=== PATIENT | female | born 1930 | race African-American/Black ===

== ENCOUNTER 2017-12-08 20:47 | Inpatient (IN) | payer MEDICARE ==
[~2017-12-08] VITALS: Ht 152.4 cm; Wt 60.7 kg
[2017-12-09] MEDS ORDERED: DONE5TAB7 PO (00:53)
[2017-12-09] MEDS ORDERED: HYDR-3516 PO (00:53)
[2017-12-09 00:59] VITALS: BP 199/84; PULSE 85; RESP 18; TEMP 98.1; O2SAT 94
[2017-12-09] MEDS ORDERED: cloNIDine HCL 0.1 MG TAB PO ONE (01:30)
[2017-12-09] MEDS ORDERED: GLUCAGON 1 MG/ML VIAL OTHER PRN (02:30)
[2017-12-09] MEDS ORDERED: DEXTROSE 50% IN WATER 50 ML VIAL(D50) IV PUSH PRN (02:30)
--- NOTE | 2017-12-09 02:54 | HHI.HP ---
[facility] Service [facility] Hospitalists . Primary Care Physician Dr. Hernández . Admission Diagnosis Biliary Obstruction . Diagnoses: (1) Biliary obstruction (2) Hypertension (3) Neuropathy (4) Diabetic leg ulcer (5) Type 2 diabetes mellitus Chief Complaint: Abdominal pain Travel History International Travel<30 Days: No Contact w/Intl Traveler <30 Da: No History of Present Illness Ms. Petty is an 87 year-old female with a history of diet-controlled DM, hypertension, neuropathy, and chronic left leg diabetic ulcers who presented to [facility] in [place] on 12/07/17 for evaluation for 3 weeks of diffuse abdominal pain with nausea, poor appetite and unintentional 10 pound weight loss in a 3 week period. Had reported 1 melanotic stool that occurred 3 weeks ago with subsequent white-appearing stools. CT of the abdomen showed diffuse colonic wall thickening with mild infiltration of the surrounding fat concerning for pancolitis and also intrahepatic biliary ductal dilation with innumerable cystic lesions involving the body and the tail of the pancreas possibly reflecting malignancy or multiple pseudocysts. Admission bilirubin was 7.2, AST was 217, ALT was 338, and alkaline phosphatase 847. Imaging was suspicious for pancreatic neoplasm partially obstructing the biliary ductal system. ERCP sphincterectomy was attempted 12/08/[address] Lawler that he was unable to get through the obstruction and now plans a percutaneous cholangiogram this morning. Therefore, the patient was transferred from [place] to [facility] for the procedure with admission to the hospitalist service for medical optimization of diabetes and hypertension. Patient reports severe abdominal pain brought her to the ED in [place]. She states she had 7 loose liquid yellow stools in the ED there and the abdominal pain felt better. She also states she had some nausea and vomiting. Currently , all she is complaining of is mild diffuse abdominal pain. She reports adequate relief with IV morphine. She has some mild cognitive impairment c/w dementia. She reports that she has had the Left lower leg wounds r/t diabetes since "just after " 2016 and sees a [place] wound care physician once weekly for this. She states that she takes PRN Craig for the leg wound pain. Review of Systems Except as stated in HPI: all other systems reviewed are Neg Past Family Social History Past Medical History Hyperbilirubinemia, pancolitis, cystic lesions of the body and tail of the pancreas- Suspicion for pancreatic mass - found to 12/07/2017 Type 2 diabetes mellitus, diet controlled History of hypertension Dementia Neuropathy Chronic lower extremity diabetic ulcers . Past Surgical History Hysterectomy Knee surgery . Reported Medications Gabapentin 1 tab by mouth twice a day Donepezil 5 mg by mouth daily Craig 5/325 mg by mouth as needed for pain . Allergies: Coded Allergies: No Known Allergies (Unverified , 12/09/17) Active Ordered Medications Current Medications Donepezil HCl (Aricept) 5 mg HS PO ; Start 12/09/17 at 21:00 Clonidine (Catapres) 0.1 mg ONCE ONCE PO Last administered on 12/09/17at 01:32 ; Start 12/09/17 at 01:30; Stop 12/09/17 at 01:31; Status DC . Family History Mother with CVA Denies family history of CVA . Social History Tobacco: Never smoked Alcohol: Denies Illicit Drugs: Denies . Physical Exam Vital Signs Vital Signs Date Time Temp Pulse Resp B/P (MAP) Pulse Ox O2 Delivery O2 Flow Rate FiO2 12/09/17 00:59 98.1 85 18 199/84 (122) 94 Physical Exam GENERAL: This is a thin elderly female patient, in no apparent distress. SKIN: No rashes. Cool and dry. HEAD: Atraumatic. Normocephalic. EYES: No scleral icterus. No injection or drainage. ENT: Nose without bleeding, purulent drainage. Mucosa dry. NECK: Trachea midline. No JVD or lymphadenopathy. CARDIOVASCULAR: Regular rate and rhythm without murmurs, gallops, or rubs. RESPIRATORY: Clear to auscultation. Breath sounds equal bilaterally. No wheezes , rales, or rhonchi. GASTROINTESTINAL: Normal bowel sounds. Abdomen soft, tender, nondistended. No guarding. MUSCULOSKELETAL: Extremities without clubbing, cyanosis, or edema. No calf tenderness. NEUROLOGICAL: Awake and alert. Motor and sensory grossly within normal limits. Normal speech. . Laboratory Summary from [facility] 12/08/2017 WBC 5.4, hemoglobin 10.3, hematocrit 32.3, platelet count 206,000, INR 1.2, APTT 34.0 Sodium 141, potassium 3.3, chloride 105, carbon dioxide 26, anion gap 14, BUN 6.0, creatinine 0.25, estimated creatinine clearance 112.9, estimated GFR greater than 90, bun/creatinine ratio 24.0, fasting glucose 93, calcium 8.9, lipase on admission was normal at 39 . Imaging Summary from [facility] Abdominal ultrasound 12/08/2017 Gallbladder not visualized. Common bile duct dilated measuring 9 mm in diameter. Intrahepatic ductal dilatation. Diffuse coarsening of the hepatic echotexture compatible with fatty infiltration. Diffusely abnormal pancreas with multiple cystic collections throughout. Largest discrete cyst measuring 1.5 x 1.4 x 2.6 cm. Very little normal parenchyma noted. The prominence of the common bile duct and intrahepatic radicals are suspicious for cystic pancreatic neoplasm partially obstructing the biliary ductal system. CT of abdomen and pelvis with contrast dated 12/07/2017 Apparent cholecystectomy possibly accounting for intrahepatic and common bile duct dilatation though there is appearance of prompt tapering of the distal common bile duct with numerous cystic lesions within the pancreas. Pancreatic neoplasm could not be excluded. Diverticulosis without diverticulitis. Colonic wall thickening versus incomplete distention with possibly an underlying infectious/inflammatory process. Urinalysis performed 12/07/2017 was not consistent with UTI . Course EKG with rate of 64, QTC at 480 ms, sinus rhythm with marked right axis deviation and intraventricular conduction delay and extensive nonspecific ST and T wave changes . Caprini VTE Risk Assessment Caprini VTE Risk Assessment: Mod/High Risk (score >= 2) Caprini Risk Assessment Model Point Value = 1 Point Value = 2 Point Value = 3 Point Value = 5 Age 41-60 Minor surgery BMI > 25 kg/m2 Swollen legs Varicose veins or History of unexplained or recurrent spontaneous Oral contraceptives or hormone replacement Sepsis (< 1 month) Serious lung disease, including pneumonia (< 1 month) Abnormal pulmonary function Acute myocardial infarction Congestive heart failure (< 1 month) History of inflammatory bowel disease Medical patient at bed rest Age 61-74 Arthroscopic surgery Major open surgery (> 45 min) Laparoscopic surgery (> 45 min) Malignancy Confined to bed (> 72 hours) Immobilizing plaster cast Central venous access Age >= 75 History of VTE Family history of VTE Factor V Leiden Prothrombin [id number] Lupus anticoagulant Anticardiolipin antibodies Elevated serum homocysteine Heparin-induced thrombocytopenia Other congenital or acquired thrombophilia Stroke (< 1 month) Elective arthroplasty Hip, pelvis, or leg fracture Acute spinal cord injury (< 1 month) Prophylaxis Regimen Total Risk Factor Score Risk Level Prophylaxis Regimen 0-1 Low Early ambulation 2 Moderate Order ONE of the following: *Sequential Compression Device (SCD) *Heparin 5000 units SQ BID 3-4 Higher Order ONE of the following medications: *Heparin 5000 units SQ TID *Enoxaparin/Lovenox 40 mg SQ daily (WT < 150 kg, CrCl > 30 mL/min) *Enoxaparin/Lovenox 30 mg SQ daily (WT < 150 kg, CrCl > 10-29 mL/min) *Enoxaparin/Lovenox 30 mg SQ BID (WT < 150 kg, CrCl > 30 mL/min) AND/OR *Sequential Compression Device (SCD) 5 or more Highest Order ONE of the following medications: *Heparin 5000 units SQ TID (Preferred with Epidurals) *Enoxaparin/Lovenox 40 mg SQ daily (WT < 150 kg, CrCl > 30 mL/min) *Enoxaparin/Lovenox 30 mg SQ daily (WT < 150 kg, CrCl > 10-29 mL/min) *Enoxaparin/Lovenox 30 mg SQ BID (WT < 150 kg, CrCl > 30 mL/min) AND *Sequential Compression Device (SCD) Assessment and Plan Problem List: (1) Biliary obstruction ICD Code: K83.1 - Obstruction of bile duct (2) Type 2 diabetes mellitus ICD Code: E11.9 - Type 2 diabetes mellitus without complications Status: Chronic (3) Hypertension ICD Code: I10 - Essential (primary) hypertension (4) Neuropathy ICD Code: G62.9 - Polyneuropathy, unspecified (5) Diabetic leg ulcer ICD Code: E11.622 - Type 2 diabetes mellitus with other skin ulcer; L97.909 - Non-pressure chronic ulcer of unspecified part of unspecified lower leg with unspecified severity Assessment and Plan Ms. Petty is an 87 year-old female with a history of diet-controlled DM, hypertension, neuropathy, and chronic left leg diabetic ulcers who presented to [facility] in [place] on 12/07/17 for evaluation for 3 weeks of diffuse abdominal pain with nausea, poor appetite and unintentional 10 pound weight loss in a 3 week period. Had reported 1 melanotic stool that occurred 3 weeks ago with subsequent white-appearing stools. CT of the abdomen showed diffuse colonic wall thickening with mild infiltration of the surrounding fat concerning for pancolitis and also intrahepatic biliary ductal dilation with innumerable cystic lesions involving the body and the tail of the pancreas possibly reflecting malignancy or multiple pseudocysts. Admission bilirubin was 7.2, AST was 217, ALT was 338, and alkaline phosphatase 847. Imaging was suspicious for pancreatic neoplasm partially obstructing the biliary ductal system. ERCP sphincterectomy was attempted 12/08/[address] Lawler that he was unable to get through the obstruction and now plans a percutaneous cholangiogram this morning. Therefore, the patient was transferred from [place] to [facility] for the procedure with admission to the hospitalist service for medical optimization of diabetes and hypertension. Biliary obstruction Suspected pancreatic neoplasm - Dr. Lawler consulted - NPO - NS at 100 cc/hr - Morphine 1 mg IV every 3 hours when necessary for pain Hypertension - Patient's blood pressure was elevated upon arrival - Clonidine 0.1 mg by mouth was given - We'll monitor trends in blood pressure and adjust treatments as indicated - the patient does not appear to be on home medication for this according to the review of the records from [facility] - We will likely need maintenance medication for her blood pressure Type 2 Diabetes Mellitus - Accu-Cheks before meals and at bedtime with low-dose NovoLog sliding scale coverage - PRN Hypoglycemia protocol - Monitor trends and blood glucose readings and adjust treatments as indicated Neuropathy - We'll need to confirm dose of home Neurontin to resume Diabetic leg ulcers - Consult wound care nurse DVT prophylaxis SCDs/TEDs right lower extremity only, contraindicated due to left lower extremity wounds - discussed with RN at patient's bedside - chemoprophylaxis when cleared by GI . Discussed Condition With Patient, RN, and Dr. Riggins . Physician Certification 2 Midnight Certification Type: Admission for Inpatient Services Order for Inpatient Services The services are ordered in accordance with Medicare regulations or non- Medicare payer requirements, as applicable. In the case of services not specified as inpatient-only, they are appropriately provided as inpatient services in accordance with the 2-midnight benchmark. Estimated LOS (days): 3 days is the estimated time the patient will need to remain in the hospital, assuming treatment plan goals are met and no additional complications. Post-Hospital Plan: Not yet determined Niurka Sumner Dec 09, 2017 02:54
[2017-12-09] MEDS: SODIUM CHLOR 0.9% 1000 ML INJ 1,000 ML IV SCH ×3 (03:18→20:13)
[2017-12-09 04:00] VITALS: BP 167/69; PULSE 66; RESP 18; TEMP 98.5; O2SAT 93
[2017-12-09] MEDS: INSULIN ASPART SUPPLEMENTAL SCALE SQ SCH ×4 (07:53→21:00)
[2017-12-09 08:00] VITALS: BP 145/65; PULSE 80; RESP 19; TEMP 98; O2SAT 96
[2017-12-09] MEDS: FAMOTIDINE 20 MG/2 ML VIAL IV PUSH SCH ×2 (09:13→20:42)
[2017-12-09 11:00] LABS: AUTOMATED NEUTROPHIL # 4.1 TH/MM3 (1.8-7.7); BASOPHIL % 0.5 % (0.0-2.0); EOSINOPHIL % 0.4 % (0.0-4.0); HEMATOCRIT 31.2 % (35.0-46.0); HEMOGLOBIN 10.3 GM/DL (11.6-15.3); LYMPH % 20.4 % (9.0-44.0); LYMPHOCYTE # 1.2 TH/MM3 (1.0-4.8); MEAN CELL VOLUME 89.7 FL (80.0-100.0); MEAN CORPUSCULAR HEMOGLOBIN 29.7 PG (27.0-34.0); MEAN CORPUSCULAR HGB CONC 33.1 % (32.0-36.0); MEAN PLATELET VOLUME 9.6 FL (7.0-11.0); MONOCYTE # 0.7 TH/MM3 (0-0.9); NEUT % 67.7 % (16.0-70.0); PLATELET COUNT 220 TH/MM3 (150-450); RED BLOOD COUNT 3.48 MIL/MM3 (4.00-5.30); RED CELL DISTRIBUTION WIDTH 17.2 % (11.6-17.2)
[2017-12-09 11:22] LABS: ALBUMIN 2.4 GM/DL (3.4-5.0); AST (GOT) 170 U/L (15-37); BICARBONATE 28.1 MEQ/L (21.0-32.0); BLOOD UREA NITROGEN 7 MG/DL (7-18); CALCIUM 9.1 MG/DL (8.5-10.1); CHLORIDE 106 MEQ/L (98-107); CREATININE 0.48 MG/DL (0.50-1.00); GLOMERULAR FILTRATION RATE 148 ML/MIN (>89); GLUCOSE,RANDOM 71 MG/DL (74-106); SODIUM (NA) 141 MEQ/L (136-145)
[2017-12-09 11:23] LABS: ALT (GPT) 285 U/L (10-53)
[2017-12-09 11:25] LABS: ALKALINE PHOSPHATASE 823 U/L (45-117); TOTAL PROTEIN 6.4 GM/DL (6.4-8.2)
[2017-12-09 12:00] VITALS: BP 165/74; PULSE 68; RESP 18; TEMP 97.4; O2SAT 99
--- NOTE | 2017-12-09 14:32 | RADRPT ---
EXAM DATE/TIME: 12/09/2017 13:46 [place] COMPARISON: No previous studies available for comparison. INDICATIONS : Pancreatic mass. CONTRAST: 20 cc Omniscan (gadodiamide) IV MEDICAL HISTORY : Hypertension. Diabetes mellitus type 2. SURGICAL HISTORY : Hysterectomy. Knee surgery. ENCOUNTER: Initial ACUITY: 1 day PAIN SCORE: 4/10 LOCATION: Abdomen. TECHNIQUE: Multiplanar, multisequence magnetic resonance imaging of the abdomen was performed. High-resolution 3D dataset was utilized to reconstruct maximum-intensity projection (MIP) images. FINDINGS: INTRAHEPATIC BILE DUCTS: There is mild patient of the biliary tree. EXTRAHEPATIC BILE DUCTS: The common bile duct measures 1.3 cm. No stone or filling defect is identified. However, the distal c ommon bile duct is not well-visualized. However, there is a segment which appears to be tapered sugge stive of a stricture.. GALLBLADDER: Nonvisualized. Most likely surgically removed. LIVER: Normal size and signal intensity. No liver lesion is identified. Portal vein is within normal limits . PANCREAS: There is diffuse dilatation of the pancreatic duct and there are numerous cystic structures throughou t the entire pancreas. This is most likely from chronic pancreatitis. There is a nonspecific increase d soft tissue in the head of the pancreas. This could be a mass. OTHER: The remaining visualized structures demonstrate no acute abnormality. CONCLUSION: 1. There is dilatation of the common bile duct measuring at 1.3 cm. There is narrowing of the distal common bile duct suspicious for a stricture. There is some nonspecific increased soft tissue in the h ead of the pancreas. This is suspicious for a pancreatic mass. Recommend ERCP for further evaluation. 2. There is diffuse dilatation of the main pancreatic duct with numerous cystic type lesions througho ut the entire pancreas. This is probably related to chronic pancreatitis. Fredy De La Fuente MD on December 09, 2017 at 14:19 Board Certified Radiologist. This report was verified electronically.
[2017-12-09] MEDS ORDERED: GADODIAMIDE PF 287 MG/ML 10 ML VIAL (for RAD MRI) IVCONTRAST ONE (15:50)
[2017-12-09 16:00] VITALS: BP 171/77; PULSE 70; RESP 19; TEMP 97.6; O2SAT 100
[2017-12-09 17:58] LABS: INTERNATIONAL NORMALIZED RATIO 1.1 RATIO; PROTHROMBIN TIME - PATIENT 11.6 SEC (9.8-11.6)
--- NOTE | 2017-12-09 18:27 | MB ---
cc: CHRISTINA MONTOYA M.D. DATE OF CONSULTATION: 12/09/2017. REASON FOR CONSULTATION: Obstructive jaundice. DATE OF : 1930. REFERRING PHYSICIAN: Dr. Riggins. HISTORY OF PRESENT ILLNESS: Thank you for the consultation. This is an 87-year-old lady who has multiple medical problems. The patient was at [facility] yesterday for jaundice and general weakness for three weeks with nausea and abdominal pain. She had lost weight in the last few weeks. The patient had one episode of bleeding. The patient had CT scan which showed diffuse colonic wall thickening and questionable pancolitis. Also she has dilated biliary tree with cystic lesion in the body and tail of the pancreas, possibly malignancy, with dilation of biliary tree. The patient had ERCP which showed dilation of the pancreatic duct and abrupt cut in the common bile duct so a stent was not possible to place cause the wire could not go up the duct across the stricture so the patient was transferred to this hospital for radiological procedure with PTC. The patient denies any significant problems. She feels okay at this time. She is still generally weak. REVIEW OF SYSTEMS: All twelve points negative except for the history of present illness. PAST MEDICAL HISTORY: Past medical history significant for: 1. Mild dementia. 2. Neuropathy. 3. Diabetes with diabetic ulcer. 4. Hypertension. 5. Questionable pancolitis. 6. Hysterectomy. 7. Knee surgery. MEDICATIONS: Reviewed in the chart. ALLERGIES: NO KNOWN DRUG ALLERGIES. FAMILY HISTORY: Family history is significant for CVA. SOCIAL HISTORY: No tobacco, drugs or alcohol. PHYSICAL EXAMINATION: GENERAL: Alert, oriented, and in no acute distress. VITAL SIGNS: Vital signs are stable. HEAD, EYES, EARS, NOSE, THROAT: Pupils are round and reactive to light. NECK: The neck is supple. CHEST: Clear to auscultation and percussion. CARDIAC: Regular rate and rhythm. ABDOMEN: Abdomen soft. Mild discomfort throughout the abdomen. Positive bowel sounds. No hepatosplenomegaly. EXTREMITIES: No edema, clubbing or cyanosis. NEUROLOGIC: Neurologically intact. PSYCHIATRIC: Psychologically appropriate. LABORATORY DATA: White count 6.0, hemoglobin 10.3, platelet 220,000. Total bilirubin 7.0. AST 170. ALT 285. Alkaline phosphatase 823. IMAGING STUDIES: MRI showed dilatation of the common bile duct measuring up to 1.3 cm with narrowing of the distal duct suspicious for stricture. Increased soft tissue of the head of the pancreas, questionable pancreatic mass. Multiple cysts throughout the mass. ASSESSMENT AND PLAN: An 87-year-old lady who has obstructive jaundice with common bile duct stricture and dilatation. The patient will need PTC. I discussed the case with Dr. Chaudhari and he is going to plan the procedure tomorrow with possible stent placement. The patient will need to follow on the tumor markers. She might need endoscopic ultrasound with biopsy for the pancreas if she feels that she wants to be aggressive in the treatment. Questionable colitis. The patient denies any diarrhea. No other symptoms. Will consider colonoscopy when the patient is more stable and after done with the issue of the pancreas. MD STANFORD Moy/JOSSELYN /3:35 PM /6:15 PM
[2017-12-09] MEDS: ONDANSETRON HCL 4 MG/2 ML VIAL IV PUSH PRN (20:42)
[2017-12-09 20:45] VITALS: BP 164/70; PULSE 67; RESP 17; TEMP 97.7; O2SAT 97
[2017-12-09] MEDS: DONEPEZIL HCL 5 MG TAB PO SCH (20:48)
[2017-12-10 00:45] VITALS: BP 145/68; PULSE 60; RESP 20; TEMP 98.8; O2SAT 98
[2017-12-10 05:45] VITALS: BP 150/69; PULSE 66; RESP 19; TEMP 97; O2SAT 98
[2017-12-10 08:00] VITALS: BP 155/72; PULSE 66; RESP 19; TEMP 98.2; O2SAT 96
[2017-12-10] MEDS: INSULIN ASPART SUPPLEMENTAL SCALE SQ SCH ×4 (08:00→21:00)
[2017-12-10] MEDS: FAMOTIDINE 20 MG/2 ML VIAL IV PUSH SCH ×2 (08:21→20:13)
--- NOTE | 2017-12-10 10:58 | HHI.PR ---
Subjective Remarks Follow-up for common bile duct obstruction secondary to pancreatic mass Patient stated that she was very sleepy today. She continues abdominal pain. Feels a little nauseous. Denies any vomiting. She remains afebrile. No other concerns. Objective Vitals Vital Signs Date Time Temp Pulse Resp B/P (MAP) Pulse Ox O2 Delivery O2 Flow Rate FiO2 12/10/17 08:00 98.2 66 19 155/72 (99) 96 12/10/17 05:45 97.0 66 19 150/69 (96) 98 12/10/17 00:45 98.8 60 20 145/68 (93) 98 12/09/17 20:45 97.7 67 17 164/70 (101) 97 12/09/17 16:00 97.6 70 19 171/77 (108) 100 12/09/17 12:00 97.4 68 18 165/74 (104) 99 I/O 12/09/17 12/09/17 12/09/17 12/10/17 12/10/17 12/10/17 07:00 15:00 23:00 07:00 15:00 23:00 Intake Total 302 ml 800 ml 0 ml Balance 302 ml 800 ml 0 ml Intake Oral 800 ml 0 ml IV Total 302 ml # Voids 3 0 2 # Bowel Movements 1 0 0 Result Diagram: 12/09/1745 12/09/17844 Objective Remarks GENERAL: thin female in NAD CARDIOVASCULAR: Regular rate and rhythm without murmurs, gallops, or rubs. RESPIRATORY: Breath sounds equal bilaterally. No accessory muscle use. GASTROINTESTINAL: Abdomen soft, TTP with deep palpation in RUQ, nondistended. Negative for any peritoneal signs. Medications and IVs Current Medications Donepezil HCl (Aricept) 5 mg HS PO Last administered on 12/09/17at 20:48; Start 12/09/17 at 21:00 Clonidine (Catapres) 0.1 mg ONCE ONCE PO Last administered on 12/09/17at 01:32 ; Start 12/09/17 at 01:30; Stop 12/09/17 at 01:31; Status DC Famotidine (Pepcid Inj) 10 mg Q12H IV PUSH Last administered on 12/10/17at 08:21 ; Start 12/09/17 at 09:00 Sodium Chloride 1,000 ml @ 100 mls/hr Q10H IV Last administered on 12/09/17at 13:00; Start 12/09/17 at 03:00 Dextrose (D50w (Vial) Inj) 50 ml UNSCH PRN IV PUSH HYPOGLYCEMIA-SEE COMMENTS; Start 12/09/17 at 02:30 Glucagon (Glucagon Inj) 1 mg UNSCH PRN OTHER HYPOGLYCEMIA-SEE COMMENTS; Start 12/09/17 at 02:30 Insulin Aspart (NovoLOG SUPPLEMENTAL SCALE) 1 ACHS SLIDING SCALE SQ ; Start at 08:00 Morphine Sulfate (Morphine Inj) 1 mg Q3H PRN IV PUSH Pain > 3; Start 12/09/17 at 02:30 Ondansetron HCl (Zofran Inj) 4 mg Q6HR PRN IV PUSH NAUSEA OR VOMITING Last administered on 12/09/17at 20:42; Start 12/09/17 at 02:30 Gadodiamide (Omniscan Pf Inj) 9 ml STK-MED ONCE IVCONTRAST Last administered on 12/09/17at 15:50; Start 12/09/17 at 15:50; Stop 12/09/17 at 15:51; Status DC A/P Problem List: (1) Biliary obstruction ICD Code: K83.1 - Obstruction of bile duct (2) Type 2 diabetes mellitus ICD Code: E11.9 - Type 2 diabetes mellitus without complications Status: Chronic (3) Hypertension ICD Code: I10 - Essential (primary) hypertension (4) Neuropathy ICD Code: G62.9 - Polyneuropathy, unspecified (5) Diabetic leg ulcer ICD Code: E11.622 - Type 2 diabetes mellitus with other skin ulcer; L97.909 - Non-pressure chronic ulcer of unspecified part of unspecified lower leg with unspecified severity Assessment and Plan Ms. Petty is an 87 year-old female with a history of diet-controlled DM, hypertension, neuropathy, and chronic left leg diabetic ulcers who presented to [facility] in [place] on 12/07/17 for evaluation for 3 weeks of diffuse abdominal pain with nausea, poor appetite and unintentional 10 pound weight loss in a 3 week period. Had reported 1 melanotic stool that occurred 3 weeks ago with subsequent white-appearing stools. CT of the abdomen showed diffuse colonic wall thickening with mild infiltration of the surrounding fat concerning for pancolitis and also intrahepatic biliary ductal dilation with innumerable cystic lesions involving the body and the tail of the pancreas Biliary obstruction s/p ERCP sphincterectomy was attempted 12/08/[address] 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 Lawler consulted and he consulted IR for PCI. - NPO, on NS at 100 cc/hr, and Morphine 1 mg IV every 3 hours when necessary for pain. -We will repeat labs today. Hypertension - Patient's blood pressure was elevated upon arrival - Clonidine 0.1 mg by mouth was given -Continue current regimen. Type 2 Diabetes Mellitus - Accu-Cheks before meals and at bedtime with low-dose NovoLog sliding scale coverage - PRN Hypoglycemia protocol - Monitor trends and blood glucose readings and adjust treatments as indicated Neuropathy -Pending confirmation for patient's Neurontin dosage. Diabetic leg ulcers - Consult wound care nurse DVT prophylaxis SCDs/TEDs right lower extremity only, contraindicated due to left lower extremity wounds - discussed with RN at patient's bedside - chemoprophylaxis when cleared by GI Discharge Planning Patient scheduled for PCI today with IR. Lanny Ledezma MD Dec 10, 2017 10:57
--- NOTE | 2017-12-10 11:46 | HHI.GIFU ---
Subjective Remarks Up In room Complaints of dysphagia Dates she is planned for EGD today Objective Vitals I&O Vital Signs Date Time Temp Pulse Resp B/P (MAP) Pulse Ox O2 Delivery O2 Flow Rate FiO2 12/10/17 08:00 98.2 66 19 155/72 (99) 96 12/10/17 05:45 97.0 66 19 150/69 (96) 98 12/10/17 00:45 98.8 60 20 145/68 (93) 98 12/09/17 20:45 97.7 67 17 164/70 (101) 97 12/09/17 16:00 97.6 70 19 171/77 (108) 100 12/09/17 12:00 97.4 68 18 165/74 (104) 99 I/O 12/09/17 12/09/17 12/09/17 12/10/17 12/10/17 12/10/17 07:00 15:00 23:00 07:00 15:00 23:00 Intake Total 302 ml 800 ml 0 ml Balance 302 ml 800 ml 0 ml Intake Oral 800 ml 0 ml IV Total 302 ml # Voids 3 0 2 # Bowel Movements 1 0 0 Laboratory Laboratory Tests Test 12/09/17 17:17 Prothrombin Time 11.6 Prothromb Time International Ratio 1.1 Activated Partial Thromboplast Time 21.7 Physical Exam HEENT: Normocephalic atraumatic NECK: Neck is supple, no obvious deformity CHEST: No obvious shortness of breath CARDIAC: Regular rate and rhythm with no murmur gallop or rubs. ABDOMEN: Soft, nondistended, nontender; no hepatosplenomegaly; bowel sounds are present in all four quadrants. EXTREMITIES: No clubbing, cyanosis, or edema. SKIN: Normal; no rash; no jaundice. TRANSMISSION REPAIRER: No focal deficits; alert and oriented times three. Assessment and Plan Plan Plan EGD today, probable dilation will be needed Further recommendations after testing today This was a brief visit per myself, will also be seen per Dr. Santacruz during EGD Pamela Lee Dec 10, 2017 11:46
[2017-12-10 12:00] VITALS: BP 181/82; PULSE 72; RESP 19; TEMP 97.8; O2SAT 96
[2017-12-10] MEDS ORDERED: ONDANSETRON HCL 4 MG/2 ML VIAL IV ONE (12:00)
[2017-12-10] MEDS ORDERED: LABETALOL HCL 100 MG/20 ML VIAL IV ONE (12:00)
[2017-12-10] MEDS ORDERED: PROPOFOL 200 MG/20 ML AMP IV ONE (12:00)
[2017-12-10] MEDS ORDERED: DEXAMETHASONE SOD PHOS 4 MG/ML VIAL IV ONE (12:00)
[2017-12-10] MEDS: amLODIPine BESYLATE 5 MG TAB PO SCH (12:20)
[2017-12-10] MEDS ORDERED: LEVOFLOXACIN 500 MG PREMIX INJ 100 ML IV ONE (13:38)
[2017-12-10] MEDS ORDERED: IOHEXOL 350 MG/ML 50 ML BTL (for RAD DIAG) OTHER ONE (14:09)
--- NOTE | 2017-12-10 14:13 | PD.RAD ---
Post Procedure Progress Note Pre Procedure Diagnosis: (1) Biliary obstruction Post Procedure Diagnosis: (1) Biliary obstruction Procedure Date: Dec 10, 2017 Supervising Radiologist: Bertram Chaudhari Proceduralist/Assist: RT Raji(R) Anesthesia: MAC Plan of Activity Patient to Unit: PACU Patient Condition: Fair See PACS Report for procedural detail/treatment Drainage Procedure Procedure 1 Imaging Guidance: Fluoroscopy Side: Right Procedure Type: Biliary Drainage Procedure: Placement Kyrgyz: 8 Drainage: Marked Tree drainage Fluid Description: Bloody, Bilious Findings: distal CBD mass/stricture Plan cholangiogram with biopsy tomorrow Bertram Chaudhari MD Dec 10, 2017 14:13
[2017-12-10] MEDS ORDERED: *ONDANSETRON 4 MG VIAL PERIprocedural Use ONLY ONE (14:23)
--- NOTE | 2017-12-10 14:31 | RADRPT ---
EXAM DATE/TIME: 12/10/2017 14:38 [facility] COMPARISON: No previous studies available for comparison. INDICATIONS : Patient with a history of biliary obstruction. 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 DEVICE(S): 1.) 8 Kyrgyz internal/external biliary drain Anesthesia and pain control was provided by the Anesthesia department. TECHNIQUE: The patient was placed supine on the fluoroscopy table. Department of anesthesia repre sentatives were present for assistance with monitoring and sedation. The abdomen was prepped in steri le fashion. Full sterile technique was used, including cap, mask, sterile gloves and gown and a large sterile sheet. Hand hygiene and 2% chlorhexidine and/or betadine/alcohol prep was utilized per mariela col for cutaneous antisepsis. The skin and subcutaneous tissues were infiltrated with lidocaine solut ion. A small dermatotomy was made. Under direct fluoroscopic guidance, a 22 gauge Chiba needle was used to puncture into the right lobe of the liver. Small volume test contrast injections were performed. A peripheral biliary radical was fairly quickly identified and a 0.018 inch guidewire was introduced and manipulated into the common b ile duct. An AccuStick dilator was used to assist with insertion of a small caliber dilator. The quiñones sparenchymal tract was tested over a Tograysony-Juliann adapter revealing direct access into the biliary kaushik e with no significant vascular opacification identified. The AccuStick was then additionally used to assist with insertion of a larger dilator which was then used to manipulate a stiff angled Glidewire through a distal obstruction and into the duodenum.. The transparenchymal tract was dilated. An 8 Kyrgyz internal/external biliary drainage catheter was t hen inserted and formed up with loop in the second portion of the duodenum. Side holes extended up in to proximal biliary branch vessels. The catheter was secured with silk suture and connected to gravit y drainage with good return of bile. The patient tolerated the procedure well and was taken to recove ry in stable condition. FINDINGS: Moderate intra-and extrahepatic biliary ductal dilatation. Distal mass/stricture. CONCLUSION: Uncomplicated fluoroscopic guided percutaneous biliary drainage as described in rhoda l above. After adequate decompression of the biliary tree, the patient can return for dedicated chola ngiography and forcep biopsy tomorrow. Bertram Chaudhari MD on December 10, 2017 at 14:26 Board Certified Radiologist. This report was verified electronically.
[2017-12-10] MEDS ORDERED: DO NOT ADM ANY ANTICOAGULANT DRUGS PRN (14:45)
[2017-12-10] MEDS ORDERED: *ENALAPRILAT 1.25 MG/ML VIAL PERIprocedural Use ONLY ONE (15:00)
[2017-12-10 16:00] VITALS: BP 199/81; PULSE 55; RESP 18; TEMP 97.9; O2SAT 96
[2017-12-10] MEDS: cloNIDine HCL 0.1 MG TAB PO PRN (16:15)
[2017-12-10 17:22] LABS: HEMATOCRIT 35.2 % (35.0-46.0); HEMOGLOBIN 11.6 GM/DL (11.6-15.3); MEAN CELL VOLUME 90.3 FL (80.0-100.0); MEAN CORPUSCULAR HEMOGLOBIN 29.8 PG (27.0-34.0); MEAN PLATELET VOLUME 9.7 FL (7.0-11.0); PLATELET COUNT 239 TH/MM3 (150-450); RED CELL DISTRIBUTION WIDTH 17.7 % (11.6-17.2); WHITE BLOOD COUNT 4.8 TH/MM3 (4.0-11.0)
[2017-12-10 17:42] LABS: ALKALINE PHOSPHATASE 930 U/L (45-117); TOTAL BILIRUBIN ADULT 9.2 MG/DL (0.2-1.0); TOTAL PROTEIN 7.5 GM/DL (6.4-8.2)
[2017-12-10 17:44] LABS: ALBUMIN 2.7 GM/DL (3.4-5.0); ALT (GPT) 328 U/L (10-53); AST (GOT) 257 U/L (15-37); BICARBONATE 27.3 MEQ/L (21.0-32.0); BLOOD UREA NITROGEN 5 MG/DL (7-18); CALCIUM 9.1 MG/DL (8.5-10.1); CHLORIDE 103 MEQ/L (98-107); CREATININE 0.52 MG/DL (0.50-1.00); GLOMERULAR FILTRATION RATE 135 ML/MIN (>89); GLUCOSE,RANDOM 143 MG/DL (74-106); SODIUM (NA) 138 MEQ/L (136-145)
[2017-12-10 20:00] VITALS: BP 174/77; PULSE 64; RESP 18; TEMP 99.1; O2SAT 97
[2017-12-10] MEDS: ONDANSETRON HCL 4 MG/2 ML VIAL IV PUSH PRN (20:13)
[2017-12-10] MEDS: DONEPEZIL HCL 5 MG TAB PO SCH (20:13)
[2017-12-11] VITALS (13 sets, daily range): BP systolic 126–180; BP diastolic 64–79; PULSE 62–88; RESP 16–20; TEMP 97.4–98.4; O2SAT 95–98
[2017-12-11] MEDS: SODIUM CHLOR 0.9% 1000 ML INJ 1,000 ML IV SCH ×2 (05:00→17:09)
[2017-12-11 07:11] LABS: HEMOGLOBIN 10.4 GM/DL (11.6-15.3); MEAN CELL VOLUME 88.1 FL (80.0-100.0); MEAN CORPUSCULAR HEMOGLOBIN 29.6 PG (27.0-34.0); MEAN CORPUSCULAR HGB CONC 33.6 % (32.0-36.0); MEAN PLATELET VOLUME 9.1 FL (7.0-11.0); PLATELET COUNT 225 TH/MM3 (150-450); RED BLOOD COUNT 3.52 MIL/MM3 (4.00-5.30); RED CELL DISTRIBUTION WIDTH 17.2 % (11.6-17.2); WHITE BLOOD COUNT 5.8 TH/MM3 (4.0-11.0)
[2017-12-11 07:53] LABS: ALBUMIN 2.5 GM/DL (3.4-5.0); ALKALINE PHOSPHATASE 869 U/L (45-117); ALT (GPT) 274 U/L (10-53); AST (GOT) 151 U/L (15-37); BICARBONATE 28.6 MEQ/L (21.0-32.0); BLOOD UREA NITROGEN 6 MG/DL (7-18); CALCIUM 9.3 MG/DL (8.5-10.1); CHLORIDE 105 MEQ/L (98-107); CREATININE 0.49 MG/DL (0.50-1.00); GLOMERULAR FILTRATION RATE 145 ML/MIN (>89); GLUCOSE,RANDOM 128 MG/DL (74-106); SODIUM (NA) 140 MEQ/L (136-145); TOTAL BILIRUBIN ADULT 3.9 MG/DL (0.2-1.0); TOTAL PROTEIN 6.7 GM/DL (6.4-8.2)
[2017-12-11] MEDS: INSULIN ASPART SUPPLEMENTAL SCALE SQ SCH ×4 (08:00→20:48)
[2017-12-11] MEDS: FAMOTIDINE 20 MG/2 ML VIAL IV PUSH SCH ×2 (08:11→20:48)
[2017-12-11] MEDS: amLODIPine BESYLATE 5 MG TAB PO SCH (08:11)
[2017-12-11] MEDS: MORPHINE SULFATE 2 MG/ML INJ IV PUSH PRN (08:12)
[2017-12-11] MEDS ORDERED: POTASSIUM CHLORIDE 25 MEQ EFFERVESCENT TAB PO ONE (08:30)
--- NOTE | 2017-12-11 10:04 | HHI.PR ---
Subjective Remarks Follow-up for common bile duct dilatation Patient stated that she continues to have abdominal pain and that it is the same. She rates it about 6 out of 10. Denies any nausea or vomiting. She ate after the procedure yesterday. Patient currently n.p.o. at the moment because she is scheduled for cholangiogram today. Her nurses at the bedside during the interview. She has no other complaints. Objective Vitals Vital Signs Date Time Temp Pulse Resp B/P (MAP) Pulse Ox O2 Delivery O2 Flow Rate FiO2 12/11/17 08:24 98.3 69 20 171/75 (107) 98 12/11/17 08:19 16 12/11/17 08:01 96 Nasal Cannula 2.00 12/11/17 04:00 98.4 78 17 156/72 (100) 96 12/11/17 00:00 98.0 68 19 180/79 (112) 98 12/10/17 20:00 99.1 64 18 174/77 (109) 97 12/10/17 16:00 97.9 55 18 199/81 (120) 96 12/10/17 15:05 97.1 54 16 176/98 (124) 100 Nasal Cannula 2 12/10/17 15:00 56 17 176/86 (116) 100 Nasal Cannula 2 12/10/17 14:45 59 17 182/75 (110) 100 Nasal Cannula 2 12/10/17 14:34 96.2 55 15 199/91 (127) 100 Nasal Cannula 2 12/10/17 12:00 97.8 72 19 181/82 (115) 96 I/O 12/10/17 12/10/17 12/10/17 12/11/17 12/11/17 12/11/17 07:00 15:00 23:00 07:00 15:00 23:00 Intake Total 0 ml 50 ml Output Total 40 ml Balance 0 ml 50 ml -40 ml Intake Oral 0 ml IV Total 50 ml Output Drainage Total 40 ml # Voids 2 3 # Bowel Movements 0 Result Diagram: 12/11/1762712/11/17627 Objective Remarks GENERAL: thin female in NAD CARDIOVASCULAR: Regular rate and rhythm without murmurs, gallops, or rubs. RESPIRATORY: Breath sounds equal bilaterally. No accessory muscle use. GASTROINTESTINAL: Abdomen soft, TTP with deep palpation in RUQ, nondistended. Negative for any peritoneal signs. Medications and IVs Current Medications Donepezil HCl (Aricept) 5 mg HS PO Last administered on 12/10/17at 20:13; Start 12/09/17 at 21:00 Clonidine (Catapres) 0.1 mg ONCE ONCE PO Last administered on 12/09/17at 01:32 ; Start 12/09/17 at 01:30; Stop 12/09/17 at 01:31; Status DC Famotidine (Pepcid Inj) 10 mg Q12H IV PUSH Last administered on 12/11/17at 08:11 ; Start 12/09/17 at 09:00 Sodium Chloride 1,000 ml @ 100 mls/hr Q10H IV Last administered on 12/09/17at 20:13; Start 12/09/17 at 03:00 Dextrose (D50w (Vial) Inj) 50 ml UNSCH PRN IV PUSH HYPOGLYCEMIA-SEE COMMENTS; Start 12/09/17 at 02:30 Glucagon (Glucagon Inj) 1 mg UNSCH PRN OTHER HYPOGLYCEMIA-SEE COMMENTS; Start 12/09/17 at 02:30 Insulin Aspart (NovoLOG SUPPLEMENTAL SCALE) 1 ACHS SLIDING SCALE SQ ; Start at 08:00 Morphine Sulfate (Morphine Inj) 1 mg Q3H PRN IV PUSH Pain > 3 Last administered on 12/11/17at 08:12; Start 12/09/17 at 02:30 Ondansetron HCl (Zofran Inj) 4 mg Q6HR PRN IV PUSH NAUSEA OR VOMITING Last administered on 12/10/17at 20:13; Start 12/09/17 at 02:30 Gadodiamide (Omniscan Pf Inj) 9 ml STK-MED ONCE IVCONTRAST Last administered on 12/09/17at 15:50; Start 12/09/17 at 15:50; Stop 12/09/17 at 15:51; Status DC Amlodipine Besylate (Norvasc) 5 mg DAILY PO Last administered on 12/11/17at 08: 11; Start 12/10/17 at 12:00; Stop 12/11/17 at 08:22; Status DC Fentanyl Citrate (fentaNYL INJ) 100 mcg STK-MED ONCE .ROUTE ; Start 12/10/17 at 12:52; Stop 12/10/17 at 12:53; Status DC Levofloxacin/ Dextrose 100 ml @ As Directed STK-MED ONCE IV ; Start 12/10/17 at 13:38; Stop 12/10/17 at 13:39; Status DC Iohexol (Omnipaque 350 Inj) 20 ml STK-MED ONCE OTHER Last administered on at 14:09; Start 12/10/17 at 14:09; Stop 12/10/17 at 14:10; Status DC Ondansetron HCl (*ZOFRAN INJ PERIprocedural ONLY) 4 mg STK-MED ONCE .ROUTE Last administered on 12/10/17at 14:23; Start 12/10/17 at 14:23; Stop 12/10/17 at 14:24; Status DC Miscellaneous Information ALL NURSING DEPARTME... UNSCH PRN .XX SEE LABEL COMMENTS; Start 12/10/17 at 14:45; Stop 12/11/17 at 14:44 Enalaprilat (*VASOTEC INJ PERIprocedural Use ONLY) 1.25 mg STK-MED ONCE .ROUTE Last administered on 12/10/17at 15:00; Start 12/10/17 at 15:00; Stop 12/10/17 at 15:01; Status DC Enalaprilat (Vasotec Inj) 2.5 mg Q6H PRN IV PUSH SBP>180 or DBP>100; Start at 16:00 Clonidine (Catapres) 0.1 mg Q8HR PRN PO SBP>180 or DBP>100 Last administered on 12/10/17at 16:15; Start 12/10/17 at 16:00 Potassium Bicarb/ Potassium Chloride (K-Lyte Cl Eff) 50 meq ONCE ONCE PO Last administered on 12/11/17at 08:56; Start 12/11/17 at 08:30; Stop 12/11/17 at 08:42; Status DC Amlodipine Besylate (Norvasc) 10 mg DAILY PO Last administered on 12/11/17at 08: 59; Start 12/11/17 at 09:00 A/P Problem List: (1) Biliary obstruction ICD Code: K83.1 - Obstruction of bile duct (2) Type 2 diabetes mellitus ICD Code: E11.9 - Type 2 diabetes mellitus without complications Status: Chronic (3) Hypertension ICD Code: I10 - Essential (primary) hypertension (4) Neuropathy ICD Code: G62.9 - Polyneuropathy, unspecified (5) Diabetic leg ulcer ICD Code: E11.622 - Type 2 diabetes mellitus with other skin ulcer; L97.909 - Non-pressure chronic ulcer of unspecified part of unspecified lower leg with unspecified severity Assessment and Plan Ms. Petty is an 87 year-old female with a history of diet-controlled DM, hypertension, neuropathy, and chronic left leg diabetic ulcers who presented to [facility] in [place] on 12/07/17 for evaluation for 3 weeks of diffuse abdominal pain with nausea, poor appetite and unintentional 10 pound weight loss in a 3 week period. Had reported 1 melanotic stool that occurred 3 weeks ago with subsequent white-appearing stools. CT of the abdomen showed diffuse colonic wall thickening with mild infiltration of the surrounding fat concerning for pancolitis and also intrahepatic biliary ductal dilation with innumerable cystic lesions involving the body and the tail of the pancreas Biliary obstruction s/p ERCP sphincterectomy was attempted 12/08/[address] 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 Lawler consulted and following. -Status post biliary drain placement by IR yesterday. Patient scheduled for cholangiogram today. Hypertension -Increase amlodipine to 10 mg p.o. daily. Continue with Vasotec and clonidine as needed. Type 2 Diabetes Mellitus - Accu-Cheks before meals and at bedtime with low-dose NovoLog sliding scale coverage - PRN Hypoglycemia protocol - Monitor trends and blood glucose readings and adjust treatments as indicated Neuropathy -Pending confirmation for patient's Neurontin dosage. Diabetic leg ulcers - Consult wound care nurse DVT prophylaxis SCDs/TEDs right lower extremity only, contraindicated due to left lower extremity wounds - chemoprophylaxis when cleared by GI Discharge Planning Patient scheduled for a cholangiogram today. Lanny Ledezma MD Dec 11, 2017 10:04
[2017-12-11] MEDS ORDERED: MIDAZOLAM HCL 2 MG/2 ML VIAL ONE ×2 (13:01→14:02)
[2017-12-11] MEDS ORDERED: LEVOFLOXACIN 500 MG PREMIX INJ 100 ML IV ONE (13:56)
[2017-12-11] MEDS ORDERED: IOHEXOL 350 MG/ML 50 ML BTL (for RAD DIAG) OTHER ONE (14:00)
--- NOTE | 2017-12-11 14:36 | PD.RAD ---
Post Procedure Progress Note Pre Procedure Diagnosis: (1) Biliary obstruction Post Procedure Diagnosis: (1) Biliary obstruction Procedure Date: Dec 11, 2017 Supervising Radiologist: Bertram Chaudhari Proceduralist/Assist: RT Raji(R) Anesthesia: Local, Conscious Sedation Plan of Activity Patient to Unit: ROPU Patient Condition: Fair See PACS Report for procedural detail/treatment Drainage Procedure Procedure 1 Imaging Guidance: Fluoroscopy Procedure Type: Biliary Drainage Procedure: Exchange Thai: 8 Drainage: [place] drainage Biopsy Imaging Guidance: Fluoroscopy Site: distal bile duct mass Specimen: Core Biopsy Bertram Chaudhari MD Dec 11, 2017 14:36
--- NOTE | 2017-12-11 15:46 | RADRPT ---
EXAM DATE/TIME: 12/11/2017 14:34 [facility] COMPARISON: No previous studies available for comparison. INDICATIONS : Patient with pancreatic mass and common bile duct stricture in need of biopsy. MEDICAL HISTORY : HTN, Diabetes, Neuropathy, Chronic left leg diabetic ulcers, Cystic lesions of the body and tail of t he pancreas, Hyperbilirubinemia, Pancolitis SURGICAL HISTORY : Knee surgery, Hysterectomy ENCOUNTER: Subsequent ACUITY: 4 - 6 days PAIN SCORE: 7/10 LOCATION: Biliary tube site FLUORO TIME: 4.3 minutes IMAGE SERIES: 4 SEDATION TIME: 30 minutes CONTRAST: 15 cc Omnipaque (iohexol) 350 MEDICATION(S): 1.) 4 mg midazolam (Versed) IV 2.) 200 mcg fentanyl (Sublimaze) IV Prophylactic antibiotics were administered with appropriate pre-procedure timing. Vancomycin within 2 hours of procedure, Ancef (or alternative) within 1 hour of procedure. DEVICE(S): 1.) 6 Bolivian EndoJaw disposable biopsy forceps 2.) 8 Bolivian X35CM biliary drain PROCEDURE : 1. Cholangiogram through existing catheter. 2. Biliary stent change. 3. Conscious sedation with continuous EKG and oximetry monitoring. 4. Fluoroscopic guided bile duct forceps biopsy The risks, benefits and alternatives to the procedure were explained and verbal and written consent w as obtained. The site was prepped in sterile fashion. Full sterile technique was used, including ca p, mask, sterile gloves and gown and a large sterile sheet. Hand hygiene and 2% chlorhexidine and/or betadine/alcohol prep was utilized per protocol for cutaneous antisepsis. The skin and subcutaneous tissues were infiltrated with local anesthetic solution. Under fluoroscopic guidance, a stiff angled Glidewire was manipulated through the patient's existing biliary drainage catheter and into the duodenum to maintain good stable access. The catheter was bambi [place] intact. A 7 Bolivian vascular sheath was inserted and manipulated into the duodenum. A second Reynolds guidewire was positioned well out into the distal duodenum. The sheath was removed and then replaced over the Glidewire leaving the Reynolds wire in as a safety wire. Tube cholangiography was then perform ed with digital imaging in multiple projections. 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 A forcep biopsy catheter was introduced and 3 separate samplings were obtained from the region of the mass. The specimens were submitted in formalin for pathologic evaluation. The sheath and Glidewire were removed and a new 8 Bolivian internal/external biliary drainage catheter was reintroduced over the Reynolds wire. The catheter was positioned with retention loop in the duodenum and sideholes extending up into the right intrahepatic ducts. The catheter was secured with silk sut ure and connected to gravity drainage. Conscious sedation was performed with the prescribed dosages and duration as above in the presence of an independent trained radiology nurse to assist in the monitoring of the patient. EKG and oximetry remained stable throughout the procedure. The patient tolerated the procedure well and there were n o complications. The patient was sent to post anesthesia recovery in stable condition. CONCLUSION: Uncomplicated tube cholangiography and biliary biopsy with internal/external drainage catheter exchan ge as described in detail above.. Bertram Chaudhari MD on December 11, 2017 at 15:39 Board Certified Radiologist. This report was verified electronically.
[2017-12-11] MEDS: DONEPEZIL HCL 5 MG TAB PO SCH (20:48)
[2017-12-12] VITALS (7 sets, daily range): BP systolic 125–186; BP diastolic 68–84; PULSE 76–99; RESP 18; TEMP 97.2–98.5; O2SAT 93–98
[2017-12-12] MEDS: SODIUM CHLOR 0.9% 1000 ML INJ 1,000 ML IV SCH (01:39)
[2017-12-12] MEDS: MORPHINE SULFATE 2 MG/ML INJ IV PUSH PRN (06:33)
[2017-12-12 07:19] LABS: HEMATOCRIT 34.8 % (35.0-46.0); HEMOGLOBIN 11.7 GM/DL (11.6-15.3); MEAN CELL VOLUME 88.3 FL (80.0-100.0); MEAN CORPUSCULAR HEMOGLOBIN 29.6 PG (27.0-34.0); MEAN CORPUSCULAR HGB CONC 33.5 % (32.0-36.0); MEAN PLATELET VOLUME 9.7 FL (7.0-11.0); PLATELET COUNT 245 TH/MM3 (150-450); RED BLOOD COUNT 3.94 MIL/MM3 (4.00-5.30); RED CELL DISTRIBUTION WIDTH 17.2 % (11.6-17.2); WHITE BLOOD COUNT 7.4 TH/MM3 (4.0-11.0)
[2017-12-12 07:36] LABS: ALBUMIN 2.7 GM/DL (3.4-5.0); AST (GOT) 88 U/L (15-37); BICARBONATE 27.8 MEQ/L (21.0-32.0); BLOOD UREA NITROGEN 7 MG/DL (7-18); CALCIUM 9.6 MG/DL (8.5-10.1); CHLORIDE 101 MEQ/L (98-107); CREATININE 0.54 MG/DL (0.50-1.00); GLOMERULAR FILTRATION RATE 129 ML/MIN (>89); GLUCOSE,RANDOM 176 MG/DL (74-106); SODIUM (NA) 136 MEQ/L (136-145)
[2017-12-12 07:40] LABS: ALKALINE PHOSPHATASE 838 U/L (45-117); ALT (GPT) 237 U/L (10-53); TOTAL BILIRUBIN ADULT 3.1 MG/DL (0.2-1.0); TOTAL PROTEIN 7.4 GM/DL (6.4-8.2)
[2017-12-12] MEDS: INSULIN ASPART SUPPLEMENTAL SCALE SQ SCH ×4 (08:00→21:00)
[2017-12-12] MEDS: FAMOTIDINE 20 MG/2 ML VIAL IV PUSH SCH ×2 (08:13→20:50)
[2017-12-12] MEDS ORDERED: POTASSIUM CHLORIDE 25 MEQ EFFERVESCENT TAB PO ONE (10:00)
--- NOTE | 2017-12-12 14:31 | HHI.PR ---
Subjective Remarks Follow-up for common bile duct obstruction and pancreatic mass Patient has no complaints. She said her pain has improved. Patient is tolerating oral intake. She remains afebrile. No other complaints. Patient's nurse Rogelio at the bedside during the interview. Objective Vitals Vital Signs Date Time Temp Pulse Resp B/P (MAP) Pulse Ox O2 Delivery O2 Flow Rate FiO2 12/12/17 13:07 98.5 76 18 125/74 (91) 98 12/12/17 08:30 98.3 82 18 145/68 (93) 93 12/12/17 07:19 96 21 12/12/17 05:26 97.2 99 18 156/76 (102) 97 12/12/17 00:44 97.4 87 18 167/76 (106) 97 12/11/17 21:17 98.0 88 18 155/74 (101) 95 12/11/17 17:25 98 Nasal Cannula 2.00 12/11/17 17:00 97.4 70 20 172/75 (107) 98 12/11/17 15:30 63 20 146/65 (92) 98 12/11/17 15:00 62 20 140/64 (89) 97 12/11/17 14:48 64 20 140/64 (89) 97 12/11/17 14:35 97.6 69 20 126/65 (85) 97 12/11/17 14:30 97.6 71 16 126/65 (85) 97 I/O 12/11/17 12/11/17 12/11/17 12/12/17 12/12/17 12/12/17 07:00 15:00 23:00 07:00 15:00 23:00 Output Total 40 ml 350 ml Balance -40 ml -350 ml Output Drainage Total 40 ml 350 ml # Voids 10 4 Result Diagram: 12/12/17 0550 12/12/17 0550 Objective Remarks GENERAL: thin female in NAD CARDIOVASCULAR: Regular rate and rhythm without murmurs, gallops, or rubs. RESPIRATORY: Breath sounds equal bilaterally. No accessory muscle use. GASTROINTESTINAL: Abdomen soft, no TTP in RUQ, nondistended. biliary drainage in place. Negative for any peritoneal signs. Medications and IVs Current Medications Donepezil HCl (Aricept) 5 mg HS PO Last administered on 12/11/17at 20:48; Start 12/09/17 at 21:00 Clonidine (Catapres) 0.1 mg ONCE ONCE PO Last administered on 12/09/17at 01:32 ; Start 12/09/17 at 01:30; Stop 12/09/17 at 01:31; Status DC Famotidine (Pepcid Inj) 10 mg Q12H IV PUSH Last administered on 12/11/17at 08:11 ; Start 12/09/17 at 09:00; Stop 12/11/17 at 14:53; Status DC Sodium Chloride 1,000 ml @ 100 mls/hr Q10H IV Last administered on 12/12/17at 01:39; Start 12/09/17 at 03:00; Stop 12/12/17 at 09:36; Status DC Dextrose (D50w (Vial) Inj) 50 ml UNSCH PRN IV PUSH HYPOGLYCEMIA-SEE COMMENTS; Start 12/09/17 at 02:30 Glucagon (Glucagon Inj) 1 mg UNSCH PRN OTHER HYPOGLYCEMIA-SEE COMMENTS; Start 12/09/17 at 02:30 Insulin Aspart (NovoLOG SUPPLEMENTAL SCALE) 1 ACHS SLIDING SCALE SQ ; Start at 08:00 Morphine Sulfate (Morphine Inj) 1 mg Q3H PRN IV PUSH Pain > 3 Last administered on 12/12/17at 06:33; Start 12/09/17 at 02:30 Ondansetron HCl (Zofran Inj) 4 mg Q6HR PRN IV PUSH NAUSEA OR VOMITING Last administered on 12/10/17at 20:13; Start 12/09/17 at 02:30 Gadodiamide (Omniscan Pf Inj) 9 ml STK-MED ONCE IVCONTRAST Last administered on 12/09/17at 15:50; Start 12/09/17 at 15:50; Stop 12/09/17 at 15:51; Status DC Amlodipine Besylate (Norvasc) 5 mg DAILY PO Last administered on 12/11/17at 08: 11; Start 12/10/17 at 12:00; Stop 12/11/17 at 08:22; Status DC Fentanyl Citrate (fentaNYL INJ) 100 mcg STK-MED ONCE .ROUTE ; Start 12/10/17 at 12:52; Stop 12/10/17 at 12:53; Status DC Levofloxacin/ Dextrose 100 ml @ As Directed STK-MED ONCE IV ; Start 12/10/17 at 13:38; Stop 12/10/17 at 13:39; Status DC Iohexol (Omnipaque 350 Inj) 20 ml STK-MED ONCE OTHER Last administered on at 14:09; Start 12/10/17 at 14:09; Stop 12/10/17 at 14:10; Status DC Ondansetron HCl (*ZOFRAN INJ PERIprocedural ONLY) 4 mg STK-MED ONCE .ROUTE Last administered on 12/10/17at 14:23; Start 12/10/17 at 14:23; Stop 12/10/17 at 14:24; Status DC Miscellaneous Information ALL NURSING DEPARTME... UNSCH PRN .XX SEE LABEL COMMENTS; Start 12/10/17 at 14:45; Stop 12/11/17 at 14:44; Status DC Enalaprilat (*VASOTEC INJ PERIprocedural Use ONLY) 1.25 mg STK-MED ONCE .ROUTE Last administered on 12/10/17at 15:00; Start 12/10/17 at 15:00; Stop 12/10/17 at 15:01; Status DC Enalaprilat (Vasotec Inj) 2.5 mg Q6H PRN IV PUSH SBP>180 or DBP>100; Start at 16:00 Clonidine (Catapres) 0.1 mg Q8HR PRN PO SBP>180 or DBP>100 Last administered on 12/10/17at 16:15; Start 12/10/17 at 16:00 Potassium Bicarb/ Potassium Chloride (K-Lyte Cl Eff) 50 meq ONCE ONCE PO Last administered on 12/11/17at 08:56; Start 12/11/17 at 08:30; Stop 12/11/17 at 08:42; Status DC Amlodipine Besylate (Norvasc) 10 mg DAILY PO Last administered on 12/12/17at 08: 13; Start 12/11/17 at 09:00 Fentanyl Citrate (fentaNYL INJ) 100 mcg STK-MED ONCE .ROUTE Last administered on 12/11/17at 13:01; Start 12/11/17 at 13:01; Stop 12/11/17 at 13:02; Status DC Midazolam HCl (Versed Inj) 2 mg STK-MED ONCE .ROUTE Last administered on at 13:01; Start 12/11/17 at 13:01; Stop 12/11/17 at 13:02; Status DC Levofloxacin/ Dextrose 100 ml @ As Directed STK-MED ONCE IV Last administered on 12/11/17at 13:56; Start 12/11/17 at 13:56; Stop 12/11/17 at 13:57; Status DC Midazolam HCl (Versed Inj) 2 mg STK-MED ONCE .ROUTE Last administered on at 14:02; Start 12/11/17 at 14:02; Stop 12/11/17 at 14:03; Status DC Fentanyl Citrate (fentaNYL INJ) 100 mcg STK-MED ONCE .ROUTE Last administered on 12/11/17at 14:07; Start 12/11/17 at 14:07; Stop 12/11/17 at 14:08; Status DC Iohexol (Omnipaque 350 Inj) 15 ml STK-MED ONCE OTHER Last administered on at 14:00; Start 12/11/17 at 14:00; Stop 12/11/17 at 14:30; Status DC Famotidine (Pepcid Inj) 20 mg Q12H IV PUSH Last administered on 12/12/17at 08:13 ; Start 12/11/17 at 21:00 Potassium Bicarb/ Potassium Chloride (K-Lyte Cl Eff) 50 meq ONCE ONCE PO Last administered on 12/12/17at 09:12; Start 12/12/17 at 10:00; Stop 12/12/17 at 10:01; Status DC A/P Problem List: (1) Biliary obstruction ICD Code: K83.1 - Obstruction of bile duct (2) Type 2 diabetes mellitus ICD Code: E11.9 - Type 2 diabetes mellitus without complications Status: Chronic (3) Hypertension ICD Code: I10 - Essential (primary) hypertension (4) Neuropathy ICD Code: G62.9 - Polyneuropathy, unspecified (5) Diabetic leg ulcer ICD Code: E11.622 - Type 2 diabetes mellitus with other skin ulcer; L97.909 - Non-pressure chronic ulcer of unspecified part of unspecified lower leg with unspecified severity Assessment and Plan Ms. Petty is an 87 year-old female with a history of diet-controlled DM, hypertension, neuropathy, and chronic left leg diabetic ulcers who presented to [facility] in [place] on 12/07/17 for evaluation for 3 weeks of diffuse abdominal pain with nausea, poor appetite and unintentional 10 pound weight loss in a 3 week period. Had reported 1 melanotic stool that occurred 3 weeks ago with subsequent white-appearing stools. CT of the abdomen showed diffuse colonic wall thickening with mild infiltration of the surrounding fat concerning for pancolitis and also intrahepatic biliary ductal dilation with innumerable cystic lesions involving the body and the tail of the pancreas Biliary obstruction s/p ERCP sphincterectomy was attempted 12/08/[address] 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 Lawler consulted and following. -Status post biliary drain placement by IR on 12/10 and cholangiogram done on . -Discussed case with MELANY Rosalind Sandy she stated that Dr. Lawler wants patient to wait in the hospital for the biopsy results due to concern for cancer. He also wants oncologist and palliative care consult. Will place consult. Hypertension -Better control. Continue with amlodipine to 10 mg p.o. daily. Continue with Vasotec and clonidine as needed. Type 2 Diabetes Mellitus - Accu-Cheks before meals and at bedtime with low-dose NovoLog sliding scale coverage - PRN Hypoglycemia protocol - Monitor trends and blood glucose readings and adjust treatments as indicated Neuropathy -Pending confirmation for patient's Neurontin dosage. Diabetic leg ulcers - Consult wound care nurse DVT prophylaxis SCDs/TEDs right lower extremity only, contraindicated due to left lower extremity wounds - chemoprophylaxis when cleared by GI Discharge Planning Per GI recommend for patient to stay in hospital pending biospy results due to concerns for cancer. Lanny Ledezma MD Dec 12, 2017 14:31
--- NOTE | 2017-12-12 14:35 | PD.WCN.NOT ---
Wound Consult Description: Received consult from Niurka POWER for wound management of Left lower ext. diabetic ulcers x 2 Communicated with: RN Aakash lauri and Doctor Lanny Ledezma Recommendation: 1.Please cleanse wounds to L lower extremity with wound cleanser or normal saline and pat dry. 2. Please cover wounds to LLE with Optifoam gentle border dressing and change every 3 days or as needed if saturated or dislodged. Additional Information: Patient seen on for evaluation of wound management of L lower extremity diabetic ulcers x 2. Removed bordered gauze in place to reveal wounds to L lower extremity. Medial L ankle wound presents with 100% red granulation tissue. Wound margins are even and well defined with some maceration from 2 to 9 o'clock . Wound has an oval shape. Wound drainage is scant and sero- sanguinous without odor. Periwound is unremarkable. Wound measures 5.6cm x 2.1cm x ~0.1cm. L medial lower leg wound measures 1cm x 0.5cm x ~0.1cm. Wound bed presents with ~80% pink tissue, and ~20% yellow tissue. Wound drainage is scant and sero- sanguinous with out odor. Wound margins are poorly defined. Periwound is unremarkable. L lateral lower leg wound presents with 100% red granulated tissue. Wound measures 2cm x0.6cm x~0.1cm. Wound drainage is scant, sero-sanguinous without odor. Wound margins are even and well defined with some maceration between 4 and 7 o'clock. Periwound is unremarkable. Cleansed all wounds to LLE with normal saline and patted dry. Applied Optifoam gentle border 6x6 over medial L lower leg wounds and covered wound to lateral lower leg with Optifoam gentle 4x4. Heels were floated with pillow. While patient was sitting in recliner. Amena Barrios [facility] Dec 12, 2017 14:35
--- NOTE | 2017-12-12 14:42 | HHI.GIFU ---
Subjective Remarks Pt OOB to chair. has some RUQ tenderness intermittently at site of her drain. (Lu Sandy) Objective Vitals I&O Vital Signs Date Time Temp Pulse Resp B/P (MAP) Pulse Ox O2 Delivery O2 Flow Rate FiO2 12/12/17 13:07 98.5 76 18 125/74 (91) 98 12/12/17 08:30 98.3 82 18 145/68 (93) 93 12/12/17 07:19 96 21 12/12/17 05:26 97.2 99 18 156/76 (102) 97 12/12/17 00:44 97.4 87 18 167/76 (106) 97 12/11/17 21:17 98.0 88 18 155/74 (101) 95 12/11/17 17:25 98 Nasal Cannula 2.00 12/11/17 17:00 97.4 70 20 172/75 (107) 98 12/11/17 15:30 63 20 146/65 (92) 98 12/11/17 15:00 62 20 140/64 (89) 97 12/11/17 14:48 64 20 140/64 (89) 97 12/11/17 14:35 97.6 69 20 126/65 (85) 97 I/O 12/11/17 12/11/17 12/11/17 12/12/17 12/12/17 12/12/17 07:00 15:00 23:00 07:00 15:00 23:00 Output Total 40 ml 350 ml Balance -40 ml -350 ml Output Drainage Total 40 ml 350 ml # Voids 10 4 Laboratory Laboratory Tests Test 12/12/17 05:50 White Blood Count 7.4 Red Blood Count 3.94 Hemoglobin 11.7 Hematocrit 34.8 Mean Corpuscular Volume 88.3 Mean Corpuscular Hemoglobin 29.6 Mean Corpuscular Hemoglobin Concent 33.5 Red Cell Distribution Width 17.2 Platelet Count 245 Mean Platelet Volume 9.7 Blood Urea Nitrogen 7 Creatinine 0.54 Random Glucose 176 Total Protein 7.4 Albumin 2.7 Calcium Level 9.6 Alkaline Phosphatase 838 Aspartate Amino Transf (AST/SGOT) 88 Alanine Aminotransferase (ALT/SGPT) 237 Total Bilirubin 3.1 Sodium Level 136 Potassium Level 3.1 Chloride Level 101 Carbon Dioxide Level 27.8 Anion Gap 7 Estimat Glomerular Filtration Rate 129 Imaging Last Impressions Catheter Change 12/11/17 0000 Signed Impressions: Service Date/Time: Monday, December 11, 2017 14:34 - CONCLUSION: Uncomplicated tube cholangiography and biliary biopsy with internal/external drainage catheter exchange as described in detail above.. Bertram Chaudhari MD Bile Duct Drainage 12/10/17 0000 Signed Impressions: Service Date/Time: Sunday, December 10, 2017 14:38 - CONCLUSION: Uncomplicated fluoroscopic guided percutaneous biliary drainage as described in detail above. After adequate decompression of the biliary tree, the patient can return for dedicated cholangiography and forcep biopsy tomorrow. Bertram Chaudhari MD Cholangiopancreatography MRI 12/09/17 0000 Signed Impressions: Service Date/Time: Saturday, December 09, 2017 13:46 - CONCLUSION: 1. There is dilatation of the common bile duct measuring at 1.3 cm. There is narrowing of the distal common bile duct suspicious for a stricture. There is some nonspecific increased soft tissue in the head of the pancreas. This is suspicious for a pancreatic mass. Recommend ERCP for further evaluation. 2. There is diffuse dilatation of the main pancreatic duct with numerous cystic type lesions throughout the entire pancreas. This is probably related to chronic pancreatitis. Fredy De La Fuente MD Physical Exam HEENT: Normocephalic atraumatic CHEST: CTA respirations shallow CARDIAC: RRR ABDOMEN: Soft, nondistended, nontender; no hepatosplenomegaly; bowel sounds are present in all four quadrants. RUQ drain reservoir with copious bilious drainage EXTREMITIES: No clubbing, cyanosis, or edema. SKIN: Normal; no rash; no jaundice. 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 (Lu Sandy [facility]) Assessment and Plan Plan ASSESSMENT An 87-year-old lady who has obstructive jaundice with common bile duct stricture and dilatation. The patient will need PTC. I discussed the case with Dr. Chaudhari and he is going to plan the procedure tomorrow with possible stent placement. The patient will need to follow on the tumor markers. She might need endoscopic ultrasound with biopsy for the pancreas if she feels that she wants to be aggressive in the treatment. Questionable colitis. The patient denies any diarrhea. No other symptoms. Will consider colonoscopy when the patient is more stable and after done with the issue of the pancreas. 12/12/17 Had biliary drain placement by IR 12/10, biliary drain exchange and biopsy distal bile duct mass 12/11/17, results pending. tbil is decreased today, pt does not appear jaundiced. Dr Lawler d/w radiology. med oncology consult pending PLAN - await CBD mass bx - monitor labs - await oncology consult - supportive care pt seen by myself and Dr Lawler and this note is on his behalf (Lu Sandy) Plan Patient was seen and examined, agree with above Notes, plan depends on the biopsy result, and what the patient would like to proceed with, I had a discussion with her and her granddaughter about the possibility of this being malignancy, and the need for a stent to be converted to an internal stent, if the biopsy came negative, we will consider endoscopic ultrasound for further biopsying (Kwasi Lawler MD) Lu Sandy Dec 12, 2017 14:42 Kwasi Lawler MD Dec 13, 2017 10:43
[2017-12-12] MEDS: traMADol HCL 50 MG TAB PO PRN (16:57)
[2017-12-12] MEDS ORDERED: LACTULOSE SYRUP 20 GM/30 ML CUP PO ONE (19:30)
[2017-12-12] MEDS ORDERED: DIATRIZOATE MEGLUM/DIATRIZOATE SOD 9 ML CUP PO ONE (20:15)
[2017-12-12] MEDS: DONEPEZIL HCL 5 MG TAB PO SCH (20:51)
[2017-12-12] MEDS: cloNIDine HCL 0.1 MG TAB PO PRN (21:03)
[2017-12-12] MEDS ORDERED: IOHEXOL 350 MG/ML 10 ML VIAL (for RAD DIAG) IVCONTRAST ONE (22:35)
--- NOTE | 2017-12-12 22:50 | RADRPT ---
EXAM DATE/TIME: 12/12/2017 22:22 [facility] COMPARISON: MRCP W & W/O CONTRAST, December 09, 2017, 13:46. INDICATIONS : Evaluate for metastatic disease. IV CONTRAST: 100 cc Omnipaque 350 (iohexol) IV ; Cumulative dose for multiple exams. ORAL CONTRAST: Partial prescribed oral contrast ingested. RADIATION DOSE: 6.22 CTDIvol (mGy) ; Combined studies - Thorax/Abdomen/Pelvis MEDICAL HISTORY : Hypertension. Dementia. SURGICAL HISTORY : Hysterectomy. ENCOUNTER: Initial ACUITY: 1 day PAIN SCALE: 5/10 LOCATION: Bilateral abdomen TECHNIQUE: Volumetric scanning of the abdomen and pelvis was performed. Using automated exposure control and ad justment of the mA and/or kV according to patient size, radiation dose was kept as low as reasonably achievable to obtain optimal diagnostic quality images. DICOM format image data is available electro nically for review and comparison. FINDINGS: Right basilar atelectasis is present. There is elevation of the right hemidiaphragm. The liver and sp shane are normal in size and no focal defects are identified. Internal/external biliary stent is in pl [place] without ductal dilatation. There is severe cystic change of the entire pancreas as seen on the MR I no solid pancreatic tissue present except for a small volume in the uncinate process. Tail of the p ancreas and splenic hilum is a more focal area of solid and cystic components mucinous cystic neoplas m is not excluded. Examination of the pelvis demonstrates no evidence of free fluid or pelvic mass. No abnormally enlarg ed inguinal or retroperitoneal lymph nodes are present. The bladder is unremarkable. There is diverti culosis without evidence of diverticulitis. A pessary is present. CONCLUSION: 1. Severe cystic change throughout the entire pancreas, mucinous cystic neoplasm is not excluded part icularly in tail where it extends into the splenic hilum. No hepatic lesions are identified Ken Miller MD on December 12, 2017 at 22:41 Board Certified Radiologist. This report was verified electronically.
--- NOTE | 2017-12-12 22:57 | RADRPT ---
EXAM DATE/TIME: 12/12/2017 22:22 [facility] COMPARISON: No previous studies available for comparison. INDICATIONS : Evaluate for metastatic disease. IV CONTRAST: 100 cc Omnipaque 350 (iohexol) IV ; Cumulative dose for multiple exams. RADIATION DOSE: 6.22 CTDIvol (mGy) ; Combined studies - Thorax/Abdomen/Pelvis MEDICAL HISTORY : Hypertension. Dementia. SURGICAL HISTORY : Hysterectomy. ENCOUNTER: Initial ACUITY: 1 day PAIN SCALE: 5/10 LOCATION: Bilateral chest TECHNIQUE: Volumetric scanning of the chest was performed. Using automated exposure control and adjustment of t he mA and/or kV according to patient size, radiation dose was kept as low as reasonably achievable to obtain optimal diagnostic quality images. DICOM format image data is available electronically for review and comparison. Follow-up recommendations for detected pulmonary nodules are based at a minimum on nodule size and pa tient risk factors according to Fleischner Society Guidelines. FINDINGS: No pulmonary nodules are identified. There is subsegmental atelectasis in the both bases. No pleural effusions are identified. Examination of the mediastinum demonstrates no abnormally enlarged lymph nodes by CT criteria. No axi llary or hilar abnormalities are identified. Coronary artery calcifications are present. There is a 4.2 cm mass in the left lobe of the thyroid gland with calcification central process. This likely reflects goiter though neoplasm is not entirely excluded. This would be accessible to percuta neous biopsy.There is substernal extension. There is enlargement of the right lobe of the thyroid gla nd as well CONCLUSION: 1. No evidence of metastatic disease. 2. Right basilar atelectasis 3. 4.2 cm mass in the left lobe of thyroid which may reflect goiter or less likely neoplasm. Ken Miller MD on December 12, 2017 at 22:52 Board Certified Radiologist. This report was verified electronically.
[2017-12-13] VITALS (7 sets, daily range): BP systolic 118–145; BP diastolic 60–66; PULSE 69–99; RESP 18–20; TEMP 97.1–98.4; O2SAT 96–98
[2017-12-13] MEDS: INSULIN ASPART SUPPLEMENTAL SCALE SQ SCH ×4 (08:00→21:06)
[2017-12-13] MEDS: FAMOTIDINE 20 MG/2 ML VIAL IV PUSH SCH (08:47)
--- NOTE | 2017-12-13 09:33 | MB ---
cc: Tess Altamirano MD DATE OF CONSULT: 12/12/2017 CHIEF COMPLAINT: Suspicious pancreatic lesion. HISTORY OF PRESENT ILLNESS: Ms. Petty is an 87-year-old lady with a history of diabetes mellitus type 2, hypertension, neuropathy, chronic left leg diabetic ulcers, who was admitted to the hospital with a several week history of diffuse abdominal pain accompanied nausea, decreased appetite, unintentional weight loss and white stools. CT scan of the abdomen showed diffuse colonic wall thickening, with mild infiltration of surrounding fat, concerning for pancolitis and also intrahepatic biliary ductal dilation with enumerable cystic lesions involving the body and tail of the pancreas, possibly reflecting malignancy or multiple pseudocysts. Admission bilirubin was 7.2, AST 217, ALT 338 and alkaline phosphatase was 847. Imaging was suspicious for pancreatic neoplasm, partially obstructing the biliary ductal system. ERCP was attempted on 12/08/[address] Lawler, but he was unable to get through the obstruction and now plans a percutaneous cholangiogram. MRCP with dilation of the common bile duct measuring up to 1.3 centimeters, with narrowing of the distal duct, suspicious for stricture, increased soft tissue of the head of the pancreas, questionable pancreatic mass, multiple cysts throughout the pancreas. She is status post percutaneous drain placement by Interventional Radiology. LABORATORY DATA: From today, show sodium 136, potassium 3.1, creatinine 0.54, glucose 176, total bilirubin is 3.1, AST 88, ALT 237, alkaline phosphatase 838,000, albumin 2.7, total protein is 7.4. White blood cell count 7.4, hemoglobin 11.7 and a platelet count of 245,000. She had a biopsy performed, which showed acutely and chronically inflamed fibrous tissue, fibrin debris, attached fragments of benign ductal epithelium. Lung disease not identified. This biopsy was of the common bile duct stricture. PAST MEDICAL HISTORY: 1. Type 2 diabetes mellitus. 2. Hypertension. 3. Mild dementia. 4. Neuropathy. 5. Chronic lower extremity diabetic ulcers. PAST SURGICAL HISTORY: 1. Hysterectomy. 2. Knee surgery. HOME MEDICATIONS: Gabapentin, donepezil, [place]. ALLERGIES: NO KNOWN DRUG ALLERGIES. FAMILY HISTORY: No known family history of malignancy. SOCIAL HISTORY: Denies tobacco, alcohol, illegal drug use. PHYSICAL EXAMINATION: GENERAL: Thin, elderly lady, in no distress. SKIN: With no rashes. HEAD: Atraumatic, normocephalic. EYES: No scleral icterus. No injection or drainage. ENT: Clear oropharynx. NECK: Supple, with no palpable lymphadenopathy. RESPIRATORY: Clear to auscultation bilaterally. ABDOMEN: Soft, nontender, nondistended, bowel sounds present. NEUROLOGIC: Grossly nonfocal. PSYCHIATRIC: Appropriate mood and affect. ASSESSMENT AND PLAN: 1. Pancreatic lesions suspicious for an underlying malignancy. We will order CT scan of the chest, abdomen and pelvis. She has had a previous biopsy of the bile duct stricture, which has returned with no evidence of malignancy. We will also order a CA 19-9. Discussed treatment of pancreatic cancer with the patient and discussed that if it was found to be locally advanced best treatment would be to move forward with surgery. Discussed that the surgery is quite intense and difficult surgery, that given her age and other comorbid medical conditions, that she may not be able to survive. Also discussed treatment of metastatic pancreatic cancer with chemotherapy. The patient reports that she would like to obtain a true diagnosis and biopsy and once we have the diagnosis, we will sit down and have an honest discussion of the risks versus benefits of each available treatment option to give the patient the treatment option to be able to make the best decision for her. 2. Hyperbilirubinemia, status post placement of percutaneous drain by the GI team. MD EDOUARD Cummins/SCOTT , 07:38 PM , 08:12 PM [place]
--- NOTE | 2017-12-13 10:01 | PD.ONC.PN ---
Subjective Subjective Remarks Patient seen at bedside this morning. Resting comfortably in bed in no distress. She reports that she ate dinner last night and did not experience any GI symptoms. She has mild pain around insertion site of PTC. CT scan with 4.2 cm mass in thyroid could represent goiter vs less likely malignancy. CT abdomen/pelvis with severe cystic change throughout the pancreas. Objective Data Date Time Temp Pulse Resp B/P (MAP) Pulse Ox O2 Delivery O2 Flow Rate FiO2 12/13/17 08:06 97.8 70 18 135/63 (87) 97 12/13/17 05:11 98.2 74 18 140/65 (90) 96 12/13/17 00:24 97.6 73 18 140/65 (90) 98 12/12/17 20:56 97.7 85 18 186/84 (118) 96 12/12/17 18:00 16 12/12/17 16:42 98.4 85 18 145/83 (103) 98 12/12/17 13:07 98.5 76 18 125/74 (91) 98 Result Diagram: 12/12/17 0550 12/12/17 1528 Laboratory Results Laboratory Tests Test 12/12/17 15:28 12/13/17 07:07 Potassium Level 3.7 MEQ/L Magnesium Level 2.0 MG/DL Administered Medications Medications (Trade) Dose Ordered Sig/Jesús Route PRN Reason Start Time Stop Time Status Last Admin Dose Admin Donepezil HCl (Aricept) 5 mg HS PO 12/09/17 21:00 12/12/17 20:51 Ondansetron HCl (Zofran Inj) 4 mg Q6HR PRN IV PUSH NAUSEA OR VOMITING 12/09/17 02:30 12/10/17 20:13 Clonidine (Catapres) 0.1 mg Q8HR PRN PO SBP>180 or DBP>100 12/10/17 16:00 12/12/17 21:03 Amlodipine Besylate (Norvasc) 10 mg DAILY PO 12/11/17 09:00 12/13/17 08:47 Famotidine (Pepcid Inj) 20 mg Q12H IV PUSH 12/11/17 21:00 12/13/17 08:47 Tramadol HCl (Ultram) 50 mg Q4H PRN PO pain 3-10 12/12/17 14:45 12/12/17 16:57 Objective Remarks GENERAL: thin, elderly lady in no distress. SKIN: Warm and dry. HEAD: Normocephalic. NECK: Supple, trachea midline. No JVD or lymphadenopathy. LYMPHATIC: No adenopathy. RESPIRATORY: No accessory muscle use. GASTROINTESTINAL: percutaenous drain in place EXTREMITIES: No cyanosis, or edema. MUSCULOSKELETAL: Adequate muscle tone. NEUROLOGICAL: No obvious focal deficit. Awake, alert, and oriented x3. PSYCHIATRIC: Appropriate mood and affect; insight and judgment normal. Assessment/Plan Assessment 1. Pancreatic lesion suspicious for malignancy: no evidence of metastatic disease. CA 19-9 pending. S/p biopsy of CBD which is unrevealing. Will need to have repeat biopsy under the direction of the GI or IR services. Will ask for input of GI team on best way to achieve biopsy and diagnosis. Discussed treatment of pancreatic cancer with patient and friend at bedside. Discussed that this pancreatic lesion is suspicous for malignancy, however we do not have a pathologic diagnosis. Discussed that the ideal treatment for locally advanced pancreatic is surgical resection. Discussed that given advanced age, comorbid medical conditions she would not be an ideal candidate for surgery. She voiced understanding and reports that she would like a diagnosis. Once the diagnosis is obtained will discuss treatment options. 2. Elevated bili: due to bile duct stricture. S/p placement of drain with improvement in bili. 3. Thyroid mass/goiter seen on CT chest: will order TSH, free T4 and thyroid ultrasound. Inpatient oncology team will continue to follow. Tess Altamirano MD Dec 13, 2017 10:01
--- NOTE | 2017-12-13 11:20 | HHI.PR ---
Subjective Remarks Follow-up for pancreatic mass and common bile duct dilatation Patient continues to complain about 6 out of 10 pain. She stated this is the same. Denies nausea or vomiting. She has no other complaints. Objective Vitals Vital Signs Date Time Temp Pulse Resp B/P (MAP) Pulse Ox O2 Delivery O2 Flow Rate FiO2 12/13/17 08:06 97.8 70 18 135/63 (87) 97 12/13/17 05:11 98.2 74 18 140/65 (90) 96 12/13/17 00:24 97.6 73 18 140/65 (90) 98 12/12/17 20:56 97.7 85 18 186/84 (118) 96 12/12/17 18:00 16 12/12/17 16:42 98.4 85 18 145/83 (103) 98 12/12/17 13:07 98.5 76 18 125/74 (91) 98 I/O 12/12/17 12/12/17 12/12/17 12/13/17 12/13/17 12/13/17 07:00 15:00 23:00 07:00 15:00 23:00 Output Total 500 ml Balance -500 ml Output Drainage Total 500 ml # Voids 4 1 1 Result Diagram: 12/12/17 0550 12/12/17 1528 Imaging Last Impressions Chest CT 12/12/17 0000 Signed Impressions: Service Date/Time: Tuesday, December 12, 2017 22:22 - CONCLUSION: 1. No evidence of metastatic disease. 2. Right basilar atelectasis 3. 4.2 cm mass in the left lobe of thyroid which may reflect goiter or less likely neoplasm. Ken Miller MD Abdomen/Pelvis CT 12/12/17 0000 Signed Impressions: Service Date/Time: Tuesday, December 12, 2017 22:22 - CONCLUSION: 1. Severe cystic change throughout the entire pancreas, mucinous cystic neoplasm is not excluded particularly in tail where it extends into the splenic hilum. No hepatic lesions are identified Ken Miller MD Catheter Change 12/11/17 0000 Signed Impressions: Service Date/Time: Monday, December 11, 2017 14:34 - CONCLUSION: Uncomplicated tube cholangiography and biliary biopsy with internal/external drainage catheter exchange as described in detail above.. Bertram Chaudhari MD Bile Duct Drainage 12/10/17 0000 Signed Impressions: Service Date/Time: Sunday, December 10, 2017 14:38 - CONCLUSION: Uncomplicated fluoroscopic guided percutaneous biliary drainage as described in detail above. After adequate decompression of the biliary tree, the patient can return for dedicated cholangiography and forcep biopsy tomorrow. Bertram Chaudhari MD Cholangiopancreatography MRI 12/09/17 0000 Signed Impressions: Service Date/Time: Saturday, December 09, 2017 13:46 - CONCLUSION: 1. There is dilatation of the common bile duct measuring at 1.3 cm. There is narrowing of the distal common bile duct suspicious for a stricture. There is some nonspecific increased soft tissue in the head of the pancreas. This is suspicious for a pancreatic mass. Recommend ERCP for further evaluation. 2. There is diffuse dilatation of the main pancreatic duct with numerous cystic type lesions throughout the entire pancreas. This is probably related to chronic pancreatitis. Fredy De La Fuente MD Objective Remarks GENERAL: thin female in NAD CARDIOVASCULAR: Regular rate and rhythm without murmurs, gallops, or rubs. RESPIRATORY: Breath sounds equal bilaterally. No accessory muscle use. GASTROINTESTINAL: Abdomen soft, no TTP in RUQ, nondistended. biliary drainage in place. Negative for any peritoneal signs. Medications and IVs Current Medications Donepezil HCl (Aricept) 5 mg HS PO Last administered on 12/12/17at 20:51; Start 12/09/17 at 21:00 Clonidine (Catapres) 0.1 mg ONCE ONCE PO Last administered on 12/09/17at 01:32 ; Start 12/09/17 at 01:30; Stop 12/09/17 at 01:31; Status DC Famotidine (Pepcid Inj) 10 mg Q12H IV PUSH Last administered on 12/11/17at 08:11 ; Start 12/09/17 at 09:00; Stop 12/11/17 at 14:53; Status DC Sodium Chloride 1,000 ml @ 100 mls/hr Q10H IV Last administered on 12/12/17at 01:39; Start 12/09/17 at 03:00; Stop 12/12/17 at 09:36; Status DC Dextrose (D50w (Vial) Inj) 50 ml UNSCH PRN IV PUSH HYPOGLYCEMIA-SEE COMMENTS; Start 12/09/17 at 02:30 Glucagon (Glucagon Inj) 1 mg UNSCH PRN OTHER HYPOGLYCEMIA-SEE COMMENTS; Start 12/09/17 at 02:30 Insulin Aspart (NovoLOG SUPPLEMENTAL SCALE) 1 ACHS SLIDING SCALE SQ ; Start at 08:00 Morphine Sulfate (Morphine Inj) 1 mg Q3H PRN IV PUSH Pain > 3 Last administered on 12/12/17at 06:33; Start 12/09/17 at 02:30; Stop 12/12/17 at 14:32 ; Status DC Ondansetron HCl (Zofran Inj) 4 mg Q6HR PRN IV PUSH NAUSEA OR VOMITING Last administered on 12/10/17at 20:13; Start 12/09/17 at 02:30 Gadodiamide (Omniscan Pf Inj) 9 ml STK-MED ONCE IVCONTRAST Last administered on 12/09/17at 15:50; Start 12/09/17 at 15:50; Stop 12/09/17 at 15:51; Status DC Amlodipine Besylate (Norvasc) 5 mg DAILY PO Last administered on 12/11/17at 08: 11; Start 12/10/17 at 12:00; Stop 12/11/17 at 08:22; Status DC Fentanyl Citrate (fentaNYL INJ) 100 mcg STK-MED ONCE .ROUTE ; Start 12/10/17 at 12:52; Stop 12/10/17 at 12:53; Status DC Levofloxacin/ Dextrose 100 ml @ As Directed STK-MED ONCE IV ; Start 12/10/17 at 13:38; Stop 12/10/17 at 13:39; Status DC Iohexol (Omnipaque 350 Inj) 20 ml STK-MED ONCE OTHER Last administered on at 14:09; Start 12/10/17 at 14:09; Stop 12/10/17 at 14:10; Status DC Ondansetron HCl (*ZOFRAN INJ PERIprocedural ONLY) 4 mg STK-MED ONCE .ROUTE Last administered on 12/10/17at 14:23; Start 12/10/17 at 14:23; Stop 12/10/17 at 14:24; Status DC Miscellaneous Information ALL NURSING DEPARTME... UNSCH PRN .XX SEE LABEL COMMENTS; Start 12/10/17 at 14:45; Stop 12/11/17 at 14:44; Status DC Enalaprilat (*VASOTEC INJ PERIprocedural Use ONLY) 1.25 mg STK-MED ONCE .ROUTE Last administered on 12/10/17at 15:00; Start 12/10/17 at 15:00; Stop 12/10/17 at 15:01; Status DC Enalaprilat (Vasotec Inj) 2.5 mg Q6H PRN IV PUSH SBP>180 or DBP>100; Start at 16:00 Clonidine (Catapres) 0.1 mg Q8HR PRN PO SBP>180 or DBP>100 Last administered on 12/12/17at 21:03; Start 12/10/17 at 16:00 Potassium Bicarb/ Potassium Chloride (K-Lyte Cl Eff) 50 meq ONCE ONCE PO Last administered on 12/11/17at 08:56; Start 12/11/17 at 08:30; Stop 12/11/17 at 08:42; Status DC Amlodipine Besylate (Norvasc) 10 mg DAILY PO Last administered on 12/13/17at 08: 47; Start 12/11/17 at 09:00 Fentanyl Citrate (fentaNYL INJ) 100 mcg STK-MED ONCE .ROUTE Last administered on 12/11/17 13:01; Start 12/11/17 at 13:01; Stop 12/11/17 at 13:02; Status DC Midazolam HCl (Versed Inj) 2 mg STK-MED ONCE .ROUTE Last administered on at 13:01; Start 12/11/17 at 13:01; Stop 12/11/17 at 13:02; Status DC Levofloxacin/ Dextrose 100 ml @ As Directed STK-MED ONCE IV Last administered on 12/11/17 13:56; Start 12/11/17 at 13:56; Stop 12/11/17 at 13:57; Status DC Midazolam HCl (Versed Inj) 2 mg STK-MED ONCE .ROUTE Last administered on at 14:02; Start 12/11/17 at 14:02; Stop 12/11/17 at 14:03; Status DC Fentanyl Citrate (fentaNYL INJ) 100 mcg STK-MED ONCE .ROUTE Last administered on 12/11/17at 14:07; Start 12/11/17 at 14:07; Stop 12/11/17 at 14:08; Status DC Iohexol (Omnipaque 350 Inj) 15 ml STK-MED ONCE OTHER Last administered on at 14:00; Start 12/11/17 at 14:00; Stop 12/11/17 at 14:30; Status DC Famotidine (Pepcid Inj) 20 mg Q12H IV PUSH Last administered on 12/13/17at 08:47 ; Start 12/11/17 at 21:00 Potassium Bicarb/ Potassium Chloride (K-Lyte Cl Eff) 50 meq ONCE ONCE PO Last administered on 12/12/17at 09:12; Start 12/12/17 at 10:00; Stop 12/12/17 at 10:01; Status DC Tramadol HCl (Ultram) 50 mg Q4H PRN PO pain 3-10 Last administered on at 16:57; Start 12/12/17 at 14:45 Lactulose (Lactulose Liq) 30 ml NOW ONCE PO Last administered on 12/12/17at 20: 50; Start 12/12/17 at 19:30; Stop 12/12/17 at 19:50; Status DC Diatrizoate Meglum/ Diatrizoate Sod ( Gastroview Liq) 18 ml ONCE ONCE PO Last administered on 12/12/17at 20:49; Start 12/12/17 at 20:15; Stop 12/12/17 at 20:16; Status DC Iohexol (Omnipaque 350 Inj) 100 ml STK-MED ONCE IVCONTRAST Last administered on 12/12/17at 22:35; Start 12/12/17 at 22:35; Stop 12/12/17 at 22:36; Status DC A/P Problem List: (1) Biliary obstruction ICD Code: K83.1 - Obstruction of bile duct (2) Type 2 diabetes mellitus ICD Code: E11.9 - Type 2 diabetes mellitus without complications Status: Chronic (3) Hypertension ICD Code: I10 - Essential (primary) hypertension (4) Neuropathy ICD Code: G62.9 - Polyneuropathy, unspecified (5) Diabetic leg ulcer ICD Code: E11.622 - Type 2 diabetes mellitus with other skin ulcer; L97.909 - Non-pressure chronic ulcer of unspecified part of unspecified lower leg with unspecified severity Assessment and Plan Ms. Petty is an 87 year-old female with a history of diet-controlled DM, hypertension, neuropathy, and chronic left leg diabetic ulcers who presented to [facility] in [place] on 12/07/17 for evaluation for 3 weeks of diffuse abdominal pain with nausea, poor appetite and unintentional 10 pound weight loss in a 3 week period. Had reported 1 melanotic stool that occurred 3 weeks ago with subsequent white-appearing stools. CT of the abdomen showed diffuse colonic wall thickening with mild infiltration of the surrounding fat concerning for pancolitis and also intrahepatic biliary ductal dilation with innumerable cystic lesions involving the body and the tail of the pancreas Biliary obstruction s/p ERCP sphincterectomy was attempted 12/08/[address] 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 Lawler consulted and following. -Status post biliary drain placement by IR on 12/10 and cholangiogram done on . -Oncologist consulted Dr. Altamirano. CT scan of the chest abdomen and pelvis showed severe cystic changes throughout the entire pancreas and 4.2 cm left thyroid mass. Common bile duct cultures negative for any malignancy. Per Dr. Altamirano patient will need another biopsy but GI needs to determine what type of biopsy. Discussed case with Rosalind Sandy and stated that she will speak to Dr. Lawler in regards to this. Left thyroid mass -Thyroid ultrasound placed by Dr. Altamirano. TSH and free T4 ordered. Hypertension -controlled. Continue with amlodipine to 10 mg p.o. daily. Continue with Vasotec and clonidine as needed. Type 2 Diabetes Mellitus - Accu-Cheks before meals and at bedtime with low-dose NovoLog sliding scale coverage - PRN Hypoglycemia protocol - Monitor trends and blood glucose readings and adjust treatments as indicated Neuropathy -Pending confirmation for patient's Neurontin dosage. Diabetic leg ulcers - Consult wound care nurse DVT prophylaxis SCDs/TEDs right lower extremity only, contraindicated due to left lower extremity wounds - chemoprophylaxis when cleared by GI Discharge Planning patient will need re biospy to be determined by GI. Lanny Ledezma MD Dec 13, 2017 11:20
--- NOTE | 2017-12-13 14:26 | HHI.GIFU ---
Subjective Remarks Pt OOB to chair eating lunch. d/w her doing EUS and she wants to talk to her family first. c/o of mild RUQ pain. (Lu Sandy) Objective Vitals I&O Vital Signs Date Time Temp Pulse Resp B/P (MAP) Pulse Ox O2 Delivery O2 Flow Rate FiO2 12/13/17 11:44 98.3 69 18 145/66 (92) 97 12/13/17 08:06 97.8 70 18 135/63 (87) 97 12/13/17 05:11 98.2 74 18 140/65 (90) 96 12/13/17 00:24 97.6 73 18 140/65 (90) 98 12/12/17 20:56 97.7 85 18 186/84 (118) 96 12/12/17 18:00 16 12/12/17 16:42 98.4 85 18 145/83 (103) 98 I/O 12/12/17 12/12/17 12/12/17 12/13/17 12/13/17 12/13/17 06:59 14:59 22:59 06:59 14:59 22:59 Output Total 500 ml Balance -500 ml Output Drainage Total 500 ml # Voids 4 1 1 Laboratory Laboratory Tests Test 12/12/17 15:28 12/13/17 07:07 Potassium Level 3.7 Magnesium Level 2.0 CA 19-9 Antigen 320.6 Imaging Last Impressions Chest CT 12/12/17 0000 Signed Impressions: Service Date/Time: Tuesday, December 12, 2017 22:22 - CONCLUSION: 1. No evidence of metastatic disease. 2. Right basilar atelectasis 3. 4.2 cm mass in the left lobe of thyroid which may reflect goiter or less likely neoplasm. Ken Miller MD Abdomen/Pelvis CT 12/12/17 0000 Signed Impressions: Service Date/Time: Tuesday, December 12, 2017 22:22 - CONCLUSION: 1. Severe cystic change throughout the entire pancreas, mucinous cystic neoplasm is not excluded particularly in tail where it extends into the splenic hilum. No hepatic lesions are identified Ken Miller MD Catheter Change 12/11/17 0000 Signed Impressions: Service Date/Time: Monday, December 11, 2017 14:34 - CONCLUSION: Uncomplicated tube cholangiography and biliary biopsy with internal/external drainage catheter exchange as described in detail above.. Bertram Chaudhari MD Bile Duct Drainage 12/10/17 0000 Signed Impressions: Service Date/Time: Sunday, December 10, 2017 14:38 - CONCLUSION: Uncomplicated fluoroscopic guided percutaneous biliary drainage as described in detail above. After adequate decompression of the biliary tree, the patient can return for dedicated cholangiography and forcep biopsy tomorrow. Bertram Chaudhari MD Cholangiopancreatography MRI 12/09/17 0000 Signed Impressions: Service Date/Time: Saturday, December 09, 2017 13:46 - CONCLUSION: 1. There is dilatation of the common bile duct measuring at 1.3 cm. There is narrowing of the distal common bile duct suspicious for a stricture. There is some nonspecific increased soft tissue in the head of the pancreas. This is suspicious for a pancreatic mass. Recommend ERCP for further evaluation. 2. There is diffuse dilatation of the main pancreatic duct with numerous cystic type lesions throughout the entire pancreas. This is probably related to chronic pancreatitis. Fredy De La Fuente MD Physical Exam HEENT: Normocephalic atraumatic CHEST: CTA respirations shallow CARDIAC: RRR ABDOMEN: Soft, nondistended, mild RUQ TTP; no hepatosplenomegaly; bowel sounds are present in all four quadrants. RUQ drain reservoir with copious bilious drainage EXTREMITIES: No clubbing, cyanosis, or edema. SKIN: Normal; no rash; no jaundice. 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 (Lu Sandy [facility]) Assessment and Plan Plan ASSESSMENT An 87-year-old lady who has obstructive jaundice with common bile duct stricture and dilatation. The patient will need PTC. I discussed the case with Dr. Chaudhari and he is going to plan the procedure tomorrow with possible stent placement. The patient will need to follow on the tumor markers. She might need endoscopic ultrasound with biopsy for the pancreas if she feels that she wants to be aggressive in the treatment. Questionable colitis. The patient denies any diarrhea. No other symptoms. Will consider colonoscopy when the patient is more stable and after done with the issue of the pancreas. 12/12/17 Had biliary drain placement by IR 12/10, biliary drain exchange and biopsy distal bile duct mass 12/11/17, results pending. tbil is decreased today, pt does not appear jaundiced. Dr Lawler d/w radiology. med oncology consult pending 12/13/17 bx was negative, will try EUS if pt is amenable, she wants to d/w her family first. CA 19-[address] showed severe cystic change pancreas, mucinous cystic neoplasm not excluded. oncology now following. PLAN - EUS tomorrow if pt agrees - will make NPO after MN - obtain consent - monitor labs - supportive care pt seen by myself and Dr Lawler and this note is on his behalf (Lu Sandy) Plan Patient was seen and examined, agree with above-noted, I had a discussion with her about different options and she would like to proceed to try to get definitive diagnosis since her biopsy was negative she will need to have endoscopic ultrasound and she is agreeable to have that tomorrow, her CA 199 is elevated which is most likely consistent with malignancy, Dr. Contreras will perform the procedure tomorrow (Kwasi Lawler MD) Lu Sandy Dec 13, 2017 14:26 Kwasi Lawler MD Dec 13, 2017 17:58
[2017-12-13] MEDS: traMADol HCL 50 MG TAB PO PRN (17:20)
[2017-12-13] MEDS ORDERED: METOPROLOL TARTRATE 25 MG TAB PO PRN (20:00)
[2017-12-13] MEDS ORDERED: LACTATED RINGER'S 1000 ML IV PRN (20:00)
[2017-12-13] MEDS ORDERED: CHLORHEXIDINE GLUCONATE 2 % 1 PACK (2 CLOTHS) TOPICAL PRN (20:00)
[2017-12-13] MEDS ORDERED: INSULIN HUMAN REGULAR 1,000 UNITS/10 ML VIAL SQ PRN (20:00)
[2017-12-13] MEDS ORDERED: POVIDONE IODINE 5% (ANTISEPSIS KIT) 4 APPLICATIONS EACH NARE PRN (20:00)
[2017-12-13] MEDS ORDERED: SODIUM CHLORID 0.9% 500 ML IV PRN (20:00)
[2017-12-13] MEDS: FAMOTIDINE 20 MG TAB PO SCH (21:05)
[2017-12-13] MEDS: DONEPEZIL HCL 5 MG TAB PO SCH (21:06)
[2017-12-14] VITALS (7 sets, daily range): BP systolic 111–186; BP diastolic 60–88; PULSE 68–98; RESP 18; TEMP 97.1–98.8; O2SAT 94–98
[2017-12-14] MEDS: INSULIN ASPART SUPPLEMENTAL SCALE SQ SCH ×4 (08:00→20:38)
--- NOTE | 2017-12-14 08:06 | HHI.PR ---
Subjective Remarks in no acute distress. denies pain. awaiting biopsy today. Objective Vitals Vital Signs Date Time Temp Pulse Resp B/P (MAP) Pulse Ox O2 Delivery O2 Flow Rate FiO2 12/14/17 04:00 97.1 90 18 126/60 (82) 94 12/14/17 00:00 97.2 77 18 111/65 (80) 98 12/13/17 20:00 97.1 99 18 118/60 (79) 97 12/13/17 17:51 97 21 12/13/17 16:24 98.4 78 20 136/60 (85) 97 12/13/17 11:44 98.3 69 18 145/66 (92) 97 12/13/17 08:06 97.8 70 18 135/63 (87) 97 I/O 12/13/17 12/13/17 12/13/17 12/14/17 12/14/17 12/14/17 07:00 15:00 23:00 07:00 15:00 23:00 Output Total 40 ml Balance -40 ml Output Drainage Total 40 ml # Voids 1 2 4 Result Diagram: 12/12/17 0550 12/12/17 1528 Imaging Last Impressions Chest CT 12/12/17 0000 Signed Impressions: Service Date/Time: Tuesday, December 12, 2017 22:22 - CONCLUSION: 1. No evidence of metastatic disease. 2. Right basilar atelectasis 3. 4.2 cm mass in the left lobe of thyroid which may reflect goiter or less likely neoplasm. Ken Miller MD Abdomen/Pelvis CT 12/12/17 0000 Signed Impressions: Service Date/Time: Tuesday, December 12, 2017 22:22 - CONCLUSION: 1. Severe cystic change throughout the entire pancreas, mucinous cystic neoplasm is not excluded particularly in tail where it extends into the splenic hilum. No hepatic lesions are identified Ken Miller MD Catheter Change 12/11/17 0000 Signed Impressions: Service Date/Time: Monday, December 11, 2017 14:34 - CONCLUSION: Uncomplicated tube cholangiography and biliary biopsy with internal/external drainage catheter exchange as described in detail above.. Bertram Chaudhari MD Bile Duct Drainage 12/10/17 0000 Signed Impressions: Service Date/Time: Sunday, December 10, 2017 14:38 - CONCLUSION: Uncomplicated fluoroscopic guided percutaneous biliary drainage as described in detail above. After adequate decompression of the biliary tree, the patient can return for dedicated cholangiography and forcep biopsy tomorrow. Bertram Chaudhari MD Cholangiopancreatography MRI 12/09/17 0000 Signed Impressions: Service Date/Time: Saturday, December 09, 2017 13:46 - CONCLUSION: 1. There is dilatation of the common bile duct measuring at 1.3 cm. There is narrowing of the distal common bile duct suspicious for a stricture. There is some nonspecific increased soft tissue in the head of the pancreas. This is suspicious for a pancreatic mass. Recommend ERCP for further evaluation. 2. There is diffuse dilatation of the main pancreatic duct with numerous cystic type lesions throughout the entire pancreas. This is probably related to chronic pancreatitis. Fredy De La Fuente MD Objective Remarks GENERAL: elderly female, in no apparent distress. CARDIOVASCULAR: Regular rate and regular rhythm without murmurs, gallops, or rubs. RESPIRATORY: Clear to auscultation. Breath sounds equal bilaterally. No wheezes , rales, or rhonchi. GASTROINTESTINAL: Abdomen soft, non-tender, nondistended. Normal, active bowel sounds MUSCULOSKELETAL: Extremities without clubbing, cyanosis, or edema. NEURO: Alert & Oriented x4 to person, place, time, situation. Moves all ext x4 Procedures ERCP/ biliary drain placement. Medications and IVs Inpatient Medications Amlodipine Besylate (Norvasc) 10 mg DAILY PO Last administered on 12/13/17at 08: 47; Start 12/11/17 at 09:00 Chlorhexidine Gluconate (Chlorhexidine 2% Cloth) 3 pack RELAY MOTORMAN PRN TOPICAL SEE LABEL COMMENTS; Start 12/13/17 at 20:00; Stop 12/16/17 at 19:59 Clonidine (Catapres) 0.1 mg Q8HR PRN PO SBP>180 or DBP>100 Last administered on 12/12/17at 21:03; Start 12/10/17 at 16:00 Dextrose (D50w (Vial) Inj) 50 ml UNSCH PRN IV PUSH HYPOGLYCEMIA-SEE COMMENTS; Start 12/09/17 at 02:30 Diatrizoate Meglum/ Diatrizoate Sod ( Gastroview Liq) 18 ml ONCE ONCE PO Last administered on 12/12/17at 20:49; Start 12/12/17 at 20:15; Stop 12/12/17 at 20:16; Status DC Donepezil HCl (Aricept) 5 mg HS PO Last administered on 12/13/17at 21:06; Start 12/09/17 at 21:00 Enalaprilat (Vasotec Inj) 2.5 mg Q6H PRN IV PUSH SBP>180 or DBP>100; Start at 16:00 Famotidine (Pepcid Inj) 20 mg Q12H IV PUSH Last administered on 12/13/17at 08:47 ; Start 12/11/17 at 21:00; Stop 12/13/17 at 14:32; Status DC Famotidine (Pepcid) 20 mg BID PO Last administered on 12/13/17at 21:05; Start at 21:00 Glucagon (Glucagon Inj) 1 mg UNSCH PRN OTHER HYPOGLYCEMIA-SEE COMMENTS; Start 12/09/17 at 02:30 Insulin Aspart (NovoLOG SUPPLEMENTAL SCALE) 1 ACHS SLIDING SCALE SQ Last administered on 12/13/17at 18:47; Start 12/09/17 at 08:00 Insulin Human Regular (NovoLIN R INJ) See Protocol Table ... RELAY MOTORMAN PRN SQ SEE PROTOCOL TABLE; Start 12/13/17 at 20:00; Stop 12/16/17 at 19:59 Lactated Ringer's 1,000 ml @ 30 mls/hr Q24H PRN IV SEE LABEL COMMENTS; Start at 20:00; Stop 12/16/17 at 19:59 Lactulose (Lactulose Liq) 30 ml NOW ONCE PO Last administered on 12/12/17at 20: 50; Start 12/12/17 at 19:30; Stop 12/12/17 at 19:50; Status DC Metoprolol Tartrate (Lopressor) 25 mg RELAY MOTORMAN PRN PO SEE LABEL COMMENTS; Start 12/13/17 at 20:00; Stop 12/16/17 at 19:59 Miscellaneous Information ALL NURSING DEPARTME... UNSCH PRN .XX SEE LABEL COMMENTS; Start 12/10/17 at 14:45; Stop 12/11/17 at 14:44; Status DC Morphine Sulfate (Morphine Inj) 1 mg Q3H PRN IV PUSH Pain > 3 Last administered on 12/12/17at 06:33; Start 12/09/17 at 02:30; Stop 12/12/17 at 14:32 ; Status DC Ondansetron HCl (Zofran Inj) 4 mg Q6HR PRN IV PUSH NAUSEA OR VOMITING Last administered on 12/10/17at 20:13; Start 12/09/17 at 02:30 Potassium Bicarb/ Potassium Chloride (K-Lyte Cl Eff) 50 meq ONCE ONCE PO Last administered on 12/12/17at 09:12; Start 12/12/17 at 10:00; Stop 12/12/17 at 10:01; Status DC Povidone Iodine (Betadine 5% Antisepsis Kit) 1 applic RELAY MOTORMAN PRN EACH NARE SEE LABEL COMMENTS; Start 12/13/17 at 20:00; Stop 12/16/17 at 19:59 Sodium Chloride 500 ml @ 30 mls/hr [id number] PRN IV SEE LABEL COMMENTS; Start at 20:00; Stop 12/16/17 at 19:59 Tramadol HCl (Ultram) 50 mg Q4H PRN PO pain 3-10 Last administered on at 17:20; Start 12/12/17 at 14:45 A/P Problem List: (1) Biliary obstruction ICD Code: K83.1 - Obstruction of bile duct (2) Type 2 diabetes mellitus ICD Code: E11.9 - Type 2 diabetes mellitus without complications Status: Chronic (3) Hypertension ICD Code: I10 - Essential (primary) hypertension (4) Neuropathy ICD Code: G62.9 - Polyneuropathy, unspecified (5) Diabetic leg ulcer ICD Code: E11.622 - Type 2 diabetes mellitus with other skin ulcer; L97.909 - Non-pressure chronic ulcer of unspecified part of unspecified lower leg with unspecified severity Assessment and Plan A/P Biliary obstruction s/p ERCP sphincterectomy was attempted 12/08/[address] 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 -Oncologist consulted Dr. Altamirano. CT scan of the chest abdomen and pelvis showed severe cystic changes throughout the entire pancreas and 4.2 cm left thyroid mass. Common bile duct pathology negative for any malignancy. plan for endoscopic ultrasound today. GI and oncology following. Left thyroid mass -Thyroid ultrasound placed by Dr. Altamirano. TSH and free T4 ordered. Hypertension -controlled. Continue with amlodipine to 10 mg p.o. daily. Continue with Vasotec and clonidine as needed. Type 2 Diabetes Mellitus - Accu-Cheks before meals and at bedtime with low-dose NovoLog sliding scale coverage - PRN Hypoglycemia protocol - Monitor trends and blood glucose readings and adjust treatments as indicated Neuropathy -Pending confirmation for patient's Neurontin dosage. Diabetic leg ulcers - Consulted wound care nurse DVT prophylaxis SCDs/TEDs right lower extremity only, contraindicated due to left lower extremity wounds - chemoprophylaxis when cleared by GI Discharge Planning work-up in progress. dc planning when work-up is completed and cleared by GI and Oncology. Yen Stern MD Dec 14, 2017 08:06
[2017-12-14 08:22] LABS: AUTOMATED NEUTROPHIL # 3.6 TH/MM3 (1.8-7.7); BASOPHIL % 0.5 % (0.0-2.0); EOSINOPHIL # 0.1 TH/MM3 (0-0.4); EOSINOPHIL % 1.2 % (0.0-4.0); HEMATOCRIT 33.6 % (35.0-46.0); HEMOGLOBIN 11.2 GM/DL (11.6-15.3); LYMPHOCYTE # 1.7 TH/MM3 (1.0-4.8); MEAN CELL VOLUME 88.9 FL (80.0-100.0); MEAN CORPUSCULAR HEMOGLOBIN 29.6 PG (27.0-34.0); MEAN CORPUSCULAR HGB CONC 33.3 % (32.0-36.0); MEAN PLATELET VOLUME 9.2 FL (7.0-11.0); MONO % 10.3 % (0.0-8.0); MONOCYTE # 0.6 TH/MM3 (0-0.9); PLATELET COUNT 237 TH/MM3 (150-450); RED BLOOD COUNT 3.78 MIL/MM3 (4.00-5.30); RED CELL DISTRIBUTION WIDTH 17.4 % (11.6-17.2)
[2017-12-14 08:37] LABS: ALBUMIN 2.5 GM/DL (3.4-5.0); ALT (GPT) 135 U/L (10-53); AST (GOT) 39 U/L (15-37); BICARBONATE 25.7 MEQ/L (21.0-32.0); BLOOD UREA NITROGEN 8 MG/DL (7-18); CALCIUM 9.1 MG/DL (8.5-10.1); CHLORIDE 106 MEQ/L (98-107); CREATININE 0.49 MG/DL (0.50-1.00); GLOMERULAR FILTRATION RATE 145 ML/MIN (>89); GLUCOSE,RANDOM 120 MG/DL (74-106); SODIUM (NA) 139 MEQ/L (136-145)
[2017-12-14 08:47] LABS: ALKALINE PHOSPHATASE 612 U/L (45-117); FREE T4 1.59 NG/DL (0.76-1.46); TOTAL BILIRUBIN ADULT 2.1 MG/DL (0.2-1.0); TOTAL PROTEIN 6.9 GM/DL (6.4-8.2)
[2017-12-14] MEDS: FAMOTIDINE 20 MG TAB PO SCH ×2 (09:22→20:38)
--- NOTE | 2017-12-14 11:36 | PD.PROCEDR ---
GI Procedure PROCEDURE PERFORMED Endoscopic ultrasound with FNA INDICATION FOR PROCEDURE Biliary compression with abnormal findings on CT suggestive of a pancreatic mass PROCEDURE: The procedure, risks and benefits were discussed with Ms. Petty and informed consent was obtained. Anesthesia sedated her with Diprivan. She was placed in the left lateral decubitus position. Endoscopic ultrasound: The Pentax videoscope was introduced through the oropharynx and advanced to the second portion of the duodenum. FINDINGS: The pancreas appeared to be diffusely abnormal from head to tail showing a very dilated pancreatic duct at [address] to the toenail with multiple cysts noted throughout the pancreatic body tail and head there was some soft tissue noted in the pancreatic head of unclear significance isoechoic this was biopsied with the FNA no clear lymph nodes were noted The bile duct was decompressed with a noted stent ESTIMATED BLOOD LOSS: Minimal SPECIMENS REMOVED: Fine-needle aspiration of the pancreatic head COMPLICATIONS: None IMPRESSION: Diffusely abnormal pancreas with a cystic appearance and a dilated pancreatic duct Abnormal pancreatic head of unclear significance PLAN: Await biopsies Continue with current supportive care Monitor labs Bo Contreras MD Dec 14, 2017 11:36
[2017-12-14] MEDS ORDERED: LIDOCAINE HCL 1% PF 5 ML SYRINGE OTHER ONE (12:00)
[2017-12-14] MEDS ORDERED: PHENYLEPH/NS 1000 MCG/10 ML SYR IV ONE (12:00)
[2017-12-14] MEDS ORDERED: GLYCOPYRROLATE 1 MG/5 ML SYRINGE IV PUSH ONE (12:00)
[2017-12-14] MEDS ORDERED: PROPOFOL 200 MG/20 ML AMP IV ONE (12:00)
[2017-12-14] MEDS: ONDANSETRON HCL 4 MG/2 ML VIAL IV PUSH PRN (12:33)
[2017-12-14] MEDS: traMADol HCL 50 MG TAB PO PRN (12:35)
[2017-12-14] MEDS: ACETAMINOPHEN/HYDROcodone 325 MG/5 MG TAB PO PRN ×2 (17:16→20:47)
[2017-12-14] MEDS: ENALAPRILAT 2.5 MG/2 ML VIAL IV PUSH PRN (17:24)
[2017-12-14] MEDS: DONEPEZIL HCL 5 MG TAB PO SCH (20:38)
[2017-12-15 00:10] VITALS: BP 125/76; PULSE 66; RESP 19; TEMP 97.6; O2SAT 97
[2017-12-15 05:15] VITALS: BP 120/80; PULSE 69; RESP 20; TEMP 98; O2SAT 96
[2017-12-15] MEDS: INSULIN ASPART SUPPLEMENTAL SCALE SQ SCH ×4 (08:00→21:37)
[2017-12-15 08:04] VITALS: BP 126/59; PULSE 72; RESP 16; TEMP 97.6; O2SAT 98
[2017-12-15] MEDS ORDERED: OXYC1CAP PO (08:09)
--- NOTE | 2017-12-15 08:09 | HHI.PR ---
Subjective Remarks in no acute distress. has some abdominal pain. no other complaints. Objective Vitals Vital Signs Date Time Temp Pulse Resp B/P (MAP) Pulse Ox O2 Delivery O2 Flow Rate FiO2 12/15/17 05:15 98.0 69 20 120/80 (93) 96 12/15/17 00:10 97.6 66 19 125/76 (92) 97 12/14/17 21:36 96 12/14/17 21:00 98.8 68 18 129/88 (102) 96 12/14/17 16:54 97.7 98 18 181/83 (115) 96 186/77 (113) 12/14/17 12:17 95 12/14/17 11:45 91 20 119/69 (86) 95 12/14/17 11:40 97.4 85 20 138/67 (90) 95 12/14/17 08:27 98.4 96 18 156/72 (100) 97 I/O 12/14/17 12/14/17 12/14/17 12/15/17 12/15/17 12/15/17 07:00 15:00 23:00 07:00 15:00 23:00 Intake Total 500 ml 1100 ml 550 ml Output Total 40 ml 200 ml 30 ml Balance -40 ml 500 ml 900 ml 520 ml Intake Oral 1100 ml 550 ml Other 500 ml Output Drainage Total 40 ml 200 ml 30 ml # Voids 4 2 3 1 # Bowel Movements 1 0 Result Diagram: 12/14/17 0730 12/14/17 0730 Imaging Last Impressions Chest CT 12/12/17 0000 Signed Impressions: Service Date/Time: Tuesday, December 12, 2017 22:22 - CONCLUSION: 1. No evidence of metastatic disease. 2. Right basilar atelectasis 3. 4.2 cm mass in the left lobe of thyroid which may reflect goiter or less likely neoplasm. Ken Miller MD Abdomen/Pelvis CT 12/12/17 0000 Signed Impressions: Service Date/Time: Tuesday, December 12, 2017 22:22 - CONCLUSION: 1. Severe cystic change throughout the entire pancreas, mucinous cystic neoplasm is not excluded particularly in tail where it extends into the splenic hilum. No hepatic lesions are identified Ken Miller MD Catheter Change 12/11/17 0000 Signed Impressions: Service Date/Time: Monday, December 11, 2017 14:34 - CONCLUSION: Uncomplicated tube cholangiography and biliary biopsy with internal/external drainage catheter exchange as described in detail above.. Bertram Chaudhari MD Bile Duct Drainage 12/10/17 0000 Signed Impressions: Service Date/Time: Sunday, December 10, 2017 14:38 - CONCLUSION: Uncomplicated fluoroscopic guided percutaneous biliary drainage as described in detail above. After adequate decompression of the biliary tree, the patient can return for dedicated cholangiography and forcep biopsy tomorrow. Bertram Chaudhari MD Cholangiopancreatography MRI 12/09/17 0000 Signed Impressions: Service Date/Time: Saturday, December 09, 2017 13:46 - CONCLUSION: 1. There is dilatation of the common bile duct measuring at 1.3 cm. There is narrowing of the distal common bile duct suspicious for a stricture. There is some nonspecific increased soft tissue in the head of the pancreas. This is suspicious for a pancreatic mass. Recommend ERCP for further evaluation. 2. There is diffuse dilatation of the main pancreatic duct with numerous cystic type lesions throughout the entire pancreas. This is probably related to chronic pancreatitis. Fredy De La Fuente MD Objective Remarks GENERAL: elderly female, in no apparent distress. CARDIOVASCULAR: Regular rate and regular rhythm without murmurs, gallops, or rubs. RESPIRATORY: Clear to auscultation. Breath sounds equal bilaterally. No wheezes , rales, or rhonchi. GASTROINTESTINAL: Abdomen soft,mild lower abdominal tenderness, nondistended. Normal, active bowel sounds MUSCULOSKELETAL: Extremities without clubbing, cyanosis, or edema. NEURO: Alert & Oriented x4 to person, place, time, situation. Moves all ext x4 Procedures ERCP/ biliary drain placement/ endoscopic ultrasound with FNA Medications and IVs Inpatient Medications Acetaminophen/ Hydrocodone Bitart ([place] 5-325 Mg) 1 tab Q4H PRN PO PAIN 1-10 Last administered on 12/14/17at 20:47; Start 12/14/17 at 16:30 Amlodipine Besylate (Norvasc) 10 mg DAILY PO Last administered on 12/14/17at 09: 22; Start 12/11/17 at 09:00 Chlorhexidine Gluconate (Chlorhexidine 2% Cloth) 3 pack PRODUCTION QUALITY ANALYST PRN TOPICAL SEE LABEL COMMENTS; Start 12/13/17 at 20:00; Stop 12/16/17 at 19:59 Clonidine (Catapres) 0.1 mg Q8HR PRN PO SBP>180 or DBP>100 Last administered on 12/12/17at 21:03; Start 12/10/17 at 16:00 Dextrose (D50w (Vial) Inj) 50 ml UNSCH PRN IV PUSH HYPOGLYCEMIA-SEE COMMENTS; Start 12/09/17 at 02:30 Diatrizoate Meglum/ Diatrizoate Sod ( Gastroview Liq) 18 ml ONCE ONCE PO Last administered on 12/12/17at 20:49; Start 12/12/17 at 20:15; Stop 12/12/17 at 20:16; Status DC Donepezil HCl (Aricept) 5 mg HS PO Last administered on 12/14/17at 20:38; Start 12/09/17 at 21:00 Enalaprilat (Vasotec Inj) 2.5 mg Q6H PRN IV PUSH SBP>180 or DBP>100 Last administered on 12/14/17at 17:24; Start 12/10/17 at 16:00 Famotidine (Pepcid Inj) 20 mg Q12H IV PUSH Last administered on 12/13/17at 08:47 ; Start 12/11/17 at 21:00; Stop 12/13/17 at 14:32; Status DC Famotidine (Pepcid) 20 mg BID PO Last administered on 12/14/17at 20:38; Start at 21:00 Glucagon (Glucagon Inj) 1 mg UNSCH PRN OTHER HYPOGLYCEMIA-SEE COMMENTS; Start 12/09/17 at 02:30 Insulin Aspart (NovoLOG SUPPLEMENTAL SCALE) 1 ACHS SLIDING SCALE SQ Last administered on 12/14/17at 12:33; Start 12/09/17 at 08:00 Insulin Human Regular (NovoLIN R INJ) See Protocol Table ... PRODUCTION QUALITY ANALYST PRN SQ SEE PROTOCOL TABLE; Start 12/13/17 at 20:00; Stop 12/16/17 at 19:59 Lactated Ringer's 1,000 ml @ 30 mls/hr Q24H PRN IV SEE LABEL COMMENTS; Start at 20:00; Stop 12/16/17 at 19:59 Lactulose (Lactulose Liq) 30 ml NOW ONCE PO Last administered on 12/12/17at 20: 50; Start 12/12/17 at 19:30; Stop 12/12/17 at 19:50; Status DC Metoprolol Tartrate (Lopressor) 25 mg PRODUCTION QUALITY ANALYST PRN PO SEE LABEL COMMENTS; Start 12/13/17 at 20:00; Stop 12/16/17 at 19:59 Miscellaneous Information ALL NURSING DEPARTME... UNSCH PRN .XX SEE LABEL COMMENTS; Start 12/10/17 at 14:45; Stop 12/11/17 at 14:44; Status DC Morphine Sulfate (Morphine Inj) 1 mg Q3H PRN IV PUSH Pain > 3 Last administered on 12/12/17at 06:33; Start 12/09/17 at 02:30; Stop 12/12/17 at 14:32 ; Status DC Ondansetron HCl (Zofran Inj) 4 mg Q6HR PRN IV PUSH NAUSEA OR VOMITING Last administered on 12/14/17at 12:33; Start 12/09/17 at 02:30 Potassium Bicarb/ Potassium Chloride (K-Lyte Cl Eff) 50 meq ONCE ONCE PO Last administered on 12/12/17at 09:12; Start 12/12/17 at 10:00; Stop 12/12/17 at 10:01; Status DC Povidone Iodine (Betadine 5% Antisepsis Kit) 1 applic PRODUCTION QUALITY ANALYST PRN EACH NARE SEE LABEL COMMENTS; Start 12/13/17 at 20:00; Stop 12/16/17 at 19:59 Sodium Chloride 500 ml @ 30 mls/hr [id number] PRN IV SEE LABEL COMMENTS; Start at 20:00; Stop 12/16/17 at 19:59 Tramadol HCl (Ultram) 50 mg Q4H PRN PO pain 3-10 Last administered on 12/14/17at 12:35; Start 12/12/17 at 14:45; Stop 12/14/17 at 16:24; Status DC A/P Problem List: (1) Biliary obstruction ICD Code: K83.1 - Obstruction of bile duct (2) Type 2 diabetes mellitus ICD Code: E11.9 - Type 2 diabetes mellitus without complications Status: Chronic (3) Hypertension ICD Code: I10 - Essential (primary) hypertension (4) Neuropathy ICD Code: G62.9 - Polyneuropathy, unspecified (5) Diabetic leg ulcer ICD Code: E11.622 - Type 2 diabetes mellitus with other skin ulcer; L97.909 - Non-pressure chronic ulcer of unspecified part of unspecified lower leg with unspecified severity Assessment and Plan A/P Biliary obstruction s/p ERCP sphincterectomy was attempted 12/08/[address] 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 -s/p endoscopic US with FNA with : Diffusely abnormal pancreas with a cystic appearance and a dilated pancreatic duct/Abnormal pancreatic head of unclear significance - CT scan of the chest abdomen and pelvis showed severe cystic changes throughout the entire pancreas and 4.2 cm left thyroid mass. Common bile duct pathology negative for any malignancy. GI and oncology following. Left thyroid mass -TSH WNL- f/u as outpatient. Hypertension -controlled. Continue with amlodipine to 10 mg p.o. daily. Continue with Vasotec and clonidine as needed. Type 2 Diabetes Mellitus - Accu-Cheks before meals and at bedtime with low-dose NovoLog sliding scale coverage - Monitor trends and blood glucose readings and adjust treatments as indicated Neuropathy -Pending confirmation for patient's Neurontin dosage. Diabetic leg ulcers - Consulted wound care nurse DVT prophylaxis SCDs/TEDs right lower extremity only, contraindicated due to left lower extremity wounds - chemoprophylaxis when cleared by GI Discharge Planning work-up in progress. dc planning when work-up is completed and cleared by GI and Oncology. Yen Stern MD Dec 15, 2017 08:09
[2017-12-15 08:35] LABS: HEMOGLOBIN 10.8 GM/DL (11.6-15.3); MEAN CELL VOLUME 89.4 FL (80.0-100.0); MEAN CORPUSCULAR HEMOGLOBIN 29.2 PG (27.0-34.0); MEAN CORPUSCULAR HGB CONC 32.7 % (32.0-36.0); MEAN PLATELET VOLUME 8.8 FL (7.0-11.0); PLATELET COUNT 242 TH/MM3 (150-450); RED BLOOD COUNT 3.69 MIL/MM3 (4.00-5.30); RED CELL DISTRIBUTION WIDTH 17.2 % (11.6-17.2); WHITE BLOOD COUNT 16.2 TH/MM3 (4.0-11.0)
[2017-12-15] MEDS: FAMOTIDINE 20 MG TAB PO SCH ×2 (08:46→21:22)
[2017-12-15] MEDS: ACETAMINOPHEN/HYDROcodone 325 MG/5 MG TAB PO PRN ×3 (08:53→21:38)
[2017-12-15 09:18] LABS: ALBUMIN 2.6 GM/DL (3.4-5.0); ALKALINE PHOSPHATASE 523 U/L (45-117); ALT (GPT) 112 U/L (10-53); AST (GOT) 32 U/L (15-37); BICARBONATE 26.5 MEQ/L (21.0-32.0); BLOOD UREA NITROGEN 10 MG/DL (7-18); CALCIUM 9.4 MG/DL (8.5-10.1); CHLORIDE 97 MEQ/L (98-107); CREATININE 0.57 MG/DL (0.50-1.00); GLOMERULAR FILTRATION RATE 121 ML/MIN (>89); GLUCOSE,RANDOM 166 MG/DL (74-106); SODIUM (NA) 135 MEQ/L (136-145); TOTAL BILIRUBIN ADULT 2.1 MG/DL (0.2-1.0)
[2017-12-15 12:14] VITALS: BP 140/65; PULSE 76; RESP 16; TEMP 97.4; O2SAT 97
--- NOTE | 2017-12-15 12:46 | HHI.GIFU ---
Subjective Remarks Pt resting in bed in NAD. Admits some mild upper abd pain. offers no other complaints. (Lu Sandy) Objective Vitals I&O Vital Signs Date Time Temp Pulse Resp B/P (MAP) Pulse Ox O2 Delivery O2 Flow Rate FiO2 12/15/17 12:14 97.4 76 16 140/65 (90) 97 12/15/17 08:04 97.6 72 16 126/59 (81) 98 12/15/17 05:15 98.0 69 20 120/80 (93) 96 12/15/17 00:10 97.6 66 19 125/76 (92) 97 12/14/17 21:36 96 12/14/17 21:00 98.8 68 18 129/88 (102) 96 12/14/17 16:54 97.7 98 18 181/83 (115) 96 186/77 (113) I/O 12/14/17 12/14/17 12/14/17 12/15/17 12/15/17 12/15/17 07:00 15:00 23:00 07:00 15:00 23:00 Intake Total 500 ml 1100 ml 550 ml Output Total 40 ml 200 ml 30 ml 275 ml Balance -40 ml 500 ml 900 ml 520 ml -275 ml Intake Oral 1100 ml 550 ml Other 500 ml Output Urine Total 275 ml Drainage Total 40 ml 200 ml 30 ml # Voids 4 2 3 1 1 # Bowel Movements 1 0 Laboratory Laboratory Tests Test 12/15/17 06:25 White Blood Count 16.2 Red Blood Count 3.69 Hemoglobin 10.8 Hematocrit 33.0 Mean Corpuscular Volume 89.4 Mean Corpuscular Hemoglobin 29.2 Mean Corpuscular Hemoglobin Concent 32.7 Red Cell Distribution Width 17.2 Platelet Count 242 Mean Platelet Volume 8.8 Blood Urea Nitrogen 10 Creatinine 0.57 Random Glucose 166 Total Protein 7.0 Albumin 2.6 Calcium Level 9.4 Alkaline Phosphatase 523 Aspartate Amino Transf (AST/SGOT) 32 Alanine Aminotransferase (ALT/SGPT) 112 Total Bilirubin 2.1 Sodium Level 135 Potassium Level 3.6 Chloride Level 97 Carbon Dioxide Level 26.5 Anion Gap 12 Estimat Glomerular Filtration Rate 121 Imaging Last Impressions Chest CT 12/12/17 0000 Signed Impressions: Service Date/Time: Tuesday, December 12, 2017 22:22 - CONCLUSION: 1. No evidence of metastatic disease. 2. Right basilar atelectasis 3. 4.2 cm mass in the left lobe of thyroid which may reflect goiter or less likely neoplasm. Ken Miller MD Abdomen/Pelvis CT 12/12/17 0000 Signed Impressions: Service Date/Time: Tuesday, December 12, 2017 22:22 - CONCLUSION: 1. Severe cystic change throughout the entire pancreas, mucinous cystic neoplasm is not excluded particularly in tail where it extends into the splenic hilum. No hepatic lesions are identified Ken Miller MD Catheter Change 12/11/17 0000 Signed Impressions: Service Date/Time: Monday, December 11, 2017 14:34 - CONCLUSION: Uncomplicated tube cholangiography and biliary biopsy with internal/external drainage catheter exchange as described in detail above.. Bertram Chaudhari MD Bile Duct Drainage 12/10/17 0000 Signed Impressions: Service Date/Time: Sunday, December 10, 2017 14:38 - CONCLUSION: Uncomplicated fluoroscopic guided percutaneous biliary drainage as described in detail above. After adequate decompression of the biliary tree, the patient can return for dedicated cholangiography and forcep biopsy tomorrow. Bertram Chaudhari MD Cholangiopancreatography MRI 12/09/17 0000 Signed Impressions: Service Date/Time: Saturday, December 09, 2017 13:46 - CONCLUSION: 1. There is dilatation of the common bile duct measuring at 1.3 cm. There is narrowing of the distal common bile duct suspicious for a stricture. There is some nonspecific increased soft tissue in the head of the pancreas. This is suspicious for a pancreatic mass. Recommend ERCP for further evaluation. 2. There is diffuse dilatation of the main pancreatic duct with numerous cystic type lesions throughout the entire pancreas. This is probably related to chronic pancreatitis. Fredy De La Fuente MD Physical Exam HEENT: Normocephalic atraumatic CHEST: CTA respirations shallow CARDIAC: RRR ABDOMEN: Soft, nondistended, mild RUQ TTP; no hepatosplenomegaly; bowel sounds are present in all four quadrants. RUQ drain reservoir with bilious drainage EXTREMITIES: No clubbing, cyanosis, or edema. SKIN: Normal; no rash; no jaundice. ACETYLENE PLANT OPERATOR: No focal deficits; alert and oriented times three. (Lu Sandy [facility]) Assessment and Plan Plan ASSESSMENT An 87-year-old lady who has obstructive jaundice with common bile duct stricture and dilatation. The patient will need PTC. I discussed the case with Dr. Chaudhari and he is going to plan the procedure tomorrow with possible stent placement. The patient will need to follow on the tumor markers. She might need endoscopic ultrasound with biopsy for the pancreas if she feels that she wants to be aggressive in the treatment. Questionable colitis. The patient denies any diarrhea. No other symptoms. Will consider colonoscopy when the patient is more stable and after done with the issue of the pancreas. 12/12/17 Had biliary drain placement by IR 12/10, biliary drain exchange and biopsy distal bile duct mass 12/11/17, results pending. tbil is decreased today, pt does not appear jaundiced. Dr Lawler d/w radiology. med oncology consult pending 12/13/17 bx was negative, will try EUS if pt is amenable, she wants to d/w her family first. CA 19-[address] showed severe cystic change pancreas, mucinous cystic neoplasm not excluded. oncology now following. 12/15/17 s/p EUS with FNA, foudn abnormal pancreas, cystic appearance, dilated pancreatic duct, abnormal pancreatic head. WBC up today, pt afebrile, no complaints. 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
[2017-12-15] MEDS ORDERED: PILL SPLITTER OTHER PRN (14:45)
[2017-12-15 16:15] VITALS: BP 129/94; PULSE 99; RESP 17; TEMP 97.5; O2SAT 94
[2017-12-15] MEDS: DONEPEZIL HCL 5 MG TAB PO SCH (21:23)
[2017-12-15 21:50] VITALS: BP 128/59; PULSE 79; RESP 19; TEMP 98; O2SAT 96
[2017-12-16 04:45] VITALS: BP 126/60; PULSE 67; RESP 20; TEMP 97.8; O2SAT 97
[2017-12-16 07:37] LABS: ALBUMIN 2.6 GM/DL (3.4-5.0); AST (GOT) 30 U/L (15-37); BICARBONATE 27.3 MEQ/L (21.0-32.0); BLOOD UREA NITROGEN 9 MG/DL (7-18); CALCIUM 9.7 MG/DL (8.5-10.1); CHLORIDE 100 MEQ/L (98-107); CREATININE 0.59 MG/DL (0.50-1.00); GLOMERULAR FILTRATION RATE 117 ML/MIN (>89); GLUCOSE,RANDOM 109 MG/DL (74-106); SODIUM (NA) 137 MEQ/L (136-145)
[2017-12-16 07:38] LABS: ALT (GPT) 91 U/L (10-53)
[2017-12-16 07:41] LABS: ALKALINE PHOSPHATASE 507 U/L (45-117); TOTAL PROTEIN 7.1 GM/DL (6.4-8.2)
[2017-12-16] MEDS: INSULIN ASPART SUPPLEMENTAL SCALE SQ SCH ×4 (08:00→22:34)
--- NOTE | 2017-12-16 08:04 | HHI.PR ---
Subjective Remarks in no acute distress. complaining of some pain to the left leg wound. has mild RUQ pain. no fever. d/w the RN at the bedside. Objective Vitals Vital Signs Date Time Temp Pulse Resp B/P (MAP) Pulse Ox O2 Delivery O2 Flow Rate FiO2 12/16/17 04:45 97.8 67 20 126/60 (82) 97 12/15/17 21:50 98.0 79 19 128/59 (82) 96 12/15/17 16:15 97.5 99 17 129/94 (106) 94 12/15/17 12:14 97.4 76 16 140/65 (90) 97 12/15/17 08:04 97.6 72 16 126/59 (81) 98 I/O 12/15/17 12/15/17 12/15/17 12/16/17 12/16/17 12/16/17 07:00 15:00 23:00 07:00 15:00 23:00 Intake Total 550 ml 550 ml 810 ml Output Total 30 ml 275 ml 750 ml 20 ml Balance 520 ml -275 ml 550 ml 60 ml -20 ml Intake Oral 550 ml 550 ml 810 ml Output Urine Total 275 ml 750 ml Drainage Total 30 ml 20 ml # Voids 1 2 2 1 # Bowel Movements 0 0 0 Result Diagram: 12/15/17 0625 12/16/17 0550 Imaging Last Impressions Chest CT 12/12/17 0000 Signed Impressions: Service Date/Time: Tuesday, December 12, 2017 22:22 - CONCLUSION: 1. No evidence of metastatic disease. 2. Right basilar atelectasis 3. 4.2 cm mass in the left lobe of thyroid which may reflect goiter or less likely neoplasm. Ken Miller MD Abdomen/Pelvis CT 12/12/17 0000 Signed Impressions: Service Date/Time: Tuesday, December 12, 2017 22:22 - CONCLUSION: 1. Severe cystic change throughout the entire pancreas, mucinous cystic neoplasm is not excluded particularly in tail where it extends into the splenic hilum. No hepatic lesions are identified Ken Miller MD Catheter Change 12/11/17 0000 Signed Impressions: Service Date/Time: Monday, December 11, 2017 14:34 - CONCLUSION: Uncomplicated tube cholangiography and biliary biopsy with internal/external drainage catheter exchange as described in detail above.. Bertram Chaudhari MD Bile Duct Drainage 12/10/17 0000 Signed Impressions: Service Date/Time: Sunday, December 10, 2017 14:38 - CONCLUSION: Uncomplicated fluoroscopic guided percutaneous biliary drainage as described in detail above. After adequate decompression of the biliary tree, the patient can return for dedicated cholangiography and forcep biopsy tomorrow. Bertram Chaudhari MD Cholangiopancreatography MRI 12/09/17 0000 Signed Impressions: Service Date/Time: Saturday, December 09, 2017 13:46 - CONCLUSION: 1. There is dilatation of the common bile duct measuring at 1.3 cm. There is narrowing of the distal common bile duct suspicious for a stricture. There is some nonspecific increased soft tissue in the head of the pancreas. This is suspicious for a pancreatic mass. Recommend ERCP for further evaluation. 2. There is diffuse dilatation of the main pancreatic duct with numerous cystic type lesions throughout the entire pancreas. This is probably related to chronic pancreatitis. Fredy De La Fuente MD Objective Remarks GENERAL: elderly female, in no apparent distress. CARDIOVASCULAR: Regular rate and regular rhythm without murmurs, gallops, or rubs. RESPIRATORY: Clear to auscultation. Breath sounds equal bilaterally. No wheezes , rales, or rhonchi. GASTROINTESTINAL: Abdomen soft,mild lower abdominal tenderness, nondistended. Normal, active bowel sounds MUSCULOSKELETAL: Extremities without clubbing, cyanosis, or edema. NEURO: Alert & Oriented x4 to person, place, time, situation. Moves all ext x4 Procedures ERCP/ biliary drain placement/ endoscopic ultrasound with FNA Medications and IVs Inpatient Medications Acetaminophen/ Hydrocodone Bitart ([place] 5-325 Mg) 1 tab Q4H PRN PO PAIN 1-10 Last administered on 12/15/17at 21:38; Start 12/14/17 at 16:30 Amlodipine Besylate (Norvasc) 10 mg DAILY PO Last administered on 12/15/17at 08: 46; Start 12/11/17 at 09:00 Chlorhexidine Gluconate (Chlorhexidine 2% Cloth) 3 pack CASKET ASSEMBLER PRN TOPICAL SEE LABEL COMMENTS; Start 12/13/17 at 20:00; Stop 12/16/17 at 19:59 Clonidine (Catapres) 0.1 mg Q8HR PRN PO SBP>180 or DBP>100 Last administered on 12/12/17at 21:03; Start 12/10/17 at 16:00 Dextrose (D50w (Vial) Inj) 50 ml UNSCH PRN IV PUSH HYPOGLYCEMIA-SEE COMMENTS; Start 12/09/17 at 02:30 Diatrizoate Meglum/ Diatrizoate Sod ( Gastroview Liq) 18 ml ONCE ONCE PO Last administered on 12/12/17at 20:49; Start 12/12/17 at 20:15; Stop 12/12/17 at 20:16; Status DC Donepezil HCl (Aricept) 5 mg HS PO Last administered on 12/15/17at 21:23; Start 12/09/17 at 21:00 Enalaprilat (Vasotec Inj) 2.5 mg Q6H PRN IV PUSH SBP>180 or DBP>100 Last administered on 12/14/17at 17:24; Start 12/10/17 at 16:00 Famotidine (Pepcid Inj) 20 mg Q12H IV PUSH Last administered on 12/13/17at 08:47 ; Start 12/11/17 at 21:00; Stop 12/13/17 at 14:32; Status DC Famotidine (Pepcid) 10 mg BID PO Last administered on 12/15/17at 21:22; Start 12/15/17 at 21:00 Glucagon (Glucagon Inj) 1 mg UNSCH PRN OTHER HYPOGLYCEMIA-SEE COMMENTS; Start 12/09/17 at 02:30 Insulin Aspart (NovoLOG SUPPLEMENTAL SCALE) 1 ACHS SLIDING SCALE SQ Last administered on 12/15/17at 21:37; Start 12/09/17 at 08:00 Insulin Human Regular (NovoLIN R INJ) See Protocol Table ... CASKET ASSEMBLER PRN SQ SEE PROTOCOL TABLE; Start 12/13/17 at 20:00; Stop 12/16/17 at 19:59 Lactated Ringer's 1,000 ml @ 30 mls/hr Q24H PRN IV SEE LABEL COMMENTS; Start at 20:00; Stop 12/16/17 at 19:59 Lactulose (Lactulose Liq) 30 ml NOW ONCE PO Last administered on 12/12/17at 20: 50; Start 12/12/17 at 19:30; Stop 12/12/17 at 19:50; Status DC Metoprolol Tartrate (Lopressor) 25 mg CASKET ASSEMBLER PRN PO SEE LABEL COMMENTS; Start 12/13/17 at 20:00; Stop 12/16/17 at 19:59 Miscellaneous (Pill Splitter) 1 ea UNSCH PRN OTHER SEE LABEL COMMENTS; Start at 14:45 Miscellaneous Information ALL NURSING DEPARTME... UNSCH PRN .XX SEE LABEL COMMENTS; Start 12/10/17 at 14:45; Stop 12/11/17 at 14:44; Status DC Morphine Sulfate (Morphine Inj) 1 mg Q3H PRN IV PUSH Pain > 3 Last administered on 12/12/17at 06:33; Start 12/09/17 at 02:30; Stop 12/12/17 at 14:32 ; Status DC Ondansetron HCl (Zofran Inj) 4 mg Q6HR PRN IV PUSH NAUSEA OR VOMITING Last administered on 12/14/17at 12:33; Start 12/09/17 at 02:30 Potassium Bicarb/ Potassium Chloride (K-Lyte Cl Eff) 50 meq ONCE ONCE PO Last administered on 12/12/17at 09:12; Start 12/12/17 at 10:00; Stop 12/12/17 at 10:01; Status DC Povidone Iodine (Betadine 5% Antisepsis Kit) 1 applic CASKET ASSEMBLER PRN EACH NARE SEE LABEL COMMENTS; Start 12/13/17 at 20:00; Stop 12/16/17 at 19:59 Sodium Chloride 500 ml @ 30 mls/hr [id number] PRN IV SEE LABEL COMMENTS; Start at 20:00; Stop 12/16/17 at 19:59 Tramadol HCl (Ultram) 50 mg Q4H PRN PO pain 3-10 Last administered on 12/14/17at 12:35; Start 12/12/17 at 14:45; Stop 12/14/17 at 16:24; Status DC A/P Problem List: (1) Biliary obstruction ICD Code: K83.1 - Obstruction of bile duct (2) Type 2 diabetes mellitus ICD Code: E11.9 - Type 2 diabetes mellitus without complications Status: Chronic (3) Hypertension ICD Code: I10 - Essential (primary) hypertension (4) Neuropathy ICD Code: G62.9 - Polyneuropathy, unspecified (5) Diabetic leg ulcer ICD Code: E11.622 - Type 2 diabetes mellitus with other skin ulcer; L97.909 - Non-pressure chronic ulcer of unspecified part of unspecified lower leg with unspecified severity Assessment and Plan A/P pancreatic cancer Biliary obstruction s/p ERCP sphincterectomy was attempted 12/08/[address] 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 -s/p endoscopic US with FNA with : Diffusely abnormal pancreas with a cystic appearance and a dilated pancreatic duct/Abnormal pancreatic head of unclear significance. pathology with poorly differentiated adenocarcinoma - CT scan of the chest abdomen and pelvis showed severe cystic changes throughout the entire pancreas and 4.2 cm left thyroid mass. Common bile duct pathology negative for any malignancy. GI and oncology following. Left thyroid mass -TSH WNL- f/u as outpatient. Hypertension -controlled. Continue with amlodipine to 10 mg p.o. daily. Continue with Vasotec and clonidine as needed. Type 2 Diabetes Mellitus -change to [address] [place] ADA - Accu-Cheks before meals and at bedtime with low-dose NovoLog sliding scale coverage - Monitor trends and blood glucose readings and adjust treatments as indicated Diabetic leg ulcers - Consulted wound care nurse DVT prophylaxis SCDs/TEDs right lower extremity only, contraindicated due to left lower extremity wounds - chemoprophylaxis when cleared by GI Discharge Planning awaiting oncology f/u and recommendations. Yen Stern MD Dec 16, 2017 08:04
[2017-12-16 08:36] VITALS: BP 147/67; PULSE 89; RESP 20; TEMP 98.5; O2SAT 96
[2017-12-16] MEDS: FAMOTIDINE 20 MG TAB PO SCH ×2 (09:10→22:09)
[2017-12-16 11:46] VITALS: BP 143/64; PULSE 83; RESP 20; TEMP 98.4; O2SAT 96
[2017-12-16] MEDS: ACETAMINOPHEN/HYDROcodone 325 MG/5 MG TAB PO PRN ×2 (12:35→16:55)
[2017-12-16 16:07] VITALS: BP 142/64; PULSE 78; RESP 20; TEMP 99.2; O2SAT 100
[2017-12-16 20:30] VITALS: BP 132/80; PULSE 87; RESP 17; TEMP 97.4; O2SAT 97
[2017-12-16] MEDS: DONEPEZIL HCL 5 MG TAB PO SCH (22:35)
[2017-12-17 00:37] VITALS: BP 128/59; PULSE 74; RESP 17; TEMP 98; O2SAT 99
[2017-12-17 05:22] VITALS: BP 148/59; PULSE 88; RESP 17; TEMP 99; O2SAT 99
[2017-12-17] MEDS: INSULIN ASPART SUPPLEMENTAL SCALE SQ SCH ×4 (08:00→21:54)
--- NOTE | 2017-12-17 08:01 | HHI.PR ---
Subjective Remarks in no acute distress. has some pain to the left foot wound but looks somewhat more comfortable today. has minimal abdominal pain. Objective Vitals Vital Signs Date Time Temp Pulse Resp B/P (MAP) Pulse Ox O2 Delivery O2 Flow Rate FiO2 12/17/17 05:22 99.0 88 17 148/59 (88) 99 12/17/17 00:37 98.0 74 17 128/59 (82) 99 12/16/17 20:30 97.4 87 17 132/80 (97) 97 12/16/17 18:30 20 12/16/17 16:07 99.2 78 20 142/64 (90) 100 12/16/17 11:46 98.4 83 20 143/64 (90) 96 12/16/17 08:36 98.5 89 20 147/67 (93) 96 I/O 12/16/17 12/16/17 12/16/17 12/17/17 12/17/17 12/17/17 07:00 15:00 23:00 07:00 15:00 23:00 Intake Total 810 ml 660 ml 240 ml Output Total 750 ml 20 ml Balance 60 ml -20 ml 660 ml 240 ml Intake Oral 810 ml 660 ml 240 ml Output Urine Total 750 ml Drainage Total 20 ml # Voids 1 4 # Bowel Movements 0 1 1 Result Diagram: 12/15/17 0625 12/16/17 0550 Imaging Last Impressions Chest CT 12/12/17 0000 Signed Impressions: Service Date/Time: Tuesday, December 12, 2017 22:22 - CONCLUSION: 1. No evidence of metastatic disease. 2. Right basilar atelectasis 3. 4.2 cm mass in the left lobe of thyroid which may reflect goiter or less likely neoplasm. Ken Miller MD Abdomen/Pelvis CT 12/12/17 0000 Signed Impressions: Service Date/Time: Tuesday, December 12, 2017 22:22 - CONCLUSION: 1. Severe cystic change throughout the entire pancreas, mucinous cystic neoplasm is not excluded particularly in tail where it extends into the splenic hilum. No hepatic lesions are identified Ken Miller MD Catheter Change 12/11/17 0000 Signed Impressions: Service Date/Time: Monday, December 11, 2017 14:34 - CONCLUSION: Uncomplicated tube cholangiography and biliary biopsy with internal/external drainage catheter exchange as described in detail above.. Bertram Chaudhari MD Bile Duct Drainage 12/10/17 0000 Signed Impressions: Service Date/Time: Sunday, December 10, 2017 14:38 - CONCLUSION: Uncomplicated fluoroscopic guided percutaneous biliary drainage as described in detail above. After adequate decompression of the biliary tree, the patient can return for dedicated cholangiography and forcep biopsy tomorrow. Bertram Chaudhari MD Cholangiopancreatography MRI 12/09/17 0000 Signed Impressions: Service Date/Time: Saturday, December 09, 2017 13:46 - CONCLUSION: 1. There is dilatation of the common bile duct measuring at 1.3 cm. There is narrowing of the distal common bile duct suspicious for a stricture. There is some nonspecific increased soft tissue in the head of the pancreas. This is suspicious for a pancreatic mass. Recommend ERCP for further evaluation. 2. There is diffuse dilatation of the main pancreatic duct with numerous cystic type lesions throughout the entire pancreas. This is probably related to chronic pancreatitis. Fredy De La Fuente MD Objective Remarks GENERAL: elderly female, in no apparent distress. CARDIOVASCULAR: Regular rate and regular rhythm without murmurs, gallops, or rubs. RESPIRATORY: Clear to auscultation. Breath sounds equal bilaterally. No wheezes , rales, or rhonchi. GASTROINTESTINAL: Abdomen soft,mild lower abdominal tenderness, nondistended. Normal, active bowel sounds MUSCULOSKELETAL: Extremities without clubbing, cyanosis, or edema. NEURO: Alert & Oriented x4 to person, place, time, situation. Moves all ext x4 Procedures ERCP/ biliary drain placement/ endoscopic ultrasound with FNA Medications and IVs Inpatient Medications Acetaminophen/ Hydrocodone Bitart ([place] 5-325 Mg) 2 tab Q4H PRN PO PAIN 6-10 Last administered on 12/16/17at 16:55; Start 12/16/17 at 08:15 Amlodipine Besylate (Norvasc) 10 mg DAILY PO Last administered on 12/16/17at 09: 10; Start 12/11/17 at 09:00 Chlorhexidine Gluconate (Chlorhexidine 2% Cloth) 3 pack SEAM PRESS OPERATOR PRN TOPICAL SEE LABEL COMMENTS; Start 12/13/17 at 20:00; Stop 12/16/17 at 19:59; Status DC Clonidine (Catapres) 0.1 mg Q8HR PRN PO SBP>180 or DBP>100 Last administered on 12/12/17at 21:03; Start 12/10/17 at 16:00 Dextrose (D50w (Vial) Inj) 50 ml UNSCH PRN IV PUSH HYPOGLYCEMIA-SEE COMMENTS; Start 12/09/17 at 02:30 Diatrizoate Meglum/ Diatrizoate Sod ( Gastroview Liq) 18 ml ONCE ONCE PO Last administered on 12/12/17at 20:49; Start 12/12/17 at 20:15; Stop 12/12/17 at 20:16; Status DC Donepezil HCl (Aricept) 5 mg HS PO Last administered on 12/16/17at 22:35; Start 12/09/17 at 21:00 Enalaprilat (Vasotec Inj) 2.5 mg Q6H PRN IV PUSH SBP>180 or DBP>100 Last administered on 12/14/17at 17:24; Start 12/10/17 at 16:00 Famotidine (Pepcid Inj) 20 mg Q12H IV PUSH Last administered on 12/13/17at 08:47 ; Start 12/11/17 at 21:00; Stop 12/13/17 at 14:32; Status DC Famotidine (Pepcid) 10 mg BID PO Last administered on 12/16/17at 22:09; Start 12/15/17 at 21:00 Glucagon (Glucagon Inj) 1 mg UNSCH PRN OTHER HYPOGLYCEMIA-SEE COMMENTS; Start 12/09/17 at 02:30 Insulin Aspart (NovoLOG SUPPLEMENTAL SCALE) 1 ACHS SLIDING SCALE SQ Last administered on 12/16/17at 22:34; Start 12/09/17 at 08:00 Insulin Human Regular (NovoLIN R INJ) See Protocol Table ... SEAM PRESS OPERATOR PRN SQ SEE PROTOCOL TABLE; Start 12/13/17 at 20:00; Stop 12/16/17 at 19:59; Status DC Lactated Ringer's 1,000 ml @ 30 mls/hr Q24H PRN IV SEE LABEL COMMENTS; Start at 20:00; Stop 12/16/17 at 19:59; Status DC Lactulose (Lactulose Liq) 30 ml NOW ONCE PO Last administered on 12/12/17at 20: 50; Start 12/12/17 at 19:30; Stop 12/12/17 at 19:50; Status DC Metoprolol Tartrate (Lopressor) 25 mg SEAM PRESS OPERATOR PRN PO SEE LABEL COMMENTS; Start 12/13/17 at 20:00; Stop 12/16/17 at 19:59; Status DC Miscellaneous (Pill Splitter) 1 ea UNSCH PRN OTHER SEE LABEL COMMENTS; Start at 14:45 Miscellaneous Information ALL NURSING DEPARTME... UNSCH PRN .XX SEE LABEL COMMENTS; Start 12/10/17 at 14:45; Stop 12/11/17 at 14:44; Status DC Morphine Sulfate (Morphine Inj) 1 mg Q3H PRN IV PUSH Pain > 3 Last administered on 12/12/17at 06:33; Start 12/09/17 at 02:30; Stop 12/12/17 at 14:32 ; Status DC Ondansetron HCl (Zofran Inj) 4 mg Q6HR PRN IV PUSH NAUSEA OR VOMITING Last administered on 12/14/17at 12:33; Start 12/09/17 at 02:30 Potassium Bicarb/ Potassium Chloride (K-Lyte Cl Eff) 50 meq ONCE ONCE PO Last administered on 12/12/17at 09:12; Start 12/12/17 at 10:00; Stop 12/12/17 at 10:01; Status DC Povidone Iodine (Betadine 5% Antisepsis Kit) 1 applic SEAM PRESS OPERATOR PRN EACH NARE SEE LABEL COMMENTS; Start 12/13/17 at 20:00; Stop 12/16/17 at 19:59; Status DC Sodium Chloride 500 ml @ 30 mls/hr [id number] PRN IV SEE LABEL COMMENTS; Start at 20:00; Stop 12/16/17 at 19:59; Status DC Tramadol HCl (Ultram) 50 mg Q4H PRN PO pain 3-10 Last administered on 12/14/17at 12:35; Start 12/12/17 at 14:45; Stop 12/14/17 at 16:24; Status DC A/P Problem List: (1) Biliary obstruction ICD Code: K83.1 - Obstruction of bile duct (2) Type 2 diabetes mellitus ICD Code: E11.9 - Type 2 diabetes mellitus without complications Status: Chronic (3) Hypertension ICD Code: I10 - Essential (primary) hypertension (4) Neuropathy ICD Code: G62.9 - Polyneuropathy, unspecified (5) Diabetic leg ulcer ICD Code: E11.622 - Type 2 diabetes mellitus with other skin ulcer; L97.909 - Non-pressure chronic ulcer of unspecified part of unspecified lower leg with unspecified severity Assessment and Plan A/P pancreatic cancer Biliary obstruction s/p ERCP sphincterectomy was attempted 12/08/[address] Lawler -Status post biliary drain placement by IR on 12/10 and cholangiogram done on . -s/p endoscopic US with FNA with : Diffusely abnormal pancreas with a cystic appearance and a dilated pancreatic duct/Abnormal pancreatic head of unclear significance. pathology with poorly differentiated adenocarcinoma - CT scan of the chest abdomen and pelvis showed severe cystic changes throughout the entire pancreas and 4.2 cm left thyroid mass. Common bile duct pathology negative for any malignancy. GI and oncology following. Left thyroid mass -TSH WNL- f/u as outpatient. Hypertension -controlled. Continue with amlodipine to 10 mg p.o. daily. Continue with Vasotec and clonidine as needed. Type 2 Diabetes Mellitus -changed to 1800 ham[address] ADA - Accu-Cheks before meals and at bedtime with low-dose NovoLog sliding scale coverage - Monitor trends and blood glucose readings and adjust treatments as indicated Diabetic leg ulcers - Consulted wound care nurse DVT prophylaxis SCDs/TEDs right lower extremity only, contraindicated due to left lower extremity wounds - chemoprophylaxis when cleared by GI Discharge Planning awaiting oncology f/u and recommendations. Yen Stern MD Dec 17, 2017 08:00
[2017-12-17] MEDS: FAMOTIDINE 20 MG TAB PO SCH ×2 (08:44→21:44)
[2017-12-17 08:45] VITALS: BP 142/63; PULSE 86; RESP 18; TEMP 98.9; O2SAT 96
[2017-12-17 08:48] LABS: AUTOMATED NEUTROPHIL # 4.8 TH/MM3 (1.8-7.7); BASOPHIL # 0.1 TH/MM3 (0-0.2); BASOPHIL % 0.7 % (0.0-2.0); EOSINOPHIL % 0.7 % (0.0-4.0); HEMATOCRIT 32.8 % (35.0-46.0); LYMPH % 21.2 % (9.0-44.0); LYMPHOCYTE # 1.5 TH/MM3 (1.0-4.8); MEAN CELL VOLUME 89.7 FL (80.0-100.0); MEAN CORPUSCULAR HEMOGLOBIN 30.1 PG (27.0-34.0); MEAN CORPUSCULAR HGB CONC 33.5 % (32.0-36.0); MEAN PLATELET VOLUME 9.2 FL (7.0-11.0); MONO % 9.6 % (0.0-8.0); MONOCYTE # 0.7 TH/MM3 (0-0.9); NEUT % 67.8 % (16.0-70.0); PLATELET COUNT 280 TH/MM3 (150-450); RED BLOOD COUNT 3.66 MIL/MM3 (4.00-5.30); RED CELL DISTRIBUTION WIDTH 17.1 % (11.6-17.2)
[2017-12-17] MEDS: ACETAMINOPHEN/HYDROcodone 325 MG/5 MG TAB PO PRN ×2 (12:16→18:08)
[2017-12-17 12:42] VITALS: BP 118/56; PULSE 83; RESP 18; TEMP 98.8; O2SAT 97
[2017-12-17 16:35] VITALS: BP 142/72; PULSE 98; RESP 18; TEMP 97.6; O2SAT 97
[2017-12-17 21:02] VITALS: BP 155/67; PULSE 78; RESP 17; TEMP 98.4; O2SAT 98
[2017-12-17] MEDS: DONEPEZIL HCL 5 MG TAB PO SCH (21:44)
[2017-12-18 00:41] VITALS: BP 166/81; PULSE 83; RESP 17; TEMP 98; O2SAT 98
[2017-12-18 05:11] VITALS: BP 176/81; PULSE 98; RESP 17; TEMP 98.2; O2SAT 97
[2017-12-18 08:00] VITALS: BP 154/67; PULSE 92; RESP 16; TEMP 98.6; O2SAT 97
[2017-12-18] MEDS: FAMOTIDINE 20 MG TAB PO SCH ×2 (08:24→22:10)
[2017-12-18] MEDS: INSULIN ASPART SUPPLEMENTAL SCALE SQ SCH ×4 (08:25→22:27)
[2017-12-18] MEDS ORDERED: AMLO10 PO (08:38)
--- NOTE | 2017-12-18 08:38 | HHI.PR ---
Subjective Remarks in no acute distress. pain is fairly controlled. no new complaints. d/w the RN and no acute issues over night. Objective Vitals Vital Signs Date Time Temp Pulse Resp B/P (MAP) Pulse Ox O2 Delivery O2 Flow Rate FiO2 12/18/17 05:11 98.2 98 17 176/81 (112) 97 12/18/17 00:41 98.0 83 17 166/81 (109) 98 12/17/17 21:02 98.4 78 17 155/67 (96) 98 12/17/17 19:08 18 12/17/17 16:35 97.6 98 18 142/72 (95) 97 12/17/17 12:42 98.8 83 18 118/56 (76) 97 12/17/17 08:45 98.9 86 18 142/63 (89) 96 I/O 12/17/17 12/17/17 12/17/17 12/18/17 12/18/17 12/18/17 07:00 15:00 23:00 07:00 15:00 23:00 Intake Total 240 ml 480 ml 360 ml Output Total 15 ml Balance 240 ml 480 ml -15 ml 360 ml Intake Oral 240 ml 480 ml 360 ml Drainage Total 15 ml # Voids 4 2 3 # Bowel Movements 1 Result Diagram: 12/17/17 0653 12/16/17 0550 Imaging Last Impressions Chest CT 12/12/17 0000 Signed Impressions: Service Date/Time: Tuesday, December 12, 2017 22:22 - CONCLUSION: 1. No evidence of metastatic disease. 2. Right basilar atelectasis 3. 4.2 cm mass in the left lobe of thyroid which may reflect goiter or less likely neoplasm. Ken Miller MD Abdomen/Pelvis CT 12/12/17 0000 Signed Impressions: Service Date/Time: Tuesday, December 12, 2017 22:22 - CONCLUSION: 1. Severe cystic change throughout the entire pancreas, mucinous cystic neoplasm is not excluded particularly in tail where it extends into the splenic hilum. No hepatic lesions are identified Ken Miller MD Catheter Change 12/11/17 0000 Signed Impressions: Service Date/Time: Monday, December 11, 2017 14:34 - CONCLUSION: Uncomplicated tube cholangiography and biliary biopsy with internal/external drainage catheter exchange as described in detail above.. Bertram Chaudhari MD Bile Duct Drainage 12/10/17 0000 Signed Impressions: Service Date/Time: Sunday, December 10, 2017 14:38 - CONCLUSION: Uncomplicated fluoroscopic guided percutaneous biliary drainage as described in detail above. After adequate decompression of the biliary tree, the patient can return for dedicated cholangiography and forcep biopsy tomorrow. Bertram Chaudhari MD Cholangiopancreatography MRI 12/09/17 0000 Signed Impressions: Service Date/Time: Saturday, December 09, 2017 13:46 - CONCLUSION: 1. There is dilatation of the common bile duct measuring at 1.3 cm. There is narrowing of the distal common bile duct suspicious for a stricture. There is some nonspecific increased soft tissue in the head of the pancreas. This is suspicious for a pancreatic mass. Recommend ERCP for further evaluation. 2. There is diffuse dilatation of the main pancreatic duct with numerous cystic type lesions throughout the entire pancreas. This is probably related to chronic pancreatitis. Fredy De La Fuente MD Objective Remarks GENERAL: elderly female, in no apparent distress. CARDIOVASCULAR: Regular rate and regular rhythm without murmurs, gallops, or rubs. RESPIRATORY: Clear to auscultation. Breath sounds equal bilaterally. No wheezes , rales, or rhonchi. GASTROINTESTINAL: Abdomen soft,mild lower abdominal tenderness, nondistended. Normal, active bowel sounds MUSCULOSKELETAL: Extremities without clubbing, cyanosis, or edema. NEURO: Alert & Oriented x4 to person, place, time, situation. Moves all ext x4 Procedures ERCP/ biliary drain placement/ endoscopic ultrasound with FNA Medications and IVs Inpatient Medications Acetaminophen/ Hydrocodone Bitart ([place] 5-325 Mg) 2 tab Q4H PRN PO PAIN 6-10 Last administered on 12/16/17at 16:55; Start 12/16/17 at 08:15 Amlodipine Besylate (Norvasc) 10 mg DAILY PO Last administered on 12/18/17at 08: 24; Start 12/11/17 at 09:00 Chlorhexidine Gluconate (Chlorhexidine 2% Cloth) 3 pack PAINT GRINDER PRN TOPICAL SEE LABEL COMMENTS; Start 12/13/17 at 20:00; Stop 12/16/17 at 19:59; Status DC Clonidine (Catapres) 0.1 mg Q8HR PRN PO SBP>180 or DBP>100 Last administered on 12/12/17at 21:03; Start 12/10/17 at 16:00 Dextrose (D50w (Vial) Inj) 50 ml UNSCH PRN IV PUSH HYPOGLYCEMIA-SEE COMMENTS; Start 12/09/17 at 02:30 Diatrizoate Meglum/ Diatrizoate Sod ( Gastroview Liq) 18 ml ONCE ONCE PO Last administered on 12/12/17at 20:49; Start 12/12/17 at 20:15; Stop 12/12/17 at 20:16; Status DC Donepezil HCl (Aricept) 5 mg HS PO Last administered on 12/17/17at 21:44; Start 12/09/17 at 21:00 Enalaprilat (Vasotec Inj) 2.5 mg Q6H PRN IV PUSH SBP>180 or DBP>100 Last administered on 12/14/17at 17:24; Start 12/10/17 at 16:00 Famotidine (Pepcid Inj) 20 mg Q12H IV PUSH Last administered on 12/13/17at 08:47 ; Start 12/11/17 at 21:00; Stop 12/13/17 at 14:32; Status DC Famotidine (Pepcid) 10 mg BID PO Last administered on 12/18/17at 08:24; Start 12/15/17 at 21:00 Glucagon (Glucagon Inj) 1 mg UNSCH PRN OTHER HYPOGLYCEMIA-SEE COMMENTS; Start 12/09/17 at 02:30 Insulin Aspart (NovoLOG SUPPLEMENTAL SCALE) 1 ACHS SLIDING SCALE SQ Last administered on 12/17/17at 21:54; Start 12/09/17 at 08:00 Insulin Human Regular (NovoLIN R INJ) See Protocol Table ... PAINT GRINDER PRN SQ SEE PROTOCOL TABLE; Start 12/13/17 at 20:00; Stop 12/16/17 at 19:59; Status DC Lactated Ringer's 1,000 ml @ 30 mls/hr Q24H PRN IV SEE LABEL COMMENTS; Start at 20:00; Stop 12/16/17 at 19:59; Status DC Lactulose (Lactulose Liq) 30 ml NOW ONCE PO Last administered on 12/12/17at 20: 50; Start 12/12/17 at 19:30; Stop 12/12/17 at 19:50; Status DC Metoprolol Tartrate (Lopressor) 25 mg PAINT GRINDER PRN PO SEE LABEL COMMENTS; Start 12/13/17 at 20:00; Stop 12/16/17 at 19:59; Status DC Miscellaneous (Pill Splitter) 1 ea UNSCH PRN OTHER SEE LABEL COMMENTS; Start at 14:45 Miscellaneous Information ALL NURSING DEPARTME... UNSCH PRN .XX SEE LABEL COMMENTS; Start 12/10/17 at 14:45; Stop 12/11/17 at 14:44; Status DC Morphine Sulfate (Morphine Inj) 1 mg Q3H PRN IV PUSH Pain > 3 Last administered on 12/12/17at 06:33; Start 12/09/17 at 02:30; Stop 12/12/17 at 14:32 ; Status DC Ondansetron HCl (Zofran Inj) 4 mg Q6HR PRN IV PUSH NAUSEA OR VOMITING Last administered on 12/14/17at 12:33; Start 12/09/17 at 02:30 Potassium Bicarb/ Potassium Chloride (K-Lyte Cl Eff) 50 meq ONCE ONCE PO Last administered on 12/12/17at 09:12; Start 12/12/17 at 10:00; Stop 12/12/17 at 10:01; Status DC Povidone Iodine (Betadine 5% Antisepsis Kit) 1 applic PAINT GRINDER PRN EACH NARE SEE LABEL COMMENTS; Start 12/13/17 at 20:00; Stop 12/16/17 at 19:59; Status DC Sodium Chloride 500 ml @ 30 mls/hr [id number] PRN IV SEE LABEL COMMENTS; Start at 20:00; Stop 12/16/17 at 19:59; Status DC Tramadol HCl (Ultram) 50 mg Q4H PRN PO pain 3-10 Last administered on 12/14/17at 12:35; Start 12/12/17 at 14:45; Stop 12/14/17 at 16:24; Status DC A/P Problem List: (1) Biliary obstruction ICD Code: K83.1 - Obstruction of bile duct (2) Type 2 diabetes mellitus ICD Code: E11.9 - Type 2 diabetes mellitus without complications Status: Chronic (3) Hypertension ICD Code: I10 - Essential (primary) hypertension (4) Neuropathy ICD Code: G62.9 - Polyneuropathy, unspecified (5) Diabetic leg ulcer ICD Code: E11.622 - Type 2 diabetes mellitus with other skin ulcer; L97.909 - Non-pressure chronic ulcer of unspecified part of unspecified lower leg with unspecified severity Assessment and Plan A/P pancreatic cancer Biliary obstruction s/p ERCP sphincterectomy was attempted 12/08/[address] Lawler -Status post biliary drain placement by IR on 12/10 and cholangiogram done on . -s/p endoscopic US with FNA with : Diffusely abnormal pancreas with a cystic appearance and a dilated pancreatic duct/Abnormal pancreatic head of unclear significance. pathology with poorly differentiated adenocarcinoma - CT scan of the chest abdomen and pelvis showed severe cystic changes throughout the entire pancreas and 4.2 cm left thyroid mass. Common bile duct pathology negative for any malignancy. GI and oncology following. Left thyroid mass -TSH WNL- f/u as outpatient. Hypertension -controlled. Continue with amlodipine to 10 mg p.o. daily. Continue with Vasotec and clonidine as needed. Type 2 Diabetes Mellitus -changed to 1800 [address] ADA - Accu-Cheks before meals and at bedtime with low-dose NovoLog sliding scale coverage - Monitor trends and blood glucose readings and adjust treatments as indicated Diabetic leg ulcers - Consulted wound care nurse DVT prophylaxis SCDs/TEDs right lower extremity only, contraindicated due to left lower extremity wounds - chemoprophylaxis when cleared by GI Discharge Planning awaiting oncology f/u and recommendations. Yen Stern MD Dec 18, 2017 08:38
[2017-12-18 12:00] VITALS: BP 128/61; PULSE 78; RESP 16; TEMP 98.6; O2SAT 98
--- NOTE | 2017-12-18 12:47 | PD.ONC.PN ---
Subjective Subjective Remarks Resting comfortably in bed in no distress. Eating well. Pathology returned as pancreatic adenocarcinoma. Discussed results with patient and gave her a copy of her pathology report. Objective Data Date Time Temp Pulse Resp B/P (MAP) Pulse Ox O2 Delivery O2 Flow Rate FiO2 12/18/17 08:00 98.6 92 16 154/67 (96) 97 12/18/17 05:11 98.2 98 17 176/81 (112) 97 12/18/17 00:41 98.0 83 17 166/81 (109) 98 12/17/17 21:02 98.4 78 17 155/67 (96) 98 12/17/17 19:08 18 12/17/17 16:35 97.6 98 18 142/72 (95) 97 12/17/17 12:42 98.8 83 18 118/56 (76) 97 12/18/17 12/18/17 12/18/17 07:00 15:00 23:00 Intake Total 360 ml Balance 360 ml Result Diagram: 12/17/17 0653 12/16/17 0550 Administered Medications Medications (Trade) Dose Ordered Sig/Jesús Route PRN Reason Start Time Stop Time Status Last Admin Dose Admin Donepezil HCl (Aricept) 5 mg HS PO 12/09/17 21:00 12/17/17 21:44 Insulin Aspart (NovoLOG SUPPLEMENTAL SCALE) 1 ACHS SLIDING SCALE SQ 12/09/17 08:00 12/17/17 21:54 Ondansetron HCl (Zofran Inj) 4 mg Q6HR PRN IV PUSH NAUSEA OR VOMITING 12/09/17 02:30 12/14/17 12:33 Enalaprilat (Vasotec Inj) 2.5 mg Q6H PRN IV PUSH SBP>180 or DBP>100 12/10/17 16:00 12/14/17 17:24 Clonidine (Catapres) 0.1 mg Q8HR PRN PO SBP>180 or DBP>100 12/10/17 16:00 12/12/17 21:03 Amlodipine Besylate (Norvasc) 10 mg DAILY PO 12/11/17 09:00 12/18/17 08:24 Acetaminophen/ Hydrocodone Bitart ([place] 5-325 Mg) 1 tab Q4H PRN PO PAIN 1-5 3/1/18 16:30 12/17/17 18:08 Famotidine (Pepcid) 10 mg BID PO 12/15/17 21:00 12/18/17 08:24 Acetaminophen/ Hydrocodone Bitart ([place] 5-325 Mg) 2 tab Q4H PRN PO PAIN 6-10 12/16/17 08:15 12/16/17 16:55 Objective Remarks GENERAL: thin elderly lady in no distress SKIN: Warm and dry. HEAD: Normocephalic. EYES: No scleral icterus. No injection or drainage. RESPIRATORY: No accessory muscle use. GASTROINTESTINAL: Abdomen soft, non-tender, nondistended. EXTREMITIES: No cyanosis, or edema. MUSCULOSKELETAL: Adequate muscle tone. NEUROLOGICAL: No obvious focal deficit. Awake, alert, and oriented x3. PSYCHIATRIC: Appropriate mood and affect; insight and judgment normal. Assessment/Plan Assessment 1. Pancreatic adenocarcnioma: cytology results returned. No evidence of metastatic disease. CA 19-9 in 300's. Discussed treatment of pancreatic cancer with patient. She reports that she would like to be educated on all of her options including surgery, radiation therapy and chemotherapy. She would like to talk with surgeon regarding feasibility of resection. She reports that likely would not move forward with chemotherapy or surgery given age. -Will plan to present patient at tumor board tomorrow -Close follow up in oncology clinic. -Cleared for discharge from oncology standpoint. 2. Elevated bili: due to bile duct stricture. S/p placement of drain with improvement in bili. Tess Altamirano MD Dec 18, 2017 12:47
--- NOTE | 2017-12-18 13:23 | HHI.PR ---
Addendum To [facility] Progress Not Reason for addendum: Additonal documentation (d/w and and plan for biliary stent placement tomorrow- NPO after midnight- [facility] and clearance from oncology.) Yen Stern MD Dec 18, 2017 13:23
[2017-12-18 16:00] VITALS: BP 137/67; PULSE 93; RESP 16; TEMP 97.5; O2SAT 98
[2017-12-18 19:30] VITALS: BP 145/66; PULSE 84; RESP 18; TEMP 97.8; O2SAT 98
[2017-12-18] MEDS: ACETAMINOPHEN/HYDROcodone 325 MG/5 MG TAB PO PRN (22:10)
[2017-12-18] MEDS: DONEPEZIL HCL 5 MG TAB PO SCH (22:10)
[2017-12-18] MEDS: SODIUM CHLOR 0.9% 1000 ML INJ 1,000 ML IV SCH (22:43)
[2017-12-19] VITALS (11 sets, daily range): BP systolic 134–174; BP diastolic 61–75; PULSE 69–94; RESP 18–20; TEMP 97–98.4; O2SAT 95–100
[2017-12-19] MEDS: ACETAMINOPHEN/HYDROcodone 325 MG/5 MG TAB PO PRN ×2 (05:15→17:59)
[2017-12-19] MEDS: INSULIN ASPART SUPPLEMENTAL SCALE SQ SCH ×3 (08:00→18:00)
--- NOTE | 2017-12-19 08:14 | HHI.PR ---
Subjective Remarks in no acute distress. pain is controlled. no nausea or emesis. afebrile. Objective Vitals Vital Signs Date Time Temp Pulse Resp B/P (MAP) Pulse Ox O2 Delivery O2 Flow Rate FiO2 12/18/17 19:30 97.8 84 18 145/66 (92) 98 12/18/17 16:00 97.5 93 16 137/67 (90) 98 12/18/17 12:00 98.6 78 16 128/61 (83) 98 I/O 12/18/17 12/18/17 12/18/17 12/19/17 12/19/17 12/19/17 07:00 15:00 23:00 07:00 15:00 23:00 Intake Total 360 ml Balance 360 ml Intake Oral 360 ml # Voids 3 Result Diagram: 12/17/17 0653 12/16/17 0550 Imaging Last Impressions Chest CT 12/12/17 0000 Signed Impressions: Service Date/Time: Tuesday, December 12, 2017 22:22 - CONCLUSION: 1. No evidence of metastatic disease. 2. Right basilar atelectasis 3. 4.2 cm mass in the left lobe of thyroid which may reflect goiter or less likely neoplasm. Ken Miller MD Abdomen/Pelvis CT 12/12/17 0000 Signed Impressions: Service Date/Time: Tuesday, December 12, 2017 22:22 - CONCLUSION: 1. Severe cystic change throughout the entire pancreas, mucinous cystic neoplasm is not excluded particularly in tail where it extends into the splenic hilum. No hepatic lesions are identified Ken Miller MD Catheter Change 12/11/17 0000 Signed Impressions: Service Date/Time: Monday, December 11, 2017 14:34 - CONCLUSION: Uncomplicated tube cholangiography and biliary biopsy with internal/external drainage catheter exchange as described in detail above.. Bertram Chaudhari MD Bile Duct Drainage 12/10/17 0000 Signed Impressions: Service Date/Time: Sunday, December 10, 2017 14:38 - CONCLUSION: Uncomplicated fluoroscopic guided percutaneous biliary drainage as described in detail above. After adequate decompression of the biliary tree, the patient can return for dedicated cholangiography and forcep biopsy tomorrow. Bertram Chaudhari MD Cholangiopancreatography MRI 12/09/17 0000 Signed Impressions: Service Date/Time: Saturday, December 09, 2017 13:46 - CONCLUSION: 1. There is dilatation of the common bile duct measuring at 1.3 cm. There is narrowing of the distal common bile duct suspicious for a stricture. There is some nonspecific increased soft tissue in the head of the pancreas. This is suspicious for a pancreatic mass. Recommend ERCP for further evaluation. 2. There is diffuse dilatation of the main pancreatic duct with numerous cystic type lesions throughout the entire pancreas. This is probably related to chronic pancreatitis. Fredy De La Fuente MD Objective Remarks GENERAL: elderly female, in no apparent distress. CARDIOVASCULAR: Regular rate and regular rhythm without murmurs, gallops, or rubs. RESPIRATORY: Clear to auscultation. Breath sounds equal bilaterally. No wheezes , rales, or rhonchi. GASTROINTESTINAL: Abdomen soft,mild lower abdominal tenderness, nondistended. Normal, active bowel sounds MUSCULOSKELETAL: Extremities without clubbing, cyanosis, or edema. NEURO: Alert & Oriented x4 to person, place, time, situation. Moves all ext x4 Procedures ERCP/ biliary drain placement/ endoscopic ultrasound with FNA Medications and IVs Inpatient Medications Acetaminophen/ Hydrocodone Bitart ([place] 5-325 Mg) 2 tab Q4H PRN PO PAIN 6-10 Last administered on 12/18/17at 22:10; Start 12/16/17 at 08:15 Amlodipine Besylate (Norvasc) 10 mg DAILY PO Last administered on 12/18/17at 08: 24; Start 12/11/17 at 09:00 Chlorhexidine Gluconate (Chlorhexidine 2% Cloth) 3 pack BOBBIN FIXER PRN TOPICAL SEE LABEL COMMENTS; Start 12/13/17 at 20:00; Stop 12/16/17 at 19:59; Status DC Clonidine (Catapres) 0.1 mg Q8HR PRN PO SBP>180 or DBP>100 Last administered on 12/12/17at 21:03; Start 12/10/17 at 16:00 Dextrose (D50w (Vial) Inj) 50 ml UNSCH PRN IV PUSH HYPOGLYCEMIA-SEE COMMENTS; Start 12/09/17 at 02:30 Diatrizoate Meglum/ Diatrizoate Sod ( Gastroview Liq) 18 ml ONCE ONCE PO Last administered on 12/12/17at 20:49; Start 12/12/17 at 20:15; Stop 12/12/17 at 20:16; Status DC Donepezil HCl (Aricept) 5 mg HS PO Last administered on 12/18/17at 22:10; Start 12/09/17 at 21:00 Enalaprilat (Vasotec Inj) 2.5 mg Q6H PRN IV PUSH SBP>180 or DBP>100 Last administered on 12/14/17at 17:24; Start 12/10/17 at 16:00 Famotidine (Pepcid Inj) 20 mg Q12H IV PUSH Last administered on 12/13/17at 08:47 ; Start 12/11/17 at 21:00; Stop 12/13/17 at 14:32; Status DC Famotidine (Pepcid) 10 mg BID PO Last administered on 12/18/17at 22:10; Start 12/15/17 at 21:00 Glucagon (Glucagon Inj) 1 mg UNSCH PRN OTHER HYPOGLYCEMIA-SEE COMMENTS; Start 12/09/17 at 02:30 Insulin Aspart (NovoLOG SUPPLEMENTAL SCALE) 1 ACHS SLIDING SCALE SQ Last administered on 12/18/17at 22:27; Start 12/09/17 at 08:00 Insulin Human Regular (NovoLIN R INJ) See Protocol Table ... BOBBIN FIXER PRN SQ SEE PROTOCOL TABLE; Start 12/13/17 at 20:00; Stop 12/16/17 at 19:59; Status DC Lactated Ringer's 1,000 ml @ 30 mls/hr Q24H PRN IV SEE LABEL COMMENTS; Start at 20:00; Stop 12/16/17 at 19:59; Status DC Lactulose (Lactulose Liq) 30 ml NOW ONCE PO Last administered on 12/12/17at 20: 50; Start 12/12/17 at 19:30; Stop 12/12/17 at 19:50; Status DC Metoprolol Tartrate (Lopressor) 25 mg BOBBIN FIXER PRN PO SEE LABEL COMMENTS; Start 12/13/17 at 20:00; Stop 12/16/17 at 19:59; Status DC Miscellaneous (Pill Splitter) 1 ea UNSCH PRN OTHER SEE LABEL COMMENTS; Start at 14:45 Miscellaneous Information ALL NURSING DEPARTME... UNSCH PRN .XX SEE LABEL COMMENTS; Start 12/10/17 at 14:45; Stop 12/11/17 at 14:44; Status DC Morphine Sulfate (Morphine Inj) 1 mg Q3H PRN IV PUSH Pain > 3 Last administered on 12/12/17at 06:33; Start 12/09/17 at 02:30; Stop 12/12/17 at 14:32 ; Status DC Ondansetron HCl (Zofran Inj) 4 mg Q6HR PRN IV PUSH NAUSEA OR VOMITING Last administered on 12/14/17at 12:33; Start 12/09/17 at 02:30 Potassium Bicarb/ Potassium Chloride (K-Lyte Cl Eff) 50 meq ONCE ONCE PO Last administered on 12/12/17at 09:12; Start 12/12/17 at 10:00; Stop 12/12/17 at 10:01; Status DC Povidone Iodine (Betadine 5% Antisepsis Kit) 1 applic BOBBIN FIXER PRN EACH NARE SEE LABEL COMMENTS; Start 12/13/17 at 20:00; Stop 12/16/17 at 19:59; Status DC Sodium Chloride 1,000 ml @ 75 mls/hr [id number] IV Last administered on 12/18/17at 22:43; Start 12/18/17 at 23:00 Tramadol HCl (Ultram) 50 mg Q4H PRN PO pain 3-10 Last administered on 12/14/17at 12:35; Start 12/12/17 at 14:45; Stop 12/14/17 at 16:24; Status DC A/P Problem List: (1) Biliary obstruction ICD Code: K83.1 - Obstruction of bile duct (2) Type 2 diabetes mellitus ICD Code: E11.9 - Type 2 diabetes mellitus without complications Status: Chronic (3) Hypertension ICD Code: I10 - Essential (primary) hypertension (4) Neuropathy ICD Code: G62.9 - Polyneuropathy, unspecified (5) Diabetic leg ulcer ICD Code: E11.622 - Type 2 diabetes mellitus with other skin ulcer; L97.909 - Non-pressure chronic ulcer of unspecified part of unspecified lower leg with unspecified severity Assessment and Plan A/P pancreatic cancer Biliary obstruction s/p ERCP sphincterectomy was attempted 12/08/[address] Lawler -Status post biliary drain placement by IR on 12/10 and cholangiogram done on . -s/p endoscopic US with FNA with : Diffusely abnormal pancreas with a cystic appearance and a dilated pancreatic duct/Abnormal pancreatic head of unclear significance. pathology with poorly differentiated adenocarcinoma - CT scan of the chest abdomen and pelvis showed severe cystic changes throughout the entire pancreas and 4.2 cm left thyroid mass. Common bile duct pathology negative for any malignancy. IR consulted for biliary stent placement. GI has signed off. previously d/w and . Left thyroid mass -TSH WNL- f/u as outpatient. Hypertension -controlled. Continue with amlodipine to 10 mg p.o. daily. Continue with Vasotec and clonidine as needed. Type 2 Diabetes Mellitus -changed to 1800 hamlet ADA - Accu-Cheks before meals and at bedtime with low-dose NovoLog sliding scale coverage - Monitor trends and blood glucose readings and adjust treatments as indicated Diabetic leg ulcers - Consulted wound care nurse DVT prophylaxis SCDs/TEDs right lower extremity only, contraindicated due to left lower extremity wounds Discharge Planning likely dc home later today after biliary stent placement. case management for HHC. f/u ;pcp,oncology and GI. d/w the patient. previously d/w and . time spent 35 min. Yen Stern MD Dec 19, 2017 08:14
--- NOTE | 2017-12-19 08:15 | HHI.FF ---
Face to Face Verification Diagnosis: (1) Pancreatic cancer Physical Therapy Order: Evaluate and Treat Occupational Therapy Order: Evaluate and Treat Home Health Nursing Order: Medical education Signs/symptoms of disease process Medication education-adverse effect Nursing assessment with vital signs I have seen patient Oumou Petty on 12/19/17. My clinical findings support the need for the requested home health care services because: Ltd mobility - disease progression I certify that my clinical findings support that this patient is homebound because: Unsteady gait/balance Yen Stern MD Dec 19, 2017 08:15
[2017-12-19] MEDS: FAMOTIDINE 20 MG TAB PO SCH (09:09)
[2017-12-19] MEDS ORDERED: fentaNYL CITRATE 250 MCG/5 ML AMP ONE (10:54)
[2017-12-19] MEDS ORDERED: MIDAZOLAM HCL 2 MG/2 ML VIAL ONE (10:54)
[2017-12-19] MEDS: SODIUM CHLOR 0.9% 1000 ML INJ 1,000 ML IV SCH (12:20)
[2017-12-19] MEDS ORDERED: HYDROmorphone HCL PF 2 MG/ML VIAL ONE (14:13)
--- NOTE | 2017-12-19 14:27 | PD.RAD ---
Post Procedure Progress Note Pre Procedure Diagnosis: (1) Pancreatic cancer Post Procedure Diagnosis: (1) Pancreatic cancer Procedure Date: Dec 19, 2017 Supervising Radiologist: Ken Miller Proceduralist/Assist: Jonathan Gore RT(R), RT Ayana(R) Anesthesia: Conscious Sedation Plan of Activity Patient to Unit: Nursing Unit Patient Condition: Fair See PACS Report for procedural detail/treatment Drainage Procedure Procedure 1 Imaging Guidance: Fluoroscopy Procedure Type: Biliary Drainage Procedure: Placement (stent placement) Ken Miller MD Dec 19, 2017 14:27
--- NOTE | 2017-12-19 15:56 | RADRPT ---
EXAM DATE/TIME: 12/19/2017 12:57 COMPARISON: No previous studies available for comparison. INDICATIONS : Patient presents with a common bile duct stricture in need of stent placement. MEDICAL HISTORY : HTN, Diabetes, Neuropathy, Chronic left leg diabetic ulcers, Cystic lesions of the body and tail of t he pancreas, Hyperbilirubinemia, Pancolitis SURGICAL HISTORY : Knee surgery, Hysterectomy ENCOUNTER: Initial ACUITY: 1 week PAIN SCORE: 0/10 FLUORO TIME: 32.3 minutes IMAGE SERIES: 1 SEDATION TIME: 60 minutes CONTRAST: 50 cc Omnipaque (iohexol) 350 MEDICATION(S): 1.) 7 mg midazolam (Versed) IV 2.) 300 mcg fentanyl (Sublimaze) IV DEVICE(S): 1.) stent (self expanding) 10x60 and a 10x30 2.) internal/external biliary drain 8F Nephrostomy tube 3.) WIRELESS WATCHER balloon 8mmx2.0cm cutting balloon, and 8mmx60 trolley operator Procedure Cholangiogram via indwelling catheter Angioplasty of stricture of the common bile duct Internal biliary stent placement External drainage with nephrostomy catheter FINDINGS: Cholangiogram was performed via the previously placed internal/external biliary stent. This demonstra terra a high grade stricture involving the distal 6 cm of the common bile duct. After removing the sten t a sheath was placed above the area stenosis and angioplasty was performed initially using an 8 mm c utting balloon followed by an 8 mm standard balloon. The prescribed stents were placed in overlapping fashion from the ampulla to the level above the stricture. Followup cholangiogram demonstrates good flow through the duct. Above the area of stricture an 8 Serbian drain was placed and capped to determi ne adequate access and drainage is present. If the patient remains asymptomatic this can be removed a t 48 hours. 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 Ken Miller MD on December 19, 2017 at 15:52 Board Certified Radiologist. This report was verified electronically.
--- NOTE | 2017-12-19 16:54 | PD.ONC.PN ---
Subjective Subjective Remarks Resting in bed. Mild pain due to recent procedure with placement of stent. Percutaneous drain in place. Objective Data Date Time Temp Pulse Resp B/P (MAP) Pulse Ox O2 Delivery O2 Flow Rate FiO2 12/19/17 16:26 92 18 157/70 (99) 97 12/19/17 14:44 76 18 144/75 (98) 96 12/19/17 14:15 80 18 152/69 (96) 96 12/19/17 13:45 86 18 167/70 (102) 96 12/19/17 13:30 97.3 86 18 160/68 (98) 96 12/19/17 12:39 97.9 89 18 174/73 (106) 98 12/19/17 11:25 97.9 89 18 174/73 (106) 98 12/19/17 08:31 98.4 69 18 162/72 (102) 98 12/19/17 04:00 97.0 72 18 154/67 (96) 95 12/19/17 00:00 98.3 71 20 134/61 (85) 99 12/18/17 19:30 97.8 84 18 145/66 (92) 98 Result Diagram: 12/17/17 0653 12/16/17 0550 Imaging Studies Last 24 hours Impressions Bilary Stent Insertion 12/19/17 0000 Signed Impressions: Service Date/Time: Tuesday, December 19, 2017 12:57 - CONCLUSION: Uncomplicated biliary stent placement for 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 Ken Miller MD Administered Medications Medications (Trade) Dose Ordered Sig/Jesús Route PRN Reason Start Time Stop Time Status Last Admin Dose Admin Donepezil HCl (Aricept) 5 mg HS PO 12/09/17 21:00 12/18/17 22:10 Insulin Aspart (NovoLOG SUPPLEMENTAL SCALE) 1 ACHS SLIDING SCALE SQ 12/09/17 08:00 12/18/17 22:27 Ondansetron HCl (Zofran Inj) 4 mg Q6HR PRN IV PUSH NAUSEA OR VOMITING 12/09/17 02:30 12/14/17 12:33 Enalaprilat (Vasotec Inj) 2.5 mg Q6H PRN IV PUSH SBP>180 or DBP>100 12/10/17 16:00 12/14/17 17:24 Clonidine (Catapres) 0.1 mg Q8HR PRN PO SBP>180 or DBP>100 12/10/17 16:00 12/12/17 21:03 Amlodipine Besylate (Norvasc) 10 mg DAILY PO 12/11/17 09:00 12/19/17 09:09 Acetaminophen/ Hydrocodone Bitart ([place] 5-325 Mg) 1 tab Q4H PRN PO PAIN 1-5 12/14/17 16:30 12/19/17 05:15 Famotidine (Pepcid) 10 mg BID PO 12/15/17 21:00 12/19/17 09:09 Acetaminophen/ Hydrocodone Bitart ([place] 5-325 Mg) 2 tab Q4H PRN PO PAIN 6-10 12/16/17 08:15 12/18/17 22:10 Sodium Chloride 1,000 ml @ 75 mls/hr [id number] IV 12/18/17 23:00 12/18/17 22:43 Objective Remarks GENERAL: frail lady in no distress SKIN: Warm and dry. HEAD: Normocephalic. RESPIRATORY: No accessory muscle use. GASTROINTESTINAL: abdominal tenderness, drain in place NEUROLOGICAL: No obvious focal deficit. Drowsy from IR procedure today Assessment/Plan Assessment 1. Pancreatic adenocarcnioma: cytology results returned. No evidence of metastatic disease. CA 19-9 in 300's. Discussed treatment options with patient , close friend Russ and granddaughter Mary. Patient with minimal participation in conversation due to recent procedure. She was presented at tumor board today. 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 The ideal treatment would be removal of the pancreas. She would likely not be a candidate for this procedure. Have discussed chemotherapy with patient in the past and she had declined. She would consider radiation therapy if this would alleviate symptoms. Will consult surgery team to discuss risks vs benefits of this procedure with patient and family. Will also consult palliative care team. 2. Elevated bili: due to bile duct stricture. S/p placement of drain with improvement in bili. She had stent placed today. Plan to remove drain in IR on . Tess Altamirano MD Dec 19, 2017 16:54
[2017-12-20] VITALS (7 sets, daily range): BP systolic 128–192; BP diastolic 60–88; PULSE 80–105; RESP 18–19; TEMP 97.1–98.1; O2SAT 97–99
[2017-12-20] MEDS: FAMOTIDINE 20 MG TAB PO SCH ×3 (00:04→20:20)
[2017-12-20] MEDS: DONEPEZIL HCL 5 MG TAB PO SCH ×2 (00:04→20:20)
[2017-12-20] MEDS: ACETAMINOPHEN/HYDROcodone 325 MG/5 MG TAB PO PRN ×4 (00:05→20:20)
[2017-12-20] MEDS: INSULIN ASPART SUPPLEMENTAL SCALE SQ SCH ×5 (00:13→20:29)
[2017-12-20] MEDS: SODIUM CHLOR 0.9% 1000 ML INJ 1,000 ML IV SCH ×2 (01:40→13:58)
[2017-12-20] MEDS: ONDANSETRON HCL 4 MG/2 ML VIAL IV PUSH PRN ×4 (02:43→20:21)
[2017-12-20] MEDS: cloNIDine HCL 0.1 MG TAB PO PRN (04:54)
--- NOTE | 2017-12-20 09:08 | HHI.PR ---
Subjective Remarks in no acute distress. complaining of abdominal pain and nausea. BP trend noted. d/w the RN. Objective Vitals Vital Signs Date Time Temp Pulse Resp B/P (MAP) Pulse Ox O2 Delivery O2 Flow Rate FiO2 12/20/17 07:49 97.1 105 19 192/88 (122) 98 12/20/17 06:04 98.1 102 19 190/84 (119) 99 12/20/17 01:45 97.1 104 19 180/80 (113) 98 12/19/17 21:59 97.3 94 20 157/68 (97) 100 12/19/17 16:26 92 18 157/70 (99) 97 12/19/17 14:44 76 18 144/75 (98) 96 12/19/17 14:15 80 18 152/69 (96) 96 12/19/17 13:45 86 18 167/70 (102) 96 12/19/17 13:30 97.3 86 18 160/68 (98) 96 12/19/17 12:39 97.9 89 18 174/73 (106) 98 12/19/17 11:25 97.9 89 18 174/73 (106) 98 I/O 12/19/17 12/19/17 12/19/17 12/20/17 12/20/17 12/20/17 07:00 15:00 23:00 07:00 15:00 23:00 Output Total 100 ml Balance -100 ml Drainage Total 100 ml # Voids 6 4 3 # Bowel Movements 2 Result Diagram: 12/17/17 0653 12/16/17 0550 Imaging Last Impressions Bilary Stent Insertion 12/19/17 0000 Signed Impressions: Service Date/Time: Tuesday, December 19, 2017 12:57 - CONCLUSION: Uncomplicated biliary stent placement for 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 Ken Miller MD Chest CT 12/12/17 0000 Signed Impressions: Service Date/Time: Tuesday, December 12, 2017 22:22 - CONCLUSION: 1. No evidence of metastatic disease. 2. Right basilar atelectasis 3. 4.2 cm mass in the left lobe of thyroid which may reflect goiter or less likely neoplasm. Ken Miller MD Abdomen/Pelvis CT 12/12/17 0000 Signed Impressions: Service Date/Time: Tuesday, December 12, 2017 22:22 - CONCLUSION: 1. Severe cystic change throughout the entire pancreas, mucinous cystic neoplasm is not excluded particularly in tail where it extends into the splenic hilum. No hepatic lesions are identified Ken Miller MD Catheter Change 12/11/17 0000 Signed Impressions: Service Date/Time: Monday, December 11, 2017 14:34 - CONCLUSION: Uncomplicated tube cholangiography and biliary biopsy with internal/external drainage catheter exchange as described in detail above.. Bertram Chaudhari MD Bile Duct Drainage 12/10/17 0000 Signed Impressions: Service Date/Time: Sunday, December 10, 2017 14:38 - CONCLUSION: Uncomplicated fluoroscopic guided percutaneous biliary drainage as described in detail above. After adequate decompression of the biliary tree, the patient can return for dedicated cholangiography and forcep biopsy tomorrow. Bertram Chaudhari MD Cholangiopancreatography MRI 12/09/17 0000 Signed Impressions: Service Date/Time: Saturday, December 09, 2017 13:46 - CONCLUSION: 1. There is dilatation of the common bile duct measuring at 1.3 cm. There is narrowing of the distal common bile duct suspicious for a stricture. There is some nonspecific increased soft tissue in the head of the pancreas. This is suspicious for a pancreatic mass. Recommend ERCP for further evaluation. 2. There is diffuse dilatation of the main pancreatic duct with numerous cystic type lesions throughout the entire pancreas. This is probably related to chronic pancreatitis. Fredy De La Fuente MD Objective Remarks GENERAL: elderly female, in no apparent distress. CARDIOVASCULAR: Regular rate and regular rhythm without murmurs, gallops, or rubs. RESPIRATORY: Clear to auscultation. Breath sounds equal bilaterally. No wheezes , rales, or rhonchi. GASTROINTESTINAL: Abdomen soft,mild lower abdominal tenderness, nondistended. Normal, active bowel sounds MUSCULOSKELETAL: Extremities without clubbing, cyanosis, or edema. NEURO: Alert & Oriented x4 to person, place, time, situation. Moves all ext x4 Procedures ERCP/ biliary drain placement/ endoscopic ultrasound with FNA/ biliary stent placement. Medications and IVs Inpatient Medications Acetaminophen/ Hydrocodone Bitart ([place] 5-325 Mg) 2 tab Q4H PRN PO PAIN 6-10 Last administered on 12/20/17at 08:35; Start 12/16/17 at 08:15 Amlodipine Besylate (Norvasc) 10 mg DAILY PO Last administered on 12/20/17at 08: 34; Start 12/11/17 at 09:00 Chlorhexidine Gluconate (Chlorhexidine 2% Cloth) 3 pack GRAIN MILLER HELPER PRN TOPICAL SEE LABEL COMMENTS; Start 12/13/17 at 20:00; Stop 12/16/17 at 19:59; Status DC Clonidine (Catapres) 0.1 mg Q8HR PRN PO SBP>180 or DBP>100 Last administered on 12/20/17at 04:54; Start 12/10/17 at 16:00 Dextrose (D50w (Vial) Inj) 50 ml UNSCH PRN IV PUSH HYPOGLYCEMIA-SEE COMMENTS; Start 12/09/17 at 02:30 Diatrizoate Meglum/ Diatrizoate Sod ( Gastroview Liq) 18 ml ONCE ONCE PO Last administered on 12/12/17at 20:49; Start 12/12/17 at 20:15; Stop 12/12/17 at 20:16; Status DC Donepezil HCl (Aricept) 5 mg HS PO Last administered on 12/20/17at 00:04; Start 12/09/17 at 21:00 Enalaprilat (Vasotec Inj) 2.5 mg Q6H PRN IV PUSH SBP>180 or DBP>100 Last administered on 12/14/17at 17:24; Start 12/10/17 at 16:00 Famotidine (Pepcid Inj) 20 mg Q12H IV PUSH Last administered on 12/13/17at 08:47 ; Start 12/11/17 at 21:00; Stop 12/13/17 at 14:32; Status DC Famotidine (Pepcid) 10 mg BID PO Last administered on 12/20/17at 08:35; Start 12/15/17 at 21:00 Glucagon (Glucagon Inj) 1 mg UNSCH PRN OTHER HYPOGLYCEMIA-SEE COMMENTS; Start 12/09/17 at 02:30 Insulin Aspart (NovoLOG SUPPLEMENTAL SCALE) 1 ACHS SLIDING SCALE SQ Last administered on 12/20/17at 08:32; Start 12/09/17 at 08:00 Insulin Human Regular (NovoLIN R INJ) See Protocol Table ... GRAIN MILLER HELPER PRN SQ SEE PROTOCOL TABLE; Start 12/13/17 at 20:00; Stop 12/16/17 at 19:59; Status DC Lactated Ringer's 1,000 ml @ 30 mls/hr Q24H PRN IV SEE LABEL COMMENTS; Start at 20:00; Stop 12/16/17 at 19:59; Status DC Lactulose (Lactulose Liq) 30 ml NOW ONCE PO Last administered on 12/12/17at 20: 50; Start 12/12/17 at 19:30; Stop 12/12/17 at 19:50; Status DC Metoprolol Tartrate (Lopressor) 25 mg GRAIN MILLER HELPER PRN PO SEE LABEL COMMENTS; Start 12/13/17 at 20:00; Stop 12/16/17 at 19:59; Status DC Miscellaneous (Pill Splitter) 1 ea UNSCH PRN OTHER SEE LABEL COMMENTS; Start at 14:45 Miscellaneous Information ALL NURSING DEPARTME... UNSCH PRN .XX SEE LABEL COMMENTS; Start 12/10/17 at 14:45; Stop 12/11/17 at 14:44; Status DC Morphine Sulfate (Morphine Inj) 1 mg Q3H PRN IV PUSH Pain > 3 Last administered on 12/12/17at 06:33; Start 12/09/17 at 02:30; Stop 12/12/17 at 14:32 ; Status DC Ondansetron HCl (Zofran Inj) 4 mg Q6HR PRN IV PUSH NAUSEA OR VOMITING Last administered on 12/20/17at 08:33; Start 12/09/17 at 02:30 Potassium Bicarb/ Potassium Chloride (K-Lyte Cl Eff) 50 meq ONCE ONCE PO Last administered on 12/12/17at 09:12; Start 12/12/17 at 10:00; Stop 12/12/17 at 10:01; Status DC Povidone Iodine (Betadine 5% Antisepsis Kit) 1 applic GRAIN MILLER HELPER PRN EACH NARE SEE LABEL COMMENTS; Start 12/13/17 at 20:00; Stop 12/16/17 at 19:59; Status DC Sodium Chloride 1,000 ml @ 75 mls/hr [id number] IV Last administered on 12/18/17at 22:43; Start 12/18/17 at 23:00 Tramadol HCl (Ultram) 50 mg Q4H PRN PO pain 3-10 Last administered on 12/14/17at 12:35; Start 12/12/17 at 14:45; Stop 12/14/17 at 16:24; Status DC A/P Problem List: (1) Biliary obstruction ICD Code: K83.1 - Obstruction of bile duct (2) Type 2 diabetes mellitus ICD Code: E11.9 - Type 2 diabetes mellitus without complications Status: Chronic (3) Hypertension ICD Code: I10 - Essential (primary) hypertension (4) Neuropathy ICD Code: G62.9 - Polyneuropathy, unspecified (5) Diabetic leg ulcer ICD Code: E11.622 - Type 2 diabetes mellitus with other skin ulcer; L97.909 - Non-pressure chronic ulcer of unspecified part of unspecified lower leg with unspecified severity Assessment and Plan A/P pancreatic cancer Biliary obstruction s/p ERCP sphincterectomy was attempted 12/08/[address] Lawler -Status post biliary drain placement by IR on 12/10 and cholangiogram done on . -s/p endoscopic US with FNA with : Diffusely abnormal pancreas with a cystic appearance and a dilated pancreatic duct/Abnormal pancreatic head of unclear significance. pathology with poorly differentiated adenocarcinoma - CT scan of the chest abdomen and pelvis showed severe cystic changes throughout the entire pancreas and 4.2 cm left thyroid mass. Common bile duct pathology negative for any malignancy. s/p biliary stent placement on 12/19/17. GI has signed off. palliative care and general surgery have been consulted. Left thyroid mass -TSH WNL- f/u as outpatient. Hypertension - Continue with amlodipine to 10 mg p.o. daily. Continue with Vasotec and clonidine as needed. -consider one dose of Procardia today if BP doesn't improve. Type 2 Diabetes Mellitus -changed to 1800 [address] ADA - Accu-Cheks before meals and at bedtime with low-dose NovoLog sliding scale coverage - Monitor trends and blood glucose readings and adjust treatments as indicated Diabetic leg ulcers - Consulted wound care nurse DVT prophylaxis SCDs/TEDs right lower extremity only, contraindicated due to left lower extremity wounds Discharge Planning awaiting palliative care and general surgery evaluation. Yen Stern MD Dec 20, 2017 09:08
--- NOTE | 2017-12-20 10:59 | PD.CONS ---
Consult Service Palliative Care . Consult Requested By Dr. Altamirano . Primary Care Physician Unknown . Reason for Consultation a. To assist with evaluation and management of symptoms including: pain, nausea, decreased appetite b. To assist medical decision maker(s) with: better understanding of current medical conditions; weighing benefits/burdens of medical treatment options; making medical treatment decisions. . HPI History of Present Illness Ms. Petty is an 87 year old with type 2 diabetes-diet controlled, hypertension, dementia, neuropathy and chronic lower extremity diabetic ulcers (weekly visits with wound care) who presented to [facility] on 12/07/17 with complaints of diffuse abdominal pain, nausea, jaundice, decreased appetite and an unintentional weight loss of 10 pounds in a 3 week. Patient had reported melanotic stool 1 that occurred 3 weeks previously with subsequent white- appearing stools. CT of the abdomen/pelvis showed diffuse colonic wall thickening with mild infiltration of the surrounding fat concerning for pancolitis and also intrahepatic biliary ductal dilation with innumerable cystic lesions involving the body and the tail of the pancreas possibly reflecting malignancy or multiple pseudocysts. While in the ED in [place] reportedly experienced some nausea and vomiting and diffuse abdominal pain that resolved after having 7 loose liquid yellow stools. Patient was transferred to [facility] for further evaluation and medical management on with plans for percutaneous cholangiogram the following morning. Summary from [facility] includes: * WBC: 5.5, hemoglobin 10.3, hematocrit 32.3, platelets 206,000 * INR: 1.2, APTT 34.0 * Sodium: 141, potassium 3.3, chloride 105, carbon dioxide 26, fasting glucose 93, calcium 8.9 * BUN: 6.0, creatinine 0.25, GFR >90, BUN/creatinine ratio 24.0 * Lipase: 39 * Abdominal ultrasound: Gallbladder not visualized. Common bile duct dilated measuring 9 mm in diameter. Intrahepatic ductal dilatation. Diffuse coarsening of the hepatic echotexture compatible with fatty infiltration. Diffusely abnormal pancreas with multiple cystic collections throughout. Largest discrete cyst measuring 1.5 x 1.4 x 2.6 cm. Very little normal parenchyma noted. The prominence of the common bile duct and intrahepatic radicals are suspicious for cystic pancreatic neoplasm partially obstructing the biliary ductal system. * CT abdomen/pelvis showing apparent cholecystectomy possibly accounting for intrahepatic and common bile duct dilatation though there is appearance of prompt tapering of the distal common bile duct with numerous cystic lesions within the pancreas. Pancreatic neoplasm could not be excluded. Diverticulosis without diverticulitis. Colonic wall thickening versus incomplete distention with possibly an underlying infectious/inflammatory process. * Urinalysis WNL Gastroenterology was consulted, Dr. Santacruz evaluated the patient. Status post biliary drain placement with IR on 12/10/17, and subsequent biliary drain exchange with biopsy of the distal bile duct mass on 12/11/2017. Biopsy was negative for malignancy. CT chest on 12/12/2017 showed no evidence of metastatic disease; right basilar atelectasis; 4.2 cm mass in the left lobe of the fibroid which may reflect goiter or less likely a neoplasm. TSH: 0.707, Free T4: 1.59 CT abdomen/pelvis revealed severe cystic change throughout the entire pancreas, mucinous cystic neoplasm is not excluded particularly in the tail where it extends into the splenic hilum. No hepatic lesions were identified. Patient underwent EUS with FNA 12/14/[address] Contreras which revealed diffusely abnormal pancreas with a cystic appearance and a dilated pancreatic duct, and an abnormal pancreatic head of unclear significance. Cytology results showing pancreatic adenocarcinoma. There is no evidence of metastatic disease. CA 19-9 elevated at 320.6. Hematology/oncology discussed diagnosis/treatment options with patient; her close friend (Russ) and granddaughter ( Mary) were present during this conversation. [place] treatment would be removal of the pancreas, however the patient is likely not a candidate for that procedure. Patient has declined chemotherapy previously; she would consider radiation for symptom management. Surgery was consulted to discuss the risks versus benefits of surgical interventions with the patient/family. Palliative Care was consulted to assist with symptom management and to discuss with the patient/family the benefits and burdens of her current illnesses and the options regarding future care. . Function/Cognitive Trajectory Patient is a 87-year-old female who developed abdominal pain, nausea, anorexia and unintentional weight loss approximately 4-5 weeks ago. She has experienced an acute decline status post newly diagnosed pancreatic adenocarcinoma. . Review of Systems ROS Limitations: Clinical Condition Constitutional: COMPLAINS OF: Fatigue, Weight loss (Patient reports unintentional weight loss of 10 pounds within 3 weeks), Change in appetite, Generalized weakness Gastrointestinal: COMPLAINS OF: Abdominal pain, Nausea, Vomiting Hematologic/Lymphatics: COMPLAINS OF: Bruising Past Family Social History Coded Allergies: No Known Allergies (Unverified , 12/09/17) Past Medical History Hyperbilirubinemia, pancolitis, cystic lesions of the body and tail of the pancreas- Suspicion for pancreatic mass - found to 12/07/2017 Type 2 diabetes mellitus, diet controlled History of hypertension Dementia Neuropathy Chronic lower extremity diabetic ulcers . Past Surgical History Hysterectomy Knee surgery . Reported Medications Gabapentin 1 tab by mouth twice a day Donepezil 5 mg by mouth daily Trenton 5/325 mg by mouth as needed for pain . Current Medications Medications (Trade) Dose Ordered Sig/Jesús Route Start Time Stop Time Status Last Admin (Aricept) 5 mg HS PO 12/09/17 21:00 12/20/17 00:04 (D50w (Vial) Inj) 50 ml UNSCH PRN IV PUSH 12/09/17 02:30 (Glucagon Inj) 1 mg UNSCH PRN OTHER 12/09/17 02:30 (NovoLOG SUPPLEMENTAL SCALE) 1 ACHS SLIDING SCALE SQ 12/09/17 08:00 12/20/17 08:32 (Zofran Inj) 4 mg Q6HR PRN IV PUSH 12/09/17 02:30 12/20/17 08:33 (Vasotec Inj) 2.5 mg Q6H PRN IV PUSH 12/10/17 16:00 12/14/17 17:24 (Catapres) 0.1 mg Q8HR PRN PO 12/10/17 16:00 12/20/17 04:54 (Norvasc) 10 mg DAILY PO 12/11/17 09:00 12/20/17 08:34 (Trenton 5-325 Mg) 1 tab Q4H PRN PO 12/14/17 16:30 12/19/17 05:15 (Pepcid) 10 mg BID PO 12/15/17 21:00 12/20/17 08:35 (Pill Splitter) 1 ea UNSCH PRN OTHER 12/15/17 14:45 (T[place]on 5-325 Mg) 2 tab Q4H PRN PO 12/16/17 08:15 12/20/17 08:35 Sodium Chloride 1,000 ml @ 75 mls/hr [id number] IV 12/18/17 23:00 12/18/17 22:43 Family History Mother with a history of CVA. Denies familial history of cancer. . Substance Use Tobacco: No smoking history Alcohol: None known Prescription med abuse: None known Illicits: None known . Psychosocial History Patient was born and raised in [place]. She has lived in [place] and [place] as well as [place]. Patient states her mother had 6 children, 4 of whom are still living (2 and [place] and one in [place]). 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 She had one son who is . She has 1 grand- daughter (Mary) who lives with her in [place]. She is especially close to her sister, Grace, who lives in [place]. . Spiritual/Cultural Factors Scientologist paz . Health Care Surrogate: Copy in medical record Date completed: 12/20/2017 . Health Care Surrogate(s): Patient designates her sister, Grace Santana, as her healthcare surrogate decision maker. Her granddaughter, Mary, was designated as the alternate healthcare surrogate decision-maker. . . Documented care wishes: No known documented care wishes have been completed. . Today's verbally stated goals: Comfort focused goals. Requesting hospice services for symptom management and end-of-life care. . Family/friends goals: Family supports patient's decision to transition to comfort focused care stating they do not believe she can tolerate further diagnostic procedures or aggressive interventions. . Ethical and Legal Issues No known ethical or legal issues impacting care at this time. . Physical Exam Vital Signs Date Time Temp Pulse Resp B/P (MAP) Pulse Ox O2 Delivery O2 Flow Rate FiO2 12/20/17 07:49 97.1 105 19 192/88 (122) 98 12/20/17 06:04 98.1 102 19 190/84 (119) 99 12/20/17 01:45 97.1 104 19 180/80 (113) 98 12/19/17 21:59 97.3 94 20 157/68 (97) 100 12/19/17 16:26 92 18 157/70 (99) 97 12/19/17 14:44 76 18 144/75 (98) 96 12/19/17 14:15 80 18 152/69 (96) 96 12/19/17 13:45 86 18 167/70 (102) 96 12/19/17 13:30 97.3 86 18 160/68 (98) 96 12/19/17 12:39 97.9 89 18 174/73 (106) 98 12/19/17 11:25 97.9 89 18 174/73 (106) 98 . Exam CONSTITUTIONAL/GENERAL: This is a frail, cachectic female patient who is in no acute distress TUBES/LINES/DRAINS: PIV 1, biliary drain SKIN: No jaundice, rashes, or lesions. Ecchymoses on upper extremities. Skin temperature appropriate. Not diaphoretic. Dressing on left lower extremity dry and intact HEAD: Atraumatic. Normocephalic. EYES: Pupils equal and round and reactive. Extraocular motions intact. No scleral icterus. No injection or drainage. Fundi not examined. ENT: Hearing grossly normal. Nose without bleeding or purulent drainage. NECK: Trachea midline. Supple, nontender. No palpable thyroid enlargement or nodularity. CARDIOVASCULAR: Regular rate and rhythm without murmurs, gallops, or rubs. No JVD. Peripheral pulses symmetric. RESPIRATORY/CHEST: Symmetric, unlabored respirations. Clear to auscultation. Breath sounds diminished bilaterally. No wheezes, rales, or rhonchi. GASTROINTESTINAL: Abdominal tenderness. Biliary drain in place. Active bowel sounds 4 quadrants GENITOURINARY: Without palpable bladder distension. MUSCULOSKELETAL: Extremities without clubbing, cyanosis, or edema. No mottling or clubbing. No obvious deformities LYMPHATICS: No palpable cervical or supraclavicular adenopathy. NEUROLOGICAL: Awake and alert. Lethargic. Follows commands. Cognitively sharp. Moves all extremities. Able to make needs known. PSYCHIATRIC: No obvious anxiety/depression. no apparent hallucinations or other psychotic thought process. . Diagnostic Tests Result Diagram: 12/17/17 0653 12/16/17 0550 Imaging 12/09/2017: MRCP 12/10/2017: Biliary drainage with stent placement. 12/11/2017: Cholangiography and biliary biopsy with internal/external drainage catheter exchange 12/14/2017: Endoscopic ultrasound with FNA Patient/Family Conference Present at Family Conference: Met with patient at bedside. Spoke to patient's sister and granddaughter via telephone. . Family Conference Location: Bedside, Telephone Issues Discussed: * Palliative care role, purpose, approach * Additional medical, psychosocial, and spiritual history * Patients general health, functional status, and cognitive changes in the months leading up to the current hospitalization * Patient/family understanding of the current medical problems * Patient/family understanding of prognosis * Patients goals of care as best understood from advance directives and/or conversations and/or values * Current medical treatment options and benefits/burdens of those options * Likely scenarios comparing ongoing aggressive care with a transition to comfort measures only * Questions answered to the best of my ability * Palliative care contact information provided . Assessment and Plan Disease Oriented Problem List: (1) Neuropathy (2) Type 2 diabetes mellitus (3) Pancreatic cancer (4) Diabetic leg ulcer (5) Biliary obstruction Symptom Scale: (1) Decrease in appetite (2) Pain (3) Nausea Pertinent Non-Medical Issues Psychosocial: Patient was born and raised in [place]. She has lived in [place] and [place] as well as [place]. Patient states her mother had 6 children, 4 of whom are still living (2 and [place] and one in [place]). 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 She had one son who is . She has 1 grand-daughter (Mary) who lives with her in [place]. She is especially close to her sister, Grace, who lives in [place]. Spiritual: Scientologist paz Legal: Patient designates her sister, Grace Santana, as her healthcare surrogate decision maker. Her granddaughter, Mary, was designated as the alternate healthcare surrogate decision-maker. Ethical issues impacting care: No known ethical issues impacting care at this time. . Important Contacts Grace Santana, sister/HCS: [phone] Mary Lester, grandchild: [phone] or [phone] Russ Coronado, family/other: [phone] . Prognosis Patient is a frail, cachectic, elderly female patient with newly pancreatic adenocarcinoma. She is symptomatic and is likely not a candidate for aggressive interventions. She has opted to transition to comfort focused care requesting hospice services for symptom management. Prognosis <6 months. . Code Status: No Code Plan * NO CODE-DNR/DNI * Decision making: Patient currently has insight and judgment related to her medical condition. In the event that she loses capacity for medical decision making, she designates her sister, Grace Santana, as her healthcare surrogate decision maker. Her granddaughter, Mary, was designated as the alternate healthcare surrogate decision-maker. * Copy of HCS designation form was emailed to patient's sister, Grace. * Spoke with patient's sister and granddaughter via conference call. Palliative care contact information provided. * Patient requesting hospice services for symptom management and end-of-life care. Family and medical team support patient's decision. HOSPICE CONSULT PENDING. * Discussed patient with bedside nurse (Marisol), case management and Dr. Altamirano. * Symptom management: = Pain: Multifactoral. Patient is a frail, cachectic, elderly female patient with newly diagnosed pancreatic adenocarcinoma as well as chronic lower extremity diabetic ulcers requiring weekly visits with wound care. Patient reporting right-sided abdominal pain that is rated 8-10 out of 10. Currently has Trenton ordered (5-325mg/tab) 1-2 tablets every 4 hours PRN for pain. 24 hour PRN requirements = 2 tablets 4. Patient reports she was previously using Trenton for symptom management of lower extremity wound. She will likely require increasing frequency/dosing given newly diagnosed adenocarcinoma. = Nausea: Likely related to newly diagnosed pancreatic adenocarcinoma , biliary obstruction. Current orders for ondansetron 4mg IV q6 hours PRN. Patient has had 2 doses in the past 24 hours. Patient will need to transition to oral route prior to discharge may consider ordering rectal suppository if patient is unable to tolerate oral. = Palliative care will continue to follow this patient throughout her hospitalization to establish trust, assist with symptom management and clarification of medical treatment goals. ADDENDUM: REFERRAL [facility] [phone]. BOTH SISTER AND GRANDCHILD NOTIFIED AND GIVEN [facility] CONTACT INFORMATION . Thank you for the opportunity to participate in the care of Ms. Petty. . Attestation To help prompt me to consider important information that might be impacting today's encounter and assessment, information from prior notes written by myself or my colleagues may have been "brought forward" into today's note. My signature on this note, however, is an attestation that I personally performed the exam, history, and/or decision-making noted today, and, unless otherwise indicated, the interactions with patient, family, and staff as well as the review of records all occurred today. I also attest that the listed assessment and stated plan reflect my best clinical judgment today based on the combination of historical information, prior notes, and today's exam/ interactions. When time spent is documented, it refers only to time spent today by the signer, or if indicated, combined time spent today by collaborating physician/nurse practitioner. . María Seals Dec 20, 2017 10:37
[2017-12-20] MEDS: ENALAPRILAT 2.5 MG/2 ML VIAL IV PUSH PRN (12:23)
[2017-12-21] VITALS: BP 149/72; PULSE 77; RESP 17; TEMP 99; O2SAT 97
[2017-12-21 04:00] VITALS: BP 170/82; PULSE 110; RESP 17; TEMP 98; O2SAT 100
[2017-12-21] MEDS: SODIUM CHLOR 0.9% 1000 ML INJ 1,000 ML IV SCH ×2 (05:45→17:07)
[2017-12-21] MEDS: ONDANSETRON HCL 4 MG/2 ML VIAL IV PUSH PRN (06:05)
[2017-12-21] MEDS: ACETAMINOPHEN/HYDROcodone 325 MG/5 MG TAB PO PRN ×3 (06:05→17:05)
[2017-12-21] MEDS: INSULIN ASPART SUPPLEMENTAL SCALE SQ SCH ×3 (07:21→17:06)
[2017-12-21] MEDS: FAMOTIDINE 20 MG TAB PO SCH (08:17)
--- NOTE | 2017-12-21 08:36 | HHI.PR ---
Subjective Remarks in no acute distress. pain is controlled. no new complaints. d/w the RN and no acute issues over night. Objective Vitals Vital Signs Date Time Temp Pulse Resp B/P (MAP) Pulse Ox O2 Delivery O2 Flow Rate FiO2 12/21/17 04:00 98.0 110 17 170/82 (111) 100 12/21/17 00:00 99.0 77 17 149/72 (97) 97 12/20/17 20:00 97.6 80 18 153/73 (99) 97 12/20/17 16:37 97.6 84 18 128/60 (82) 98 12/20/17 11:47 97.4 87 18 182/80 (114) 97 12/20/17 10:05 133/80 (97) I/O 12/20/17 12/20/17 12/20/17 12/21/17 12/21/17 12/21/17 07:00 15:00 23:00 07:00 15:00 23:00 # Voids 3 5 1 4 # Bowel Movements 0 Result Diagram: 12/17/17 0653 Imaging Last Impressions Bilary Stent Insertion 12/19/17 0000 Signed Impressions: Service Date/Time: Tuesday, December 19, 2017 12:57 - CONCLUSION: Uncomplicated biliary stent placement for 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 Ken Miller MD Chest CT 12/12/17 0000 Signed Impressions: Service Date/Time: Tuesday, December 12, 2017 22:22 - CONCLUSION: 1. No evidence of metastatic disease. 2. Right basilar atelectasis 3. 4.2 cm mass in the left lobe of thyroid which may reflect goiter or less likely neoplasm. Ken Miller MD Abdomen/Pelvis CT 12/12/17 0000 Signed Impressions: Service Date/Time: Tuesday, December 12, 2017 22:22 - CONCLUSION: 1. Severe cystic change throughout the entire pancreas, mucinous cystic neoplasm is not excluded particularly in tail where it extends into the splenic hilum. No hepatic lesions are identified Ken Miller MD Catheter Change 12/11/17 0000 Signed Impressions: Service Date/Time: Monday, December 11, 2017 14:34 - CONCLUSION: Uncomplicated tube cholangiography and biliary biopsy with internal/external drainage catheter exchange as described in detail above.. Bertram Chaudhari MD Bile Duct Drainage 12/10/17 0000 Signed Impressions: Service Date/Time: Sunday, December 10, 2017 14:38 - CONCLUSION: Uncomplicated fluoroscopic guided percutaneous biliary drainage as described in detail above. After adequate decompression of the biliary tree, the patient can return for dedicated cholangiography and forcep biopsy tomorrow. Bertram Chaudhari MD Cholangiopancreatography MRI 12/09/17 0000 Signed Impressions: Service Date/Time: Saturday, December 09, 2017 13:46 - CONCLUSION: 1. There is dilatation of the common bile duct measuring at 1.3 cm. There is narrowing of the distal common bile duct suspicious for a stricture. There is some nonspecific increased soft tissue in the head of the pancreas. This is suspicious for a pancreatic mass. Recommend ERCP for further evaluation. 2. There is diffuse dilatation of the main pancreatic duct with numerous cystic type lesions throughout the entire pancreas. This is probably related to chronic pancreatitis. Fredy De La Fuente MD Objective Remarks GENERAL: elderly female, in no apparent distress. CARDIOVASCULAR: Regular rate and regular rhythm without murmurs, gallops, or rubs. RESPIRATORY: Clear to auscultation. Breath sounds equal bilaterally. No wheezes , rales, or rhonchi. GASTROINTESTINAL: Abdomen soft,mild lower abdominal tenderness, nondistended. Normal, active bowel sounds MUSCULOSKELETAL: Extremities without clubbing, cyanosis, or edema. NEURO: Alert & Oriented x4 to person, place, time, situation. Moves all ext x4 Procedures ERCP/ biliary drain placement/ endoscopic ultrasound with FNA/ biliary stent placement. Medications and IVs Inpatient Medications Acetaminophen/ Hydrocodone Bitart ([place] 5-325 Mg) 2 tab Q4H PRN PO PAIN 6-10 Last administered on 12/21/17at 06:05; Start 12/16/17 at 08:15 Amlodipine Besylate (Norvasc) 10 mg DAILY PO Last administered on 12/21/17at 08: 17; Start 12/11/17 at 09:00 Chlorhexidine Gluconate (Chlorhexidine 2% Cloth) 3 pack BOBBIN TRUCKER PRN TOPICAL SEE LABEL COMMENTS; Start 12/13/17 at 20:00; Stop 12/16/17 at 19:59; Status DC Clonidine (Catapres) 0.1 mg Q8HR PRN PO SBP>180 or DBP>100 Last administered on 12/20/17at 04:54; Start 12/10/17 at 16:00 Dextrose (D50w (Vial) Inj) 50 ml UNSCH PRN IV PUSH HYPOGLYCEMIA-SEE COMMENTS; Start 12/09/17 at 02:30 Diatrizoate Meglum/ Diatrizoate Sod ( Gastroview Liq) 18 ml ONCE ONCE PO Last administered on 12/12/17at 20:49; Start 12/12/17 at 20:15; Stop 12/12/17 at 20:16; Status DC Donepezil HCl (Aricept) 5 mg HS PO Last administered on 12/20/17at 20:20; Start 12/09/17 at 21:00 Enalaprilat (Vasotec Inj) 2.5 mg Q6H PRN IV PUSH SBP>180 or DBP>100 Last administered on 12/20/17at 12:23; Start 12/10/17 at 16:00 Famotidine (Pepcid Inj) 20 mg Q12H IV PUSH Last administered on 12/13/17at 08:47 ; Start 12/11/17 at 21:00; Stop 12/13/17 at 14:32; Status DC Famotidine (Pepcid) 10 mg BID PO Last administered on 12/21/17at 08:17; Start 12/15/17 at 21:00 Glucagon (Glucagon Inj) 1 mg UNSCH PRN OTHER HYPOGLYCEMIA-SEE COMMENTS; Start 12/09/17 at 02:30 Insulin Aspart (NovoLOG SUPPLEMENTAL SCALE) 1 ACHS SLIDING SCALE SQ Last administered on 12/20/17at 16:35; Start 12/09/17 at 08:00 Insulin Human Regular (NovoLIN R INJ) See Protocol Table ... BOBBIN TRUCKER PRN SQ SEE PROTOCOL TABLE; Start 12/13/17 at 20:00; Stop 12/16/17 at 19:59; Status DC Lactated Ringer's 1,000 ml @ 30 mls/hr Q24H PRN IV SEE LABEL COMMENTS; Start at 20:00; Stop 12/16/17 at 19:59; Status DC Lactulose (Lactulose Liq) 30 ml NOW ONCE PO Last administered on 12/12/17at 20: 50; Start 12/12/17 at 19:30; Stop 12/12/17 at 19:50; Status DC Metoprolol Tartrate (Lopressor) 25 mg BOBBIN TRUCKER PRN PO SEE LABEL COMMENTS; Start 12/13/17 at 20:00; Stop 12/16/17 at 19:59; Status DC Miscellaneous (Pill Splitter) 1 ea UNSCH PRN OTHER SEE LABEL COMMENTS; Start at 14:45 Miscellaneous Information ALL NURSING DEPARTME... UNSCH PRN .XX SEE LABEL COMMENTS; Start 12/10/17 at 14:45; Stop 12/11/17 at 14:44; Status DC Morphine Sulfate (Morphine Inj) 1 mg Q3H PRN IV PUSH Pain > 3 Last administered on 12/12/17at 06:33; Start 12/09/17 at 02:30; Stop 12/12/17 at 14:32 ; Status DC Ondansetron HCl (Zofran Inj) 4 mg Q6HR PRN IV PUSH NAUSEA OR VOMITING Last administered on 12/21/17at 06:05; Start 12/09/17 at 02:30 Potassium Bicarb/ Potassium Chloride (K-Lyte Cl Eff) 50 meq ONCE ONCE PO Last administered on 12/12/17at 09:12; Start 12/12/17 at 10:00; Stop 12/12/17 at 10:01; Status DC Povidone Iodine (Betadine 5% Antisepsis Kit) 1 applic BOBBIN TRUCKER PRN EACH NARE SEE LABEL COMMENTS; Start 12/13/17 at 20:00; Stop 12/16/17 at 19:59; Status DC Sodium Chloride 1,000 ml @ 75 mls/hr [id number] IV Last administered on 12/21/17at 05:45; Start 12/18/17 at 23:00 Tramadol HCl (Ultram) 50 mg Q4H PRN PO pain 3-10 Last administered on 12/14/17at 12:35; Start 12/12/17 at 14:45; Stop 12/14/17 at 16:24; Status DC A/P Problem List: (1) Biliary obstruction ICD Code: K83.1 - Obstruction of bile duct (2) Type 2 diabetes mellitus ICD Code: E11.9 - Type 2 diabetes mellitus without complications Status: Chronic (3) Hypertension ICD Code: I10 - Essential (primary) hypertension (4) Neuropathy ICD Code: G62.9 - Polyneuropathy, unspecified (5) Diabetic leg ulcer ICD Code: E11.622 - Type 2 diabetes mellitus with other skin ulcer; L97.909 - Non-pressure chronic ulcer of unspecified part of unspecified lower leg with unspecified severity Assessment and Plan A/P pancreatic cancer Biliary obstruction s/p ERCP sphincterectomy was attempted 12/08/[address] Lawler -Status post biliary drain placement by IR on 12/10 and cholangiogram done on . -s/p endoscopic US with FNA with : Diffusely abnormal pancreas with a cystic appearance and a dilated pancreatic duct/Abnormal pancreatic head of unclear significance. pathology with poorly differentiated adenocarcinoma - CT scan of the chest abdomen and pelvis showed severe cystic changes throughout the entire pancreas and 4.2 cm left thyroid mass. Common bile duct pathology negative for any malignancy. s/p biliary stent placement on 12/19/17. GI has signed off. palliative care consult appreciated; patient decided to proceed with hospice which has been consulted. Left thyroid mass -TSH WNL- f/u as outpatient. Hypertension - Continue with amlodipine to 10 mg p.o. daily. Continue with Vasotec and clonidine as needed. -consider one dose of Procardia today if BP doesn't improve. Type 2 Diabetes Mellitus -changed to 1800 hamlet ADA - Accu-Cheks before meals and at bedtime with low-dose NovoLog sliding scale coverage - Monitor trends and blood glucose readings and adjust treatments as indicated Diabetic leg ulcers - Consulted wound care nurse DVT prophylaxis SCDs/TEDs right lower extremity only, contraindicated due to left lower extremity wounds Discharge Planning dc home with hospice. see med list. d/w the patient and RN. time spent 35 min. Yen Stern MD Dec 21, 2017 08:36
[2017-12-21 08:37] VITALS: BP 116/58; PULSE 81; RESP 17; TEMP 98.4; O2SAT 98
--- NOTE | 2017-12-21 08:37 | HHI.DS ---
Discharge Summary Admission Date Dec 08, 2017 at 23:54 Discharge Date: Dec 21, 2017 Admitting Diagnosis Biliary Obstruction . (1) Pancreatic cancer ICD Code: C25.9 - Malignant neoplasm of pancreas, unspecified Diagnosis: Principal (2) Biliary obstruction ICD Code: K83.1 - Obstruction of bile duct Diagnosis: Principal (3) Type 2 diabetes mellitus ICD Code: E11.9 - Type 2 diabetes mellitus without complications Diagnosis: Secondary Status: Chronic (4) Hypertension ICD Code: I10 - Essential (primary) hypertension Diagnosis: Secondary (5) Neuropathy ICD Code: G62.9 - Polyneuropathy, unspecified Diagnosis: Secondary (6) Diabetic leg ulcer ICD Code: E11.622 - Type 2 diabetes mellitus with other skin ulcer; L97.909 - Non-pressure chronic ulcer of unspecified part of unspecified lower leg with unspecified severity Diagnosis: Secondary Procedures ERCP/ biliary drain placement/ endoscopic ultrasound with FNA/ biliary stent placement. Brief History - From Admission Ms. Petty is an 87 year-old female with a history of diet-controlled DM, hypertension, neuropathy, and chronic left leg diabetic ulcers who presented to [facility] in [place] on 12/07/17 for evaluation for 3 weeks of diffuse abdominal pain with nausea, poor appetite and unintentional 10 pound weight loss in a 3 week period. Had reported 1 melanotic stool that occurred 3 weeks ago with subsequent white-appearing stools. CT of the abdomen showed diffuse colonic wall thickening with mild infiltration of the surrounding fat concerning for pancolitis and also intrahepatic biliary ductal dilation with innumerable cystic lesions involving the body and the tail of the pancreas possibly reflecting malignancy or multiple pseudocysts. Admission bilirubin was 7.2, AST was 217, ALT was 338, and alkaline phosphatase 847. Imaging was suspicious for pancreatic neoplasm partially obstructing the biliary ductal system. ERCP sphincterectomy was attempted 12/08/[address] Lawler that he was unable to get through the obstruction and now plans a percutaneous cholangiogram this morning. Therefore, the patient was transferred from [place] to [facility] for the procedure with admission to the hospitalist service for medical optimization of diabetes and hypertension. Patient reports severe abdominal pain brought her to the ED in [place]. She states she had 7 loose liquid yellow stools in the ED there and the abdominal pain felt better. She also states she had some nausea and vomiting. Currently , all she is complaining of is mild diffuse abdominal pain. She reports adequate relief with IV morphine. She has some mild cognitive impairment c/w dementia. She reports that she has had the Left lower leg wounds r/t diabetes since "just after " 2016 and sees a [place] wound care physician once weekly for this. She states that she takes PRN [place] for the leg wound pain. CBC/BMP: 12/17/17 0653 Imaging Last Impressions Bilary Stent Insertion 12/19/17 0000 Signed Impressions: Service Date/Time: Tuesday, December 19, 2017 12:57 - CONCLUSION: Uncomplicated biliary stent placement for 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 Ken Miller MD Chest CT 12/12/17 0000 Signed Impressions: Service Date/Time: Tuesday, December 12, 2017 22:22 - CONCLUSION: 1. No evidence of metastatic disease. 2. Right basilar atelectasis 3. 4.2 cm mass in the left lobe of thyroid which may reflect goiter or less likely neoplasm. Ken Miller MD Abdomen/Pelvis CT 12/12/17 0000 Signed Impressions: Service Date/Time: Tuesday, December 12, 2017 22:22 - CONCLUSION: 1. Severe cystic change throughout the entire pancreas, mucinous cystic neoplasm is not excluded particularly in tail where it extends into the splenic hilum. No hepatic lesions are identified Ken Miller MD Catheter Change 12/11/17 0000 Signed Impressions: Service Date/Time: Monday, December 11, 2017 14:34 - CONCLUSION: Uncomplicated tube cholangiography and biliary biopsy with internal/external drainage catheter exchange as described in detail above.. Bertram Chaudhari MD Bile Duct Drainage 12/10/17 0000 Signed Impressions: Service Date/Time: Sunday, December 10, 2017 14:38 - CONCLUSION: Uncomplicated fluoroscopic guided percutaneous biliary drainage as described in detail above. After adequate decompression of the biliary tree, the patient can return for dedicated cholangiography and forcep biopsy tomorrow. Bertram Chaudhari MD Cholangiopancreatography MRI 12/09/17 0000 Signed Impressions: Service Date/Time: Saturday, December 09, 2017 13:46 - CONCLUSION: 1. There is dilatation of the common bile duct measuring at 1.3 cm. There is narrowing of the distal common bile duct suspicious for a stricture. There is some nonspecific increased soft tissue in the head of the pancreas. This is suspicious for a pancreatic mass. Recommend ERCP for further evaluation. 2. There is diffuse dilatation of the main pancreatic duct with numerous cystic type lesions throughout the entire pancreas. This is probably related to chronic pancreatitis. Fredy De La Fuente MD PE at Discharge GENERAL: elderly female, in no apparent distress. CARDIOVASCULAR: Regular rate and regular rhythm without murmurs, gallops, or rubs. RESPIRATORY: Clear to auscultation. Breath sounds equal bilaterally. No wheezes , rales, or rhonchi. GASTROINTESTINAL: Abdomen soft,mild lower abdominal tenderness, nondistended. Normal, active bowel sounds MUSCULOSKELETAL: Extremities without clubbing, cyanosis, or edema. NEURO: Alert & Oriented x4 to person, place, time, situation. Moves all ext x4 Hospital Course pancreatic cancer Biliary obstruction s/p ERCP sphincterectomy was attempted 12/08/[address] Lawler -Status post biliary drain placement by IR on 12/10 and cholangiogram done on . -s/p endoscopic US with FNA with : Diffusely abnormal pancreas with a cystic appearance and a dilated pancreatic duct/Abnormal pancreatic head of unclear significance. pathology with poorly differentiated adenocarcinoma - CT scan of the chest abdomen and pelvis showed severe cystic changes throughout the entire pancreas and 4.2 cm left thyroid mass. Common bile duct pathology negative for any malignancy. s/p biliary stent placement on 12/19/17. GI has signed off. palliative care consult appreciated; patient decided to proceed with hospice which has been consulted. Left thyroid mass -TSH WNL- f/u as outpatient. Hypertension - Continue with amlodipine to 10 mg p.o. daily. Type 2 Diabetes Mellitus -changed diet to 1800 hamlet ADA Diabetic leg ulcers - Consulted wound care nurse Pt Condition on Discharge: Fair Discharge Disposition: Hospice/Med Facility Discharge Time: > 30 minutes Discharge Instructions DIET: Follow Instructions for: Diabetic Diet Activities you can perform: Regular-No Restrictions Yen Stern MD Dec 21, 2017 08:36
--- NOTE | 2017-12-21 08:41 | MB ---
cc: Yanick Gudino MD DATE OF CONSULT: 12/20/2017 PERSON REQUESTING CONSULTATION: Dr. Altamirano REASON FOR CONSULTATION: IPMN and adenocarcinoma of the pancreas. 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 The patient was found to have a biliary obstruction, has undergone biliary drain placement, with subsequent internalization. Biopsy of the pancreas head by Dr. Knowles on 12/14/2017 does show poorly differentiated adenocarcinoma. Staging imaging including a CT scan of abdomen and pelvis on 12/12 does show severe cystic change throughout the entire pancreas, consistent with mucinous neoplasm. There is no evidence of any metastatic disease. Currently, the patient is in relatively ill state with having undergone recent weight loss, as well as loss of appetite, as well as bouts of constipation, as well as diarrhea per the family. She does have also significant history of nearly lifelong diabetes, as well as hypertension, neuropathy and now with mild dementia. The patient has past surgical history of hysterectomy. The patient is considering discharge home with hospice, but was inquiring about possible treatment options for her pancreatic adenocarcinoma. REVIEW OF SYSTEMS: A 12-point review of systems was conducted with the patient and the family, as well as reviewed in the chart and is negative, except for pertinent positives mentioned above in History of Present Illness. PAST MEDICAL HISTORY: Hypertension, diabetes as above. PAST SURGICAL HISTORY: Hysterectomy and knee surgery as above. ALLERGIES: NO KNOWN DRUG ALLERGIES. MEDICATIONS: Pepcid, hydrocodone, Vasotec, clonidine, Aricept, insulin. SOCIAL HISTORY: The patient currently does not use any alcohol, tobacco or illicit drug use. Uncertain of previous social behavior. FAMILY HISTORY: No history of pancreatic malignancy per available record. PHYSICAL EXAMINATION: VITAL SIGNS: Temperature 97.1 degrees, heart rate 105, blood pressure 192/88, O2 saturation 98%. GENERAL: The patient is a frail appearing, chronically ill and elderly female in patient's hospital bed. HEENT: Head is normocephalic, atraumatic. Pupils round, reactive and accommodative to light. Sclerae is anicteric. Oral cavity is clear. Airway is patent. NECK: Supple. No JVD. PULMONARY: Breath sounds present bilaterally. Nonlabored breathing pattern. CARDIOVASCULAR: Heart is regular rate and rhythm. No murmurs. ABDOMEN: Soft, nondistended. No hepatomegaly, no ascites, no masses, no hernias. Normal sounds. BACK: No CVA tenderness. EXTREMITIES: No clubbing, cyanosis or edema. NEUROLOGIC: The patient is oriented to person and place. Asks questions appropriately. Cranial nerves 2-12 are grossly intact. Moving all extremities equally, nonfocally. LABORATORY DATA: Significant for hemoglobin 11. CA 19-9 is 320. Albumin is 2.6, bilirubin is 2.0, AST 30, alkaline phosphatase is 507, ALT is 91. 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 The patient has no obvious signs of metastatic disease. I had an extensive discussion with the patient and family members in the room about IPMN, as well as the risk of malignancy. I also discussed pancreatic carcinoma and the staging and treatment options. I specifically discussed surgical options for IPMN. All of their questions are answered to their satisfaction. I feel the patient is at substantial increased risk for any major surgical intervention at this time. Due to the relatively poor prognosis related with treatment, especially surgery alone with adenocarcinoma, as well as the patient's frail state, I feel the patient is not a surgical candidate at this time. I discussed palliative options and did also encourage the patient to seek an opinion about radiation palliatively. Thank you very much for this consultation. My contact information was provided to the patient and the family, and they will follow up with me as needed. We will sign off. MD JUAN Vee/SCOTT , 04:56 PM , 05:31 PM
--- NOTE | 2017-12-21 10:53 | PD.RAD ---
Post Procedure Progress Note Pre Procedure Diagnosis: (1) Pancreatic cancer (2) Biliary obstruction Post Procedure Diagnosis: (1) Pancreatic cancer (2) Biliary obstruction Procedure Date: Dec 21, 2017 Supervising Radiologist: Andrea Michele Estimated blood loss: None Plan of Activity Patient to Unit: Nursing Unit Patient Condition: Poor Additional Comments: Pt. is post sarai expanding stent placement in the CBD. Cholangiogram completed. CBD is patent with good drainage. Drainage cath removed. Full dictated report to follow. See PACS Report for procedural detail/treatment Andrea Michele MD Dec 21, 2017 10:53
[2017-12-21 11:12] VITALS: BP 148/75; PULSE 92; RESP 20; TEMP 98.3; O2SAT 98
--- NOTE | 2017-12-21 12:08 | RADRPT ---
EXAM DATE/TIME: 12/21/2017 09:53 [facility] COMPARISON: BILIARY STENT PLACEMENT THRU EXISTING ACCESS, December 19, 2017, 12:57. INDICATIONS : Patient presents with biliary tube and no longer in need of it. MEDICAL HISTORY : Hypertension Diabetes SURGICAL HISTORY : Hysterectomy Knee surgery ENCOUNTER: Sequela ACUITY: 3 days PAIN SCORE: 0/10 FLUORO TIME: 0.2 minutes IMAGE SERIES: 1 CONTRAST: 7 cc Omnipaque (iohexol) 350 PROCEDURE : Clinical history: 87-year-old with known pancreatic cancer and biliary obstruction post stenting of the common bile wade t. The patient was placed on the fluoroscopy table. The existing percutaneous biliary drain was accessed using sterile technique. Approximately 10 cc of contrast was administered through the drain. The examination demonstrated the stented segment of common bile duct be patent. There is debris withi n the stent. There is adequate biliary to bowel transit. The intrahepatic ducts are normal in caliber . The existing drain was removed without difficulty. CONCLUSION: The patient has undergone stenting of the common bile duct. The stented segment of duct is patent. Th e existing drain was removed. Andrea Michele MD on December 21, 2017 at 12:04 Board Certified Radiologist. This report was verified electronically.
[2017-12-21 16:03] VITALS: BP 136/63; PULSE 82; RESP 20; TEMP 98.2; O2SAT 99
== END 2017-12-21 19:05 | disposition hospice, inpatient (51) | DRG 435 ==
LOC: N05A 23:54
PROVIDERS: ADMIT Internal Medicine; ATTEND Internal Medicine
PROC: 0F9930Z Drainage of Common Bile Duct with Drainage Device, Percutaneous Approach (ICD-10-PCS; principal; 2017-12-10)
PROC: 0F793DZ Dilation of Common Bile Duct with Intraluminal Device, Percutaneous Approach (ICD-10-PCS; 2017-12-10)
PROC: 0FB93ZX Excision of Common Bile Duct, Percutaneous Approach, Diagnostic (ICD-10-PCS; 2017-12-11)
PROC: 0F2BX0Z Change Drainage Device in Hepatobiliary Duct, External Approach (ICD-10-PCS; 2017-12-11)
PROC: 0FBG8ZX Excision of Pancreas, Via Natural or Artificial Opening Endoscopic, Diagnostic (ICD-10-PCS; 2017-12-14)
PROC: BF47ZZZ Ultrasonography of Pancreas (ICD-10-PCS; 2017-12-14)
PROC: 0F793DZ Dilation of Common Bile Duct with Intraluminal Device, Percutaneous Approach (ICD-10-PCS; 2017-12-19)
PROC: 0FPBX0Z Removal of Drainage Device from Hepatobiliary Duct, External Approach (ICD-10-PCS; 2017-12-21)
DX: C25.0 Malignant neoplasm of head of pancreas (principal); K83.1 Obstruction of bile duct; E11.40 Type 2 diabetes mellitus with diabetic neuropathy, unspecified; F03.90 Unspecified dementia, unspecified severity, without behavioral disturbance, psychotic disturbance, mood disturbance, and anxiety; L97.929 Non-pressure chronic ulcer of unspecified part of left lower leg with unspecified severity; E11.622 Type 2 diabetes mellitus with other skin ulcer; I10 Essential (primary) hypertension; Z51.5 Encounter for palliative care
CPT/HCPCS: 43242; 47531; 47536; 47537; 47538; 47540; 47542; 47543; 71260; 74177; 74183; 76377; 80053; 82948; 83735; 84132; 84439; 84443; 85025; 85027; 85610; 85730; 86301; 88173; 88304; 88305; 99152; 99153; A9579; C1725; C1729; C1769; C1876; C1887; C1894; J1100; J1170; J1815; J1956; J2250; J2270; J2370; J2405; J3010; J7030; Q9963; Q9967